=== PATIENT | male | born 1960 | race Caucasian/White ===

== ENCOUNTER → 2017-05-16 | Outpatient (CLI) | payer OTHER ==
--- NOTE | 2017-05-17 05:53 | PAP/PSG TECHNICIAN REPORT ---
[facility] [employer] Worker Polysomnogram Report Study name: None Report date: 05/17/2017 Study date: 05/16/2017 Referring Physician: DOT MIRANDA Name: EVELYN AKERS Interpreting Physician: Tyron Nicole D.O. 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 Sex: Male Age: 57 StudyType: PSG Weight: 295 lbs Height: 57 years, Height 5' 9" BMI: 43.56 Medications: ATORVASTATIN CALCIUM 40 MG, FUROSEMIDE 40 MG, HYDRALAZINE HCL 50 MG, ISOSORBIDE MONO TITRATE 60 MG, LISINOPRIL 10 MG, POTASSIUM CL 20 MEQ, SPIRONOLACTONE 25 MG, TAMSULOSIN HCL 0.4 MG Patient History PATIENT HAS HISTORY OF HYPERTENSION, LOUD SNORING, FATIGUE AND DAYTIME SLEEPINESS. HE IS HERE TODAY FOR AN EVALUATION FOR ANT. 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 ESS = 5 RM 5 Parameters Monitored NPSG: E1-M2, E2-M1, Fp1-M2, Fp2-M1, F3-M2, F4-M2, F4-M1, C3-M2, C4-M2, C4-M1, O1-M2, O2-M2, O2-M1, T3-M2, T4-M1, P3-M2, P4-M1, CHIN1, CHIN2, HR, EKG, Legs, PFLOW, SNOR, FLOW, CFLOW, Tidal Volume, THOR, ABDO, SpO2, PLTH, CPRESS, ETCO2 Wave, ETCO2, pH Sleep Architecture Sleep Stages Time at Lights Off 10:43:20 PM STAGES Time (min.) TST (%) Time at Lights On 5:26:20 AM Wake 221.0 -- Total Recording Time (TRT) 403.50 min. N1 27.5 15 Total Sleep Period (TSP) 383.0 min. N2 144.5 79 Total Sleep Time (TST) 182.0min. N3 7.0 4 Awake Time 221.0 min. REM 3.0 2 Wake after Sleep Onset 201.0 min. Sleep Efficiency (SE) 45 % Sleep Onset Latency (NIKOLE) 20.0 min. Number of Stage 1 Shifts None Awakenings 19 Stage Changes 81 Number of REM periods 3 REM 3.0 2 REM Latency 258.0 min. NREM 179.0 98 Body Position Analysis Supine Right Left Side Prone Vertical Total Sleep Time (min.) 90.3 134.3 41.0 175.31 47.5 0.0 Total Sleep Time (%) 0% 74% 23% 96 4% N/A% Total Sleep Time REM (min.) 0.0 3.0 0.0 None 0.0 0.0 Total Sleep Time NREM (min.) 0.0 131.3 41.0 None 6.7 0.0 Intermittent Wake (min.) 90.3 59.9 29.9 None 40.8 0.0 Total Sleep Period (%) 23% None None None None None Arousals Myoclonus (PLM) * Events Count Index Events Count Index Spontaneous 20 7 Events Awake (PLMW) 265 71.9 Respiratory 63 21.4 Events Asleep w/ Arousal (PLMA) 5 1.6 PLM 5 2 Events Asleep w/o Arousal (PLMS) 68 22.4 Snoring 21 7 Total Asleep 73 24.1 Total 109 36 Total 338 50 Respiratory Analysis * CA OA MA CH H RERA Total Count 0 28 0 0 213 0 241 Index 0.0 9.2 0.0 0 70.2 0 79.5 Mean Duration 0.0 20.9 0.0 0.00 18.1 0.0 18.5 Longest Duration 0.0 34.7 0.0 0.00 0.0 0.0 40.9 Respiratory Event Summary Total Supine ~Supine Right Left Prone REM NREM Apneas Count 28 N/A 28 13 10 5 2 26 Index 9.2 N/A 9 5.8 14.6 45 40 9 Hypopneas (4% Desat) Count 213 N/A 213 169 43 1 1 212 Index 70.2 N/A 70 75.5 62.9 9.0 20.0 71.1 Apneas & All Hypopneas Count 241 N/A 241 182 53 6 3 238 Index 79.5 N/A 79 81 78 54 60.0 79.8 Respiratory Events ([place] Sander+All Hyp+RERA) Count 241 N/A 241 182 53 6 3 238 Index 79.5 N/A 79 81.3 77.6 53.8 60.0 79.8 Respiratory Related Arousal Count 63 N/A 65 40 21 4 2 63 Index 21.4 N/A 21 18 31 36 40 21 Snoring Analysis Supine Right Left Prone REM NREM Total Snore duration 10.4 min Snores count N/A 378 118 21 0 517 517 Snore mean duration 1.2 Sec Snores index N/A 169 173 188 0.0 173.3 170.4 TST with snoring (%) 5.7% Desaturation Event Summary: Minimum %SpO2 Event Count Mean/Min/Max Duration(sec.) Desaturation Index % Time In Bed > 90 191 23.0 / 7.5 / 59.8 166.3 17.9 86 - 90 241 21.7 / 6.9 / 59.8 61.2 61.4 81 - 85 22 13.7 / 8.0 / 24.8 17.2 19.9 76 - 80 0 N/A 0.0 0.7 71 - 75 0 N/A 0.0 0.0 66 - 70 0 N/A 0.0 0.0 61 - 65 0 N/A 0.0 0.0 56 - 60 0 N/A 0.0 0.0 51 - 55 0 N/A 0.0 0.0 < 50 0 N/A 0.0 0.0 Total REM NREM Awake <50% 0.0 min. 0.0 min. 0.0 min. 0.0 min. 51 - 60% 0.0 min. 0.0 min. 0.0 min. 0.0 min. 61 - 70% 0.0 min. 0.0 min. 0.0 min. 0.0 min. 71 - 80% 2.7 min. 0.7 min. 1.9 min. 0.0 min. 81 - 90% 312.7 min. 1.9 min. 147.2 min. 163.6 min. 91 - 100% 68.9 min. 0.4 min. 29.8 min. 38.7 min. Average 88 84 88 88 Minimum SpO2 74 78 74 80 Desaturation Event Index 51.1 100.0 83.1 25.2 # Desat. 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 kAers slept in the right, left and supine positions. PVC's noted. Leg movements noted. No bruxism noted. Snoring was noted and scored as a 3 on a scale of 1 through 5. (0=no snoring, 5=snoring loud enough to be heard through a closed door or down the [address]) Mr. Akers awoke to use the restroom 2 times during the night. Mr. Akers stated I did not sleep as well as I do when I am in my own bed. Mr. Akers sat at the edge of the bed several times coughing throughout the night. He complained that air was dry and was the reason he was coughing so much. The final report will be interpreted and signed by a sleep physician. The completed physician report will then be placed in the patient medical record. Therapy (cm H2O) 0 TIB (min.) 403.0 TST (min.) 182.0 Sleep Onset (min.) 20.0 REM Onset From Sleep (min.) 258.0 Sleep Efficiency % 45 Wakefulness (%) 55 Wakefulness (min.) 221.0 NREM 1 (%) 15 NREM 1 (min.) 27.5 NREM 2 (%) 79 NREM 2 (min.) 144.5 NREM 3 (%) 4 NREM 3 (min.) 7.0 REM (%) 2 REM (min.) 3.0 # Arousals 109 Arousal Index 36 # Snore 517 Snore Index 170.4 AHI 79.5 AHI Supine N/A AHI Non-Supine 79 NREM AHI 79.8 REM AHI 60.0 RDI 79.5 # Obstructive Apnea 28 # Central Apnea 0 # Mixed Apnea 0 # Hypopneas 213 RERAs 0 Total Respiratory Events 243 Time Below SpO2 89% (min.) 116.6 Mean NREM SpO2 (%) 88 Mean REM SpO2 (%) 84 Mean Sleep SpO2 (%) 88 Min NREM SpO2 (%) 74 Min REM SpO2 (%) 78 Position Supine (min.) 90.3 Position Non-supine (min.) 182.0 LM Index Sleep 24.1 LM Index NREM 23.5 LM Index REM 60.0 Mean Heart Rate (bpm) 68 Min Heart Rate (bpm) 54
--- NOTE | 2017-05-22 07:40 | Sleep Study ---
Sleep Study Report Date of Service: 05/16/2017 Sleep Study Report Clinical data: The patient is a 57-year-old male referred by DOT Malave. He has a history of snoring, fatigue, and excessive daytime somnolence. He has a history of hypertension. His [place] Sleepiness Scale score is 5 out of a possible 24. This was a diagnostic in-lab sleep study. Sleep architecture: The total sleep period was 383.0 minutes. The total sleep time was 182.0 minutes. The sleep efficiency was severely reduced to 45%. The sleep latency was 20 minutes. Wake after sleep onset was significantly elevated at 201.0 minutes. The REM latency was severely prolonged to 258 minutes. Sleep consisted of stage N1 15%, stage N2 79%, stage N3 4%, and stage REM 2%. Arousal data: The patient had a total of 109 arousals including 20 spontaneous arousals, 63 respiratory arousals, 5 PLM arousals, and 21 snoring arousals. The arousal index was significantly elevated at 36. PLM data: Patient had a total of 73 periodic limb movements of sleep for a PLM index of 24.1. There were 5 arousals associated with limb movements for a PLM arousal index of 1.6. EKG: The cardiac rates ranged from 54 to 83 beats per minute. The average heart rate was 68 beats per minute. The rhythm was normal sinus. There were occasional PVCs. Respiratory data: Patient had a total of 241 respiratory events including 28 obstructive apneas and 213 hypopneas. The longest apnea was 34.7 seconds. The mean duration of the apneas was 20.9 seconds. The mean duration of the hypopneas was 18.1 seconds. The apnea-hypopnea index was elevated at 79.5 events per hour. This represents severe sleep apnea. Oximetry data: The average saturation for the night was 88%. The minimum saturation was 74%. There was a total of 224.7 minutes with saturations less than 89%. Change Management Consultant comments: Patient slept on the right, left, and supine positions. PVCs were noted. Leg movements noted. No bruxism noted. Snoring was noted and scored as a 3 on a scale of 1 through 5. The patient awaken to use the restroom 2 times during the night. He sat on the edge of the bed several times coughing throughout the night. He complained that air was dry and was the reason he was coughing so much. Impressions: 1. Obstructive sleep apnea-severe Comments: Patient had a severe decrease in sleep efficiency. He had relatively little sleep in the first half of the night. This is why a split study could not be done. His sleep efficiency was poor. His sleep architecture showed most of the night was just in stage N1 and stage N2 with very little stage N3 or REM sleep. His sleep was very poorly consolidated. There were a modest number of limb movements but with relatively few arousals. He had significant hypoxia throughout most of the night. Recommendations: 1. It is advised that the patient be given a trial of nasal CPAP. This could be accomplished by referring the patient back for a CPAP titration study. Alternatively he could be set up with an auto CPAP device. 2. The patient has a severe elevation of body mass index. A weight reduction program is advised. 3. If possible the patient should avoid sleeping in the supine position. Typically there is more respiratory events supine than other positions. 4. The patient should be advised of the appropriate principles of sleep hygiene including having a regular sleep-wake schedule and allowing approximately 7.5 hours of sleep per night. Copies To 1: Tyron Nicole DO; Fatou Donovan C.R.N.P.
== END | disposition home or self-care (01) ==
LOC: C.NEUR 21:00
PROVIDERS: ATTEND Nurse Practitioner Adult Health
DX: G47.33 Obstructive sleep apnea (adult) (pediatric) (principal)

== ENCOUNTER 2017-06-24 08:53 | Emergency (ER) | payer OTHER ==
[~2017-06-24] VITALS: Ht 175.3 cm; Wt 146.6 kg
[2017-06-24 09:07] VITALS: TEMP 38; Ht 175.3 cm; Wt 146.6 kg
[2017-06-24] MEDS ORDERED: ACETAMINOPHEN 500 MG TAB PO STA (10:03)
--- NOTE | 2017-06-24 10:04 | DIAGNOSTIC IMAGING REPORT ---
CHEST ONE VIEW PORTABLE CLINICAL HISTORY: cough, fever COMPARISON STUDY: 02/03/2010 FINDINGS: The heart is enlarged. There is no failure. There is no focal pulmonary consolidation. There are no pleural effusions. There is a suspected lung cyst/bulla at the right lung base.[ IMPRESSION: No active disease in the chest. Electronically signed by: Heath Parra M.D. 06/24/2017 10:03 AM Dictated Date/Time: 06/24/2017 10:02 AM
[2017-06-24 10:41] LABS: BUN/CREATININE RATIO 14.1 (10-20); CALCIUM 9.1 mg/dl (8.5-10.1); CREATININE 1.21 mg/dl (0.60-1.40); POTASSIUM 4.5 mmol/L (3.5-5.1)
[2017-06-24 10:43] LABS: ALB/GLOB RATIO 0.7 (0.9-2)
[2017-06-24 10:54] LABS: BASO % 0.7 %; BASO ABS # 0.05 K/uL (0-0.2); COMPLETE YES; EOS % 1.2 %; HEMATOCRIT 35.5 % (42-52); IG% 0.5 %; LYMPH % 12.9 %; LYMPH ABS # 0.99 K/uL (1.2-3.4); MEAN CELL VOLUME 95.9 fL (80-100); MEAN CORPUSCULAR HEMOGLOBIN 33.2 pg (25-34); MEAN CORPUSCULAR HGB CONC 34.6 g/dl (32-36); MEAN PLATELET VOLUME 10.8 fL (7.4-10.4); NEUT % 57.7 %; PLATELET COUNT 252 K/uL (130-400); WHITE BLOOD COUNT 7.66 K/uL (4.8-10.8)
[2017-06-24] MEDS ORDERED: AMOX875T PO (12:09)
[2017-06-24] MEDS ORDERED: AMOXICILLIN/CLAVULANATE TAB 875 MG TAB PO ONE (12:15)
[2017-06-24] MEDS ORDERED: TRIMETHOPRIM/POLYMYXIN B OP ONE (12:15)
[2017-06-24] MEDS ORDERED: SPIRONOLACTONE (12:32)
[2017-06-24] MEDS ORDERED: HYDRALAZINE HCL (12:32)
[2017-06-24] MEDS ORDERED: TAMSULOSIN HCL (12:32)
[2017-06-24] MEDS ORDERED: ISOS10TA5 (12:32)
[2017-06-24] MEDS ORDERED: POTASSIUM CHLORIDE (12:32)
[2017-06-24] MEDS ORDERED: LISIPOW (12:32)
[2017-06-24] MEDS ORDERED: ATORVASTATIN (12:32)
[2017-06-24] MEDS ORDERED: FUROSEMIDE (12:32)
[2017-06-24] MEDS ORDERED: LABETALOL (12:32)
[2017-06-24 12:42] VITALS: BP 125/80; PULSE 68; O2SAT 93
--- NOTE | 2017-06-24 12:49 | EMERGENCY ROOM VISIT NOTE ---
History Report prepared by Lisandra: Todd Morales Under the Supervision of: Dr. Carson Canada M.D. First contact with patient: 09:37 Chief Complaint: RESPIRATORY PROBLEMS Stated Complaint: CLOGGED EAR,SINUS,POSSIBLY UPPER RESP. INFECTION Nursing Triage Summary: Patient states his right ear is clogged and cough for approx one week that is productive of thick green sputum. History of Present Illness The patient is a 57 year old male who presents to the Emergency Room with complaints of a persistent illness that started around 4 nights ago. He says that he has taken only [id number] medications so far, including Karuna- [place], Cold-Eeze, and Guaifenesin. The patient notes that his ears are clogged , and he has a cough. He says that he feels feverish, and is a bit short of breath. He says that his eyes started draining 2 days ago. He states that he took Tylenol last night, but none today. The patient adds that he is a smoker. He has a noted history of cardiomyopathy from not taking blood pressure medications previously, as well as controlled hypertension. Pt denies LOC, headache, diaphoresis, visual changes, neck pain, chest pain, nausea, vomiting, abdominal pain, back pain, melena, hematochezia, urinary symptoms, numbness, weakness, lymphadenopathy, rash, or other complaints. Source of History: patient Onset: 4 nights ago Position: other (global - illness) Timing: other (persistent) Associated Symptoms: + fevers, + cough, + SOB Note: Associated symptoms: Eye drainage. Ears are clogged. Review of Systems See HPI for pertinent positives and negatives. A total of ten systems were reviewed and were otherwise negative. Past Medical & Surgical Medical Problems: (1) Cardiomyopathy (2) HTN (hypertension) Family History Gallbladder disease Heart disease Hypertension Social History Smoking Status: Current Every Day Smoker Marital Status: Occupation Status: employed Current/Historical Medications Scheduled Amoxicillin & Pot Clavulanate (Augmentin 875-125 mg), 875 MG PO BID Miscellaneous Medications Isosorbide Mononitrate (Isosorbide Mononitrate) [Atorvastatin], Unknown Dose [Furosemide] [Hydralazine Hcl] [Labetalol] [Lisinopril], Unknown Dose [Potassium Chloride], Unknown Dose [Spironolactone], Unknown Dose [Tamsulosin Hcl], Unknown Dose Allergies Coded Allergies: No Known Allergies (Unverified , OTHER, 06/24/17) Physical Exam Vital Signs Date Time Temp Pulse Resp B/P (MAP) Pulse Ox O2 Delivery O2 Flow Rate FiO2 06/24/17 12:42 68 16 125/80 93 06/24/17 10:59 78 18 97/54 93 Room Air 06/24/17 09:07 38.0 86 20 122/71 93 Room Air Physical Exam GENERAL: Awake, alert, well-appearing, in no distress HENT: Normocephalic, atraumatic. Tympanostomy tubes in left ear. Right ear is erythematous and bulging. EYES: Mild greenish drainage bilaterally and conjunctival erythema. Sclera non- icteric. NECK: Supple. No nuchal rigidity. FROM. No JVD. RESPIRATORY: Clear to auscultation. CARDIAC: Regular rate, normal rhythm. Extremities warm and well perfused. Pulses equal. ABDOMEN: Soft, non-distended. No tenderness to palpation. No rebound or guarding. No masses. RECTAL: Deferred. MUSCULOSKELETAL: Chest examination reveals no tenderness. The back is symmetrical on inspection without obvious abnormality. There is no CVA tenderness to palpation. No joint edema. LOWER EXTREMITIES: Calves are equal size bilaterally and non-tender. No edema. No discoloration. NEURO: Normal sensorium. No sensory or motor deficits noted. SKIN: No rash or jaundice noted. Medical Decision & Procedures ER Provider Diagnostic Interpretation: X-ray: Per my interpretation, radiologist review. CHEST ONE VIEW PORTABLE CLINICAL HISTORY: cough, fever COMPARISON STUDY: 02/03/2010 FINDINGS: The heart is enlarged. There is no failure. There is no focal pulmonary consolidation. There are no pleural effusions. There is a suspected lung cyst/bulla at the right lung base.[ IMPRESSION: No active disease in the chest. Electronically signed by: Heath aPrra M.D. 06/24/2017 10:03 AM Dictated Date/Time: 06/24/2017 10:02 AM Laboratory Results 06/24/17 09:40 Red Blood Count 3.70, Mean Corpuscular Volume 95.9, Mean Corpuscular Hemoglobin 33.2, Mean Corpuscular Hemoglobin Concent 34.6, Mean Platelet Volume 10.8, Neutrophils (%) (Auto) 57.7, Lymphocytes (%) (Auto) 12.9, Monocytes (%) (Auto) 27.0, Eosinophils (%) (Auto) 1.2, Basophils (%) (Auto) 0.7, Neutrophils # (Auto ) 4.42, Lymphocytes # (Auto) 0.99, Monocytes # (Auto) 2.07, Eosinophils # (Auto ) 0.09, Basophils # (Auto) 0.05 06/24/17 09:40 Test 06/24/17 09:40 06/24/17 10:00 White Blood Count 7.66 K/uL (4.8-10.8) Red Blood Count 3.70 M/uL (4.7-6.1) Hemoglobin 12.3 g/dL (14.0-18.0) Hematocrit 35.5 % (42-52) Mean Corpuscular Volume 95.9 fL (80-100) Mean Corpuscular Hemoglobin 33.2 pg (25-34) Mean Corpuscular Hemoglobin Concent 34.6 g/dl (32-36) Platelet Count 252 K/uL (130-400) Mean Platelet Volume 10.8 fL (7.4-10.4) Neutrophils (%) (Auto) 57.7 % Lymphocytes (%) (Auto) 12.9 % Monocytes (%) (Auto) 27.0 % Eosinophils (%) (Auto) 1.2 % Basophils (%) (Auto) 0.7 % Neutrophils # (Auto) 4.42 K/uL (1.4-6.5) Lymphocytes # (Auto) 0.99 K/uL (1.2-3.4) Monocytes # (Auto) 2.07 K/uL (0.11-0.59) Eosinophils # (Auto) 0.09 K/uL (0-0.5) Basophils # (Auto) 0.05 K/uL (0-0.2) RDW Standard Deviation 43.1 fL (36.4-46.3) RDW Coefficient of Variation 12.4 % (11.5-14.5) Immature Granulocyte % (Auto) 0.5 % Immature Granulocyte # (Auto) 0.04 K/uL (0.00-0.02) Anion Gap 9.0 mmol/L (3-11) Est Creatinine Clear Calc Drug Dose 94.0 ml/min Estimated GFR () 75.5 Estimated GFR (Non- 65.1 BUN/Creatinine Ratio 14.1 (10-20) Calcium Level 9.1 mg/dl (8.5-10.1) Total Bilirubin 0.5 mg/dl (0.2-1) Aspartate Amino Transf (AST/SGOT) 19 U/L (15-37) Alanine Aminotransferase (ALT/SGPT) 23 U/L (12-78) Alkaline Phosphatase 61 U/L (45-117) Total Protein 7.3 gm/dl (6.4-8.2) Albumin 3.1 gm/dl (3.4-5.0) Globulin 4.2 gm/dl (2.5-4.0) Albumin/Globulin Ratio 0.7 (0.9-2) Influenza Type A Antigen Neg for Influ A (NEG) Influenza Type B Antigen Neg for Influ B (NEG) Laboratory results reviewed by me Medications Administered Medications (Trade) Dose Ordered Sig/Rudolph Route Start Time Stop Time Status Last Admin Dose Admin Acetaminophen (Tylenol Tab) 1,000 mg NOW STAT PO 06/24/17 10:03 06/24/17 10:04 DC 06/24/17 10:09 1,000 MG Polymyxin/ Trimethoprim Sulfate (Polytrim Oph Soln) 1 drops NOW ONCE OP 06/24/17 12:15 06/24/17 12:16 DC 06/24/17 12:42 1 DROPS Amoxicillin/ Clavulanate Potassium (Augmentin Tab) 875 mg NOW ONCE PO 06/24/17 12:15 06/24/17 12:16 DC 06/24/17 12:41 875 MG ECG Indication: SOB/dyspnea Rate (beats per minute): 85 Rhythm: sinus rhythm Findings: 1st degree AV block, LAFB, no acute ischemic change, no ectopy, other (poor R-wave progression) ED Course 1000: The patient was evaluated in room A4B. A complete history and physical exam was performed. 1003: Ordered Tylenol Tab 1000 mg PO. 1210: I reevaluated the patient and he is feeling better. Discussed results and discharge instructions: he verbalized understanding and agreement. The patient is ready for discharge. 1215: Ordered Augmentin Tab 875 mg PO, Polytrim Oph Soln 1 drops OP. Medical Decision Triage Nursing notes reviewed. The patient's presentation and history were concerning for flu like symptoms. Etiologies such as viral syndrome, otitis, pharyngitis, pneumonia, urinary tract infection, sepsis, bacteremia, meningitis, as well as others were entertained. The patient was evaluated. He had conjunctivitis and otitis media on examination. He had a mild cough present. Chest x-ray and blood work were performed. The patient was not expressing any chest pain. He was not short of breath or hypoxic. The patient had no evidence of pneumonia on chest x-ray. His seizing chemistry panel were unremarkable. Flu testing came back negative. He was treated with Tylenol. He was feeling better with this. He was also given Polytrim for his eyes and Augmentin for the ear. The patient will be prescribed Augmentin. He will need close follow-up with the primary clinic. The patient had one mildly low blood pressure however this was when he was resting. He was asymptomatic. Recheck was normal. If the patient worsens in any way he will be back. I gave my usual and customary discussion regarding this issue. By the evaluation outlined above other emergent etiologies such as those listed in the differential, as well as others, were deemed relatively unlikely. The patient was educated about the findings as listed above. All questions were answered and the patient was pleased with the treatment. Return instructions were outlined and the patient was discharged in stable condition. [facility] for a recheck of the current condition. Medication Reconcilliation Current Medication List: was personally reviewed by me Blood Pressure Screening Patient's blood pressure: Normal blood pressure Impression Primary Impression: Otitis media Additional Impressions: Conjunctivitis URI (upper respiratory infection) Fever Scribe Attestation The scribe's documentation has been prepared under my direction and personally reviewed by me in its entirety. I confirm that the note above accurately reflects all work, treatment, procedures, and medical decision making performed by me. Departure Information Dispostion Home / Self-Care Prescriptions Amoxicillin & Pot Clavulanate (Augmentin 875-125 mg) 1 Tab Tab 875 MG PO BID, #19 TAB Prov: Carson Canada MD 06/24/17 Referrals No Doctor, Assigned (PCP) Patient Instructions My [facility] Additional Instructions Amoxicillin Clavulanate (Augmentin) 875mg: Take one pill twice daily for 10 days for your infection. All antibiotics can cause diarrhea. If this occurs and you feel worse or it does not resolve in 1-2 days follow up with your doctor or return to the Emergency Department as this could be signs of serious underlying problems. Any medication can cause an allergic reaction, stop the pills immediately and return to the ER for rash, hives, breathing difficulties, or swelling. Polytrim Eyedrops: One drop to affected eye(s) every 3-4 hours while awake for 3 -5 days. If you are still having symptoms even may need to extend usage. Stop using if you develop severe pain or swelling. Return to the ER for evaluation. Acetaminophen(Tylenol) may be used for fever or pain. Use 1000mg every six hours as needed. Avoid using more than 4000mg in a 24 hour period. (AND/OR) Ibuprofen(Motrin, Advil) may be used for fever or pain. Use 600mg every six hours as needed. Take with food. Avoid using more than 2400mg in a 24 hour period. Do not use 2400mg per day for more than three consecutive days without physician direction. Prolonged inappropriate use can lead to stomach upset or ulcers. Rest and drink plenty of fluids. Controlling your fever with Tylenol and Ibuprofen as above will make you feel better. Wash your hands after nose blowing, sneezing, or coughing. Most germs are spread through contact, therefore improper hygiene may result in your close contacts and loved ones becoming ill just like you. Return to the ER for severe headache, neck stiffness, chest pain, difficulty breathing, fevers, vomiting, worsening of your condition, or as needed. Follow up with your primary physician this week for a recheck of your current condition. Problem Qualifiers
== END 2017-06-24 12:43 | disposition home or self-care (01) ==
LOC: C.EDB 08:55 → C.EDA 12:43
DX: H66.91 Otitis media, unspecified, right ear (principal); J06.9 Acute upper respiratory infection, unspecified; H10.9 Unspecified conjunctivitis; F17.210 Nicotine dependence, cigarettes, uncomplicated; I42.9 Cardiomyopathy, unspecified; I10 Essential (primary) hypertension; Z82.49 Family history of ischemic heart disease and other diseases of the circulatory system

== ENCOUNTER 2022-11-13 22:23 | Inpatient (IN) ==
[2022-11-13] MEDS ORDERED: RAPID SEQUENCE INDUCTION BAG ONE (22:25)
[2022-11-13] MEDS ORDERED: HEPARIN (PORCINE) 1000 UNIT/ML 10 ML (CATH LAB USE ONLY) ONE (22:37)
[2022-11-13] MEDS ORDERED: MIDAZOLAM HCL 1 MG/ML 2ML VIAL ONE (22:37)
[2022-11-13] MEDS ORDERED: fentaNYL citrate PF 100 MCG/2 ML VIAL ONE (22:38)
[2022-11-13] MEDS ORDERED: CALCIUM GLUCONATE 1000 MG/60 ML NSS IV ONE (22:38)
[2022-11-13] MEDS ORDERED: niCARdipine HCL INJ 2.5 MG/ML 10 ML AMP ONE (22:38)
[2022-11-13] MEDS ORDERED: NITROGLYCERIN/D5W 100MCG/ML 20ML SYR ONE (22:38)
[2022-11-13 22:50] LABS: Basophils # (auto) 0.07 K/uL (0-0.2); Basophils % (auto) 0.5 %; Eosinophils # (auto) 0.05 K/uL (0-0.50); Eosinophils % (auto) 0.4 %; Hematocrit (blood only) 45.3 % (42.0-52.0); Hemoglobin 16.1 g/dl (14.0-18.0); Immature Granulocytes # (auto) 0.04 K/uL (0.01-0.20); Immature Granulocytes % (auto) 0.3 %; Lymphocytes # (auto) 1.24 K/uL (1.2-3.4); Lymphocytes % (auto) 8.9 %; Mean Corpuscular Hgb Conc 35.5 g/dL (32.0-36.0); Mean Corpuscular Volume 92.8 fL (80.0-100.0); Mean Platelet Volume 12.1 fL (9.4-12.4); Monocytes # (auto) 1.65 K/uL (0.11-0.59); Monocytes % (auto) 11.8 %; Neutrophils # (auto) 10.96 K/uL (1.40-6.50); Neutrophils % (auto) 78.1 %; Platelet Count 199 K/uL (130-400); RDW Coefficient of Variation 12.9 % (11.5-14.5); Red Blood Count 4.88 M/uL (4.70-6.10); White Blood Count 14.01 K/ul (4.8-10.8)
[2022-11-13] MEDS ORDERED: FUROSEMIDE 40 MG/4 ML VIAL IV ONE ×2 (22:50→23:50)
[2022-11-13] MEDS ORDERED: PROPOFOL IV EMULSION 10 MG/ML 100 ML VIAL IV ONE (22:52)
[2022-11-13 23:08] LABS: Albumin Level 4.3 gm/dl (3.4-5.0); BUN Creatinine Ratio 17.4 (10-20); Bilirubin Direct 0.2 mg/dl (0-0.2); Creatinine Clr Calc Pharmacy 106.2 ml/min; Est GFR (African American) 82.7 ml/min; Est GFR (Non-African American) 71.4 ml/min; Magnesium 1.5 mg/dl (1.7-2.4); Potassium 4.1 mmol/L (3.5-5.1); Total Protein 7.5 gm/dl (6.0-8.3)
[2022-11-13 23:14] LABS: Troponin I High Sensitivity 47.7 pg/ml (0-20)
[2022-11-13] MEDS ORDERED: NITROGLYCERIN/D5W 100 MCG/ML BTL ONE (23:19)
[2022-11-13 23:21] LABS: Partial Thromboplastin Ratio 0.9; Partial Thromboplastin Time 24.8 Seconds (21.0-31.0); Prothrombin Time 10.9 Seconds (9.0-12.0)
--- NOTE | 2022-11-13 23:40 | XRay Report ---
XR chest 1V portable HISTORY: Atypical chest pain. Shortness of breath. COMPARISON: Chest 06/22/2017. FINDINGS: The endotracheal tube terminates approximately 4.3 cm from the marlene. No pneumothorax. No pleural effusions. The heart is mildly enlarged. There is interstitial/vascular thickening most prono unced on the right consistent with mild asymmetric pulmonary edema. No focal lung consolidations iden tified. IMPRESSION: 1. No pneumothorax. 2. The endotracheal tube terminates 4.3 cm from the marlene. 3. Cardiomegaly with mild asymmetric pulmonary edema. ACT 112: Negative or not required by law. Electronically signed by: Naeem Guthrie M.D. 11/13/2022 11:38 PM
[2022-11-14] MEDS ORDERED: fentaNYL citrate PF 100 MCG/2 ML VIAL ONE
[2022-11-14] MEDS ORDERED: STAT IV Infusion **Titration per Protocol STA ×4 (00:09→01:30)
[2022-11-14] MEDS: propofoL 1,000 MG/100 ML VIAL IV SCH ×3 (00:15→09:13)
[2022-11-14] MEDS ORDERED: NITROGLYCERIN/D5W 100MCG/ML 250 ML IV SCH (00:15)
[2022-11-14] MEDS ORDERED: MIDAZOLAM HCL 1 MG/ML 2ML VIAL ONE (00:16)
[2022-11-14] MEDS ORDERED: PROPOFOL IV EMULSION 10 MG/ML 100 ML VIAL IV ONE (00:17)
--- NOTE | 2022-11-14 00:27 | History & Physical Report ---
Date of Service November 14, 2022 Assessment & Plan (1) Complete heart block: Plan: 62 y/o male w/ PMHx of CAD (NSTEMI 2010 w/ acute CHF), nonischemic cardiomyopathy, diet-controlled DM2, BPH, HTN, HLD, current tobacco use, morbid obesity, ANT on cpap who presented via EMS for a heart alert. New LBBB on top of existing bifascicular block. Hypertensive->bradycardic->complete heart block. Cardiac cath w/ essentially clean coronary arteries. Per cardiology recs, check TTE in AM, thyroid labs, Lyme. Hold home beta josias. ASCVD risk factor modification. Will also check iron studies (2) Acute respiratory failure with hypoxia: Plan: 2/2 bilateral heart failure. Per cardiology, did not feel bradycardia was main trigger of the heart failure. Diurese, s/p 2 doses of Lasix 40mg IV. Monitor Is/Os. Nitro drip, w/ vasopresor support to maintain MAP >65. At ~1AM, vent settings: tidal vol 500. peep 20. rr 30. fio2 80. p plat 29.6. norepi 0.05mcg/kg/min. propofol 10 mcg/kg/min. fentanyl 100mcg/hr (3) HTN (hypertension): Plan: Hold home labetalol and lisinopril-hctz (4) Cardiomyopathy: Plan: Nonischemic; workup above (5) Hyperlipidemia: Plan: Continue home atorvastatin (6) Sleep apnea: Plan: Hold home qhs cpap while on mechanical vent Plan FEN/GI: NPO. ICU electrolyte repletion protocol. ppx: SCDs code: full dispo: ICU Admission and Anticipated Discharge Date Admission Date: November 14, 2022 History of Present Illness Chief Complaint: heart alert Primary Care Provider: Margaret Holcomb PA-C 62 y/o male w/ PMHx of CAD (NSTEMI 2010 w/ acute CHF), nonischemic cardiomyopathy, diet-controlled DM2, BPH, HTN, HLD, current tobacco use, morbid obesity, ANT on cpap who presented via EMS for a heart alert. Patient had called EMS for severe SOB that started the day prior. He was hypertensive to 210s systolic. He has existing bifasicular disease and developed new LBBB followed by bradycardia and complete heart block. He was paced externally. He received 3 nitro in the field. He was noted to be in hypoxic resp failure and upon arrival to the ED, was intubated and brought to the laboratory director. The coronaries were essentially clean. A transvenous pacer was placed. Patient received total of 2 doses of IV Lasix 40mg, w/ pulmonary edema on cxr. Nitro drip was started and vasopressor support provided. Per chart review. 2017 cardiac cath w/ luminal disease in several vessels. Hx limited to chart review as patient on mechanical vent and back from laboratory director at time of my exam. Allergies Allergy/AdvReac Type Severity Reaction Status Date / Time No Known Allergies Allergy OTHER Verified 11/13/22 22:29 Home Medications Medication Instructions Recorded Confirmed Type atorvastatin 40 mg tablet 40 mg PO QPM 09/18/19 11/13/22 History isosorbide mononitrate 60 mg 60 mg PO BID 09/18/19 11/13/22 History tablet,extended release 24 hr labetalol 200 mg tablet 200 mg PO TID 09/18/19 11/13/22 History tamsulosin 0.4 mg capsule 0.4 mg PO QPM 09/18/19 11/13/22 History aspirin 81 mg tablet,delayed 81 mg PO BID 03/02/22 11/13/22 History release (Ecotrin Low Strength) lisinopril 20 1 tab PO BID 03/02/22 11/13/22 History mg-hydrochlorothiazide 12.5 mg tablet calcium carbonate 750 1 tab PO DIRECTED PRN 11/13/22 11/13/22 History mg-simethicone 80 mg chewable HEARTBURN/GAS tablet ([facility] Heartburn-Gas) Past Med/Surg History Medical History (Updated 11/14/22 @ 13:16 by Liam Curtis MD) Bifascicular block RBBB/LAFB -> pt unaware. follows with [facility] Dropper (CRYSTAL Duarte) BPH (benign prostatic hyperplasia) CAD (coronary artery disease) NSTEMI 2009 with acute CHF. --- pt denies any history of heart attack. Recent myocardial perfusion scan + for ischemia. No cath. Pt is medically managed. Cardiomyopathy 2009 echo with acute CHF showed EF 20-25% Most recent stress test showed EF WNL. Hyperlipidemia Hypertension Morbid obesity Nonischemic cardiomyopathy Sleep apnea cpap, "70% compliant" Surgical History H/O colonoscopy H/O tooth extraction History of cardiac cath "for cardiac clearance" negative, no stents. 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 On vent. HEENT: Atraumatic, normocephalic. Pulm: CTAB anteriorly. -wheezes, -rales, -rhonchi. Cardiac: RRR, -mrg. 2+ bilat lower extremity edema. Abdominal: Nontender, nondistended, soft. : + walters Integ: Warm, dry, intact. No erythema of peripheral IVs or R neck site. Results & Data Results & Data ([facility]) Vital Signs (Past 12 Hours) Vital Signs Temp Pulse Resp BP Pulse Ox O2 Del Method 11/13/22 22:35 43 L 11/13/22 22:21 36.4 C L 39 L 28 H 214/89 H 88 L Non-rebreather Laboratory Results Cardiac Enzymes 11/13/22 11/13/22 Range/Units 22:31 22:31 AST 31 (13-39) U/L Troponin I High Sens 47.7 H (0-20) pg/ml B-Natriuretic Peptide 558 H (0-100) pg/ml Coagulation 11/13/22 11/13/22 Range/Units 22:31 22:31 PT 10.9 (9.0-12.0) Seconds APTT 24.8 (21.0-31.0) Seconds B-Natriuretic Peptide 558 H (0-100) pg/ml CBC 11/13/22 Range/Units 22:31 WBC 14.01 H (4.8-10.8) K/ul RBC 4.88 (4.70-6.10) M/uL Hgb 16.1 (14.0-18.0) g/dl Hct 45.3 (42.0-52.0) % Plt Count 199 (130-400) K/uL Neut # (Auto) 10.96 H (1.40-6.50) K/uL Lymph # (Auto) 1.24 (1.2-3.4) K/uL [place] # (Auto) 1.65 H (0.11-0.59) K/uL Eos # (Auto) 0.05 (0-0.50) K/uL Baso # (Auto) 0.07 (0-0.2) K/uL Comprehensive Metabolic Panel 11/13/22 Range/Units 22:31 Sodium 139 (136-145) mmol/L Potassium 4.1 (3.5-5.1) mmol/L Chloride 102 (98-107) mmol/L Carbon Dioxide 28 (21-32) mmol/L BUN 19 (6-23) mg/dl Creatinine 1.09 (0.6-1.4) mg/dl Glucose 160 H (70-99(Fasting)) mg/dl Calcium 10.0 (8.5-10.1) mg/dl Direct Bilirubin 0.2 (0-0.2) mg/dl AST 31 (13-39) U/L ALT 28 (7-52) U/L Alkaline Phosphatase 57 (34-104) U/L Total Protein 7.5 (6.0-8.3) gm/dl Albumin 4.3 (3.4-5.0) gm/dl Intake and Output 11/13/22 11/13/22 11/14/22 14:59 22:59 06:59 Other: Weight 157.8 kg Weight Measurement Method Built in [facility] Patient Weight 11/14/22 06:59 Weight 157.8 kg Diagnostic Findings Chest X-Ray 11/13/22 22:26 XR chest 1V portable HISTORY: Atypical chest pain. Shortness of breath. COMPARISON: Chest 06/22/2017. FINDINGS: The endotracheal tube terminates approximately 4.3 cm from the marlene. No pneumothorax. No pleural effusions. The heart is mildly enlarged. There is interstitial/vascular thickening most pronounced on the right consistent with mild asymmetric pulmonary edema. No focal lung consolidations identified. IMPRESSION: 1. No pneumothorax. 2. The endotracheal tube terminates 4.3 cm from the marlene. 3. Cardiomegaly with mild asymmetric pulmonary edema. ACT 112: Negative or not required by law. Electronically signed by: aNeem Guthrie M.D. 11/13/2022 11:38 PM Code Status & VTE Plan Code Status full VTE Prophylaxis Plan VTE Prophylaxis will be ordered: Yes Critical Care Time 40 minutes Supervising Physician Co-Signing Physician Notes Attending addendum: I have physically seen this patient, have supervised the medical residents activities, and agree with the H&P unless as otherwise noted. Assessment and Plan: Complete heart block/new left bundle branch block/heart alert/hypertension/nonischemic cardiomyopathy- Patient to be admitted to the ICU following emergent cardiac catheterization by Dr. Horacio Rodriguez NPO Intubated on ventilator in the ED Levophed infusion for hypotension and bradycardia, propofol propofol infusion for sedation and fentanyl in the ED In the outpatient setting on labetalol and lisinopril/HCTZ, which will be held Hyperlipidemia- Atorvastatin on hold Sleep apnea- Uses CPAP at home Prophylaxis: Famotidine IV SCDs Chemical prophylaxis for DVT pending cardiac catheterization results Consults to nuclear spectroscopist team, and interventional cardiology Dr. Rodriguez Resident Activity Tracking Resident Involvement: Resident Care Provided Care Provided: Adult Hospital Medicine
--- NOTE | 2022-11-14 00:28 | Cardiology Consultation ---
Date of Consultation November 13, 2022 Assessment & Plan (1) Complete heart block: 2. Acute hypoxic respiratory failure 3. Acute heart failure 4. Hypertension 5. Left bundle branch block Patient here due to acute respiratory failure and acute heart failure. He may also have underlying pneumonia. Noted initially to be bradycardic with complete heart block. With bradycardia patient is hemodynamically stable to hypertensive and do not feel bradycardia is the primary precipitant of his heart failure. Etiology of complete heart block unclear. Could represent progression of prior conduction disease with previous EKG showing trifascicular block. With new left bundle branch block also reasonable to rule out ischemia. With patient's complete heart block and wide-complex escape rhythm we will proceed with transvenous temporary pacemaker placement. Repeat coronary angiography at that time. Discussed patient's care, procedure with patient's ex-, son. Further recommendations pending findings of coronary angiography. History of Present Illness Attending Physician: Horacio Rodriguez MD History of Present Illness Mr. Akers is a 62-year-old man seen emergently in the ED after heart alert activated due to complete heart block and acute respiratory failure. Recorded past medical history notable for nonischemic cardiomyopathy. Per report previously had an Acute HF/NSTEMI back in 2009. Last cardiac catheterization in 2017 at [facility] showed only luminal irregularities. 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 Also has a history of morbid obesity with ANT, type 2 diabetes, hypertension, BPH. Prior history of trifascicular block with RBBB, LAFB. History obtained from chart and from ER staff, family. Patient reportedly had been feeling unwell, "congested" for last several days. This evening became increasingly short of breath and contacted EMS. On EMS arrival was reportedly in respiratory distress, hypertensive with systolic pressures greater than 200s and bradycardic to the 30s to 40s and complete heart block. Given atropine, nitroglycerin in the field. On arrival to ED was intubated for increasing respiratory distress. Remained complete heart block with ventricular rate in the 40s with new LBBB. Initial electrolytes unremarkable. Chest x-ray showed cardiomegaly with right greater than left pulmonary edema. After initial intubation O2 sats remained in the mid 80s. Given 40 IV Lasix x1. Allergies Allergy/AdvReac Type Severity Reaction Status Date / Time No Known Allergies Allergy OTHER Verified 11/13/22 22:29 Home Medications Medication Instructions Recorded Confirmed Type atorvastatin 40 mg tablet 40 mg PO QPM 09/18/19 11/13/22 History isosorbide mononitrate 60 mg 60 mg PO BID 09/18/19 11/13/22 History tablet,extended release 24 hr labetalol 200 mg tablet 200 mg PO TID 09/18/19 11/13/22 History tamsulosin 0.4 mg capsule 0.4 mg PO QPM 09/18/19 11/13/22 History aspirin 81 mg tablet,delayed 81 mg PO BID 03/02/22 11/13/22 History release (Ecotrin Low Strength) lisinopril 20 1 tab PO BID 03/02/22 11/13/22 History mg-hydrochlorothiazide 12.5 mg tablet calcium carbonate 750 1 tab PO DIRECTED PRN 11/13/22 11/13/22 History mg-simethicone 80 mg chewable HEARTBURN/GAS tablet ([facility] Heartburn-Gas) Patient History Medical History Bifascicular block RBBB/LAFB -> pt unaware. follows with [facility] [employer] Installer (CRYSTAL Duarte) BPH (benign prostatic hyperplasia) CAD (coronary artery disease) NSTEMI 2009 with acute CHF. --- pt denies any history of heart attack. Recent myocardial perfusion scan + for ischemia. No cath. Pt is medically managed. Cardiomyopathy 2009 echo with acute CHF showed EF 20-25% Most recent stress test showed EF WNL. Hyperlipidemia Hypertension Morbid obesity Sleep apnea cpap, "70% compliant" Surgical History H/O colonoscopy H/O tooth extraction History of cardiac cath "for cardiac clearance" negative, no stents. 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 Feels Safe at Home: Yes Assistive Devices: CPAP, Glasses and Hearing Aid - Bilateral Review of Systems Review of Systems: Unobtainable due to endotracheal tube Physical Exam Physical Exam: General: Intubated, sedated HEENT: Sclerae anicteric Lungs: Distant breath sounds anterior Cardiac: Distant heart sounds, bradycardic, regular, no murmurs Vascular: 2+ radial bilaterally Abdomen: Soft, nontender Extremities: Well perfused, trace edema, mild chronic venous stasis changes Results & Data ([facility]) Vital Signs (Past 12 Hours) Vital Signs Temp Pulse Resp BP Pulse Ox O2 Del Method 11/13/22 22:35 43 L 11/13/22 22:21 97.5 F L 39 L 28 H 214/89 H 88 L Non-rebreather PG Care Time/CCT Total # of Minutes Spent Total Time Spent with Patient: Total time spent is greater than 50% in coordination of care (as documented) at patient's floor/unit and/or counseling patient: Coding Level of Care Code 73010 IN/OBS CONSULT LVL 5,80M Diagnoses Complete heart block I44.2
--- NOTE | 2022-11-14 00:29 | Critical Care Consultation ---
Date of Consultation November 14, 2022 Assessment & Plan (1) Complete heart block: Reason Critically Ill: 62-year-old male presents to the ICU with hypoxic respiratory failure in the setting of complete heart block and hypertension with heart failure with reduced EF from previous nonischemic cardiomyopathy Neuro - Sedation: Propofol, fentanyl Cardiac - Complete heart blockunsure of etiology at this time, status post transvenous pacing wires -Lyme disease pending -Troponin mildly elevated. Coronary arteries without significant stenosis on catheterization -Cardiology consulted, will follow up recs -Currently paced at 60 with temporary pacer -Hold beta-josias for now -Continuous monitoring on telemetry Heart failure with reduced EFpatient with reported EF approximately 18%. No echo on file. We will follow-up TTE -Following heart block and significant hypertension, patient now with CHF exacerbation -Received 40 mg IV Lasix in the ED, with additional 40 IV in the [facility] Management Officer. Goal of -1 to 2 L per 24 hours -Holding antihypertensives for now as patient is currently hypotensive following sedation -Continue ASA HLDcontinue statin Respiratory - Acute hypoxic respiratory failurelikely secondary to CHF exacerbation following heart block and hypertension and patient with reduced EF -Emergently intubated in the emergency department due to severe hypoxia and respiratory distress -Current vent settings 28/500/20/80 percent -Chest x-ray with cardiomegaly with mild asymmetric pulmonary edema -Continue with diuresis -ID work-up pending to rule out pneumonia -Continuous pulse ox monitoring, wean vent as tolerated GI - N.p.o. RENAL/LYTES - Creatinine within normal limits, monitor routine BMPs and replete electrolytes as indicated Hold on IV fluid resuscitation as patient is currently in CHF exacerbation/hypoxic respiratory failure - Foleystrict I's and O's ENDO - No history of diabetes or thyroid disease, ICU hyperglycemic protocol HEME - H&H stable, monitor routine CBC ID - COVID-19 PCR pending Pro-Tristan pending No indication for antibiotics at this time, trend fever curve and follow-up lab work LINES/IV ACCESS - Peripheral IVs DVT PROPHYLAXIS - SCDs, subcu heparin I have personally spent 65 minutes of critical care time in the direct management of this patient. This is a life/limb threatening event. This includes time spent evaluating patient, direct bedside care, chart review, placing orders, interpretation of diagnostic studies, discussion with consultants, patient, and family members, as well as other required patient management activities. This time is exclusive of all separately billable procedures, and teaching time and separate from and in addition to any other critical care service time. Thank you for allowing us to participate in the care of this patient. Please refer to my attending physician's documentation for any further recommendations. (2) Acute respiratory failure with hypoxia: (3) HTN (hypertension): (4) Cardiomyopathy: (5) Sleep apnea: Supervising Physician Co-Signing Physician Notes Patient seen and examined. Please refer to my supplemental note for additional details. Agree with assessment plan as noted by AMY History of Present Illness Attending Physician: Angelo Ny MD History of Present Illness Patient is a 62-year-old male with past medical history of HTN, HLD, BPH, NSTEMI (2009), cardiomyopathy, bifascicular block, sleep apnea (CPAP at bedtime), morbid obesity, and HF R EF with estimated ejection fraction 18%. Presented to the emergency department via EMS in complete heart block and acute hypoxic respiratory failure. Patient's son stated that he was very short of breath y . Patient was intubated emergently in the ER and taken to the [facility] Management [facility] as a heart alert. Patient received transvenous pacemaker placement. He was noted to be hypertensive and chest x-ray revealed pulmonary edema. Patient was given 40 IV Lasix in the emergency department and additional 40 mg in the [facility] Management Officer. He was started on a nitro drip. He is sedated with propofol and fentanyl. He underwent cardiac catheterization, without indication for intervention. Patient now transferred to the ICU for further management at this time. Allergies Allergy/AdvReac Type Severity Reaction Status Date / Time No Known Allergies Allergy OTHER Verified 11/13/22 22:29 Home Medications Medication Instructions Recorded Confirmed Type atorvastatin 40 mg tablet 40 mg PO QPM 09/18/19 11/13/22 History isosorbide mononitrate 60 mg 60 mg PO BID 09/18/19 11/13/22 History tablet,extended release 24 hr labetalol 200 mg tablet 200 mg PO TID 09/18/19 11/13/22 History tamsulosin 0.4 mg capsule 0.4 mg PO QPM 09/18/19 11/13/22 History aspirin 81 mg tablet,delayed 81 mg PO BID 03/02/22 11/13/22 History release (Ecotrin Low Strength) lisinopril 20 1 tab PO BID 03/02/22 11/13/22 History mg-hydrochlorothiazide 12.5 mg tablet calcium carbonate 750 1 tab PO DIRECTED PRN 11/13/22 11/13/22 History mg-simethicone 80 mg chewable HEARTBURN/GAS tablet ([facility] Heartburn-Gas) Patient History Medical History Bifascicular block RBBB/LAFB -> pt unaware. follows with [facility] Engagement Director (CRYSTAL Duarte) BPH (benign prostatic hyperplasia) CAD (coronary artery disease) NSTEMI 2009 with acute CHF. --- pt denies any history of heart attack. Recent myocardial perfusion scan + for ischemia. No cath. Pt is medically managed. Cardiomyopathy 2009 echo with acute CHF showed EF 20-25% Most recent stress test showed EF WNL. Hyperlipidemia Hypertension Morbid obesity Sleep apnea cpap, "70% compliant" Surgical History H/O colonoscopy H/O tooth extraction History of cardiac cath "for cardiac clearance" negative, no stents. 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 Feels Safe at Home: Yes Assistive Devices: CPAP, Glasses and Hearing Aid - Bilateral Review of Systems Review of Systems: All systems reviewed & are unremarkable except as noted in HPI & below Physical Exam Constitutional: + morbidly obese and + mechanically ventilated Eyes: PERRL, conjunctivae normal, anicteric sclerae ENMT: external ear and nose normal, oropharynx normal Neck: trachea midline, no thyromegaly Respiratory: Coarse crackles auscultated bilaterally with diminished bases, symmetrical chest wall movement, mechanically ventilated Cardiovascular: Paced rhythm on monitor, no murmur, +1 edema bilateral lower extremities, unable to assess for JVD due to body habitus Gastrointestinal (Abdomen): Abdomen obese, soft, bowel sounds auscultated all 4 quadrants Musculoskeletal: Moves all extremities, exam limited due to sedation Skin: No rashes noted, warm and dry Neurologic: PERRLA, cough gag corneal intact. Patient does follow commands on ventilator. Exam limited due to sedation Psychiatric: Unable to assess Genitourinary: Indwelling Nuñez catheter present. Urine yellow and concentrated, no sediment observed Results & Data Results & Data ([facility]) Vital Signs (Past 12 Hours) Vital Signs Temp Pulse Resp BP Pulse Ox O2 Del Method FiO2 11/13/22 22:30 18 100 11/13/22 22:35 43 L 11/13/22 22:21 36.4 C L 39 L 28 H 214/89 H 88 L Non-rebreather Coding Level of Care Code 85039 CRITICAL CARE 1ST 30-74M Diagnoses Complete heart block I44.2 Acute respiratory failure with hypoxia J96.01 HTN (hypertension) I10 Cardiomyopathy I42.9 Sleep apnea G47.30
[2022-11-14] MEDS ORDERED: MIDAZOLAM HCL 1 MG/ML 2ML VIAL IV STA (00:39)
[2022-11-14] MEDS ORDERED: fentaNYL citrate 2,500 MCG/250 ML BAG IV ONE (00:39)
[2022-11-14] MEDS ORDERED: fentaNYL citrate 2,500 MCG/250 ML BAG IV SCH (00:45)
[2022-11-14] MEDS: PROPOFOL BOLUS FROM BAG IV PRN ×3 (00:45→04:22)
[2022-11-14] MEDS: fentaNYL BOLUS from BAG IV PRN ×4 (00:54→04:00)
--- NOTE | 2022-11-14 01:06 | Cardiac Catheterization ---
[facility] Data: Tool Analyst Cardiac Status Clinical evaluation leading to the procedure CAD Presenation: Non STEMI Diagnostic Physicians Name: Horacio Rodriguez MD Closure Device Recommendations: Medical Therapy and/or Counseling Cardiac Cath Procedure Full Procedure Date November 14, 2022 Pre-Procedure Diagnosis Pre-Procedure Diagnosis: Non STEMI and Cardiothoracic Symptom (Complete heart block) AUC Score AUC Score: 7 Post-Procedure Diagnosis Post-Procedure Diagnosis: Mild CAD and Elevated Intracardiac Pressures Procedure(s) Performed Procedure(s) Performed: Coronary Angiography, Left Heart Cath, Temporary Pacemaker and Ultrasound Guided Vascular Access Distribution Operations Supervisor Horacio Rodriguez MD Sanitarian Inspector(s) Showers Estimated Blood Loss Estimated Blood Loss: 10 Medication(s) Medication(s): Fentanyl, Heparin, Lidocaine 1%, Nicardipine and Nitroglycerin Medication(s): propofol Summary of Findings Indication: Acute heart failure, complete heart block Access: 6 Fr right radial artery under ultrasound guidance, 7 Fr right jugular vein under ultrasound guidance Catheters: [place] Findings: LM -normal caliber, no significant disease LAD -large caliber vessel that wraps around apex. Proximal/mid segment luminal irregularities. Gives off 3 medium diagonals without significant disease. Circumflex -medium caliber vessel, luminal irregularities RCA -dominant, large caliber, no significant disease LVEDP -25 CVP20 Temporary transvenous pacer placement Right jugular vein accessed under ultrasound guidance with micropuncture needle 7 Fr sheath placed Transvenous temporary pacing wire navigated into RV under fluoroscopic guidance Appropriate pacing confirmed to outputs of <0.5 mA Sheath sutured in place Final pacemaker settings: VVI at 60 bpm, output 5 mA Arterial Closure: TR band Summary: 1. Essentially normal coronary arteries angiographically 2. Left and right-sided heart failure 3. Successful transvenous temporary pacemaker placement Recommendations: Additional 40 of IV Lasix given in Tool Analyst Started on nitroglycerin infusion for hypertension Repeat echo in a.m. Check thyroid, Lyme serologies Hold home beta-joisas Continue ASCVD risk factor modification Further EP evaluation for possible permanent device during hospitalization Hemodynamics Rest Ao:: 230/89/132 Final Ao: 26/80/120 LV: 191/26 Recommendations Recommendations: Medical Therapy and/or Counseling Specimens Specimens: None Radiation Exposure (mGy) 1327 Contrast (mls) 35 Anesthesia Propofol Procedural Complication(s) None Disposition ICU I attest to the content of the Intraoperative Record and any orders documented therein. Any exceptions are noted below. [facility] Card Cath Procedure Codes Cardiac Catheterization Procedure 1: Cardiovascular Cath Procedures: 47456 Coronaries & LHC (+/-LV) & RHC Therapeutic Services & Ancillary Procedure 1: Cardiovascular Tx and Anc Procedures: 23872 Ultrasonic Guidance Vascular Access Procedure 2: Cardiovascular Tx and Anc Procedures: 77714 Ultrasonic Guidance Vascular Access Procedure 3: Cardiovascular Tx and Anc Procedures: 92676 Temp Pacer Insert PG Care Time/CCT Total # of Minutes Spent Total Time Spent with Patient: Total time spent is greater than 50% in coordination of care (as documented) at patient's floor/unit and/or counseling patient:
[2022-11-14] MEDS ORDERED: NOREPINEPHRINE/D5W 4 MG/250 ML IV ONE (01:14)
[2022-11-14] MEDS: MAGNESIUM SULFATE / D5W 1 GM/100 ML BAG IV SCH ×3 (01:15→05:15)
[2022-11-14] MEDS: NOREPINEPHRINE/D5W 4 MG/250 ML PLCT IV SCH ×3 (01:44→13:20)
[2022-11-14] MEDS ORDERED: Nursing to Pharmacy Communication SCH (02:00)
--- NOTE | 2022-11-14 02:20 | Emergency Department Note ---
History of Present Illness General Chief complaint: Heart Alert Time Seen by Provider: 11/13/22 22:26 Source: EMS History of Present Illness Provider complaint: Shortness of breath 62-year-old male presents emergency department via EMS. Per EMS a call was made to EMS for shortness of breath. When EMS arrived they stated that the patient was tripoding in severe respiratory distress. They attempted the patient patient on CPAP but he would not tolerate it. They placed patient on supplemental oxygen which helped him mildly. They stated that the patient was f ound to be in a complete heart block and they started externally pacing him. Patient reported that after he was being externally paced he started feeling better. Patient reporting no chest pain at this time. Home Medications Medication Instructions Recorded Confirmed Type atorvastatin 40 mg tablet 40 mg PO QPM 09/18/19 11/13/22 History isosorbide mononitrate 60 mg 60 mg PO BID 09/18/19 11/13/22 History tablet,extended release 24 hr labetalol 200 mg tablet 200 mg PO TID 09/18/19 11/13/22 History tamsulosin 0.4 mg capsule 0.4 mg PO QPM 09/18/19 11/13/22 History aspirin 81 mg tablet,delayed 81 mg PO BID 03/02/22 11/13/22 History release (Ecotrin Low Strength) lisinopril 20 1 tab PO BID 03/02/22 11/13/22 History mg-hydrochlorothiazide 12.5 mg tablet calcium carbonate 750 1 tab PO DIRECTED PRN 11/13/22 11/13/22 History mg-simethicone 80 mg chewable HEARTBURN/GAS tablet ([place] Heartburn-Gas) Allergies Allergy/AdvReac Type Severity Reaction Status Date / Time No Known Allergies Allergy OTHER Verified 11/13/22 22:29 Past Med/Surg History Medical History Bifascicular block RBBB/LAFB -> pt unaware. follows with [facility] (CRYSTAL Duarte) BPH (benign prostatic hyperplasia) CAD (coronary artery disease) NSTEMI 2009 with acute CHF. --- pt denies any history of heart attack. Recent myocardial perfusion scan + for ischemia. No cath. Pt is medically managed. Cardiomyopathy 2009 echo with acute CHF showed EF 20-25% Most recent stress test showed EF WNL. Hyperlipidemia Hypertension Morbid obesity Sleep apnea cpap, "70% compliant" Surgical History H/O colonoscopy H/O tooth extraction History of cardiac cath "for cardiac clearance" negative, no stents. 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 Feels Safe at Home: Yes Assistive Devices: CPAP, Glasses and Hearing Aid - Bilateral Physical Exam Vital Signs Vital Signs - 24 hr 11/13/22 22:21 11/13/22 22:35 11/13/22 22:35 Temperature 36.4 C L Temperature Source Temporal Artery Scan Pulse Rate 39 L 43 L Respiratory Rate 28 H Respiratory Effort / Characteristics SOB on Exertion Labored Respiratory Depth Shallow Blood Pressure 214/89 H Blood Pressure Mean 130 Pulse Oximetry 88 L Oxygen Delivery Method Non-rebreather Fraction of Inspired Oxygen Sepsis Recent Fever Within 48 Hours No Sepsis New/Unexplained Change in Mental Status No Sepsis Action Taken by Nursing No Action Required 11/13/22 22:30 Temperature Temperature Source Pulse Rate Respiratory Rate 18 Respiratory Effort / Characteristics Respiratory Depth Blood Pressure Blood Pressure Mean Pulse Oximetry Oxygen Delivery Method Fraction of Inspired Oxygen 100 Sepsis Recent Fever Within 48 Hours Sepsis New/Unexplained Change in Mental Status Sepsis Action Taken by Nursing Physical Exam GENERAL: Extreme distress. HENT: Exam performed. - Head: Normocephalic and atraumatic. NECK: No JVD CV: Bradycardic rate, irregular rhythm, normal heart sounds and intact distal pulses. Palpable radial pulses bue. PULM/CHEST: Tachypneic. In respiratory distress. Rhonchi bilaterally. ABD: The abdomen is soft and obese. SKIN: Diaphoretic. Procedures Intubation sedative: Etomidate Mg Given: 20 paralytic: Rocuronium Mg Given: 150 Laryngoscope: other (glidescope) ET Tube Size: 7.5 ET Tube Uncuffed: Yes Tube Secured Depth (cm): 25 Tube Secured Location: teeth Tube Placement Confirmation: visualized tube passing through cords, equal breath sounds bilaterally, no breath sounds over epigastrium and confirmation by capnometry Patient Tolerated Procedure: well Intubation Complications: none Course Course 222: The patient was evaluated in room B1. A complete history and physical exam was performed Cardiac monitoring: An order was placed for continuous cardiac monitoring. The monitor shows a rate of 40 with complete heart block rhythm interpreted by me On arrival the patient is diaphoretic and in severe respiratory distress. Decis ion was made to intubate the patient. See procedure note. Heart alert was called prior to patient's arrival. After the patient was intubated the patient was placed on transcutaneous pacing again for his complete heart block. Atropine 0.5 mg IV push was given to the patient. Patient was hypertensive on arrival. Chest x-ray reviewed by me showed an ETT approximately 3 cm above the marlene no pneumothorax cardiomegaly was noted. Dr. Rodriguez interventional cardiology presented to bedside. [id number]-[id number] ultrasound performed by me showed no pericardial effusion Dr. Rodriguez also viewed the ultrasound images live and stated there appears to be no large pericardial effusion the head good cardiac squeeze on the patient. Dr. Rodriguez stated that since the patient's blood pressure is not low we can stop the transcutaneous pacing, transcutaneous pacing was stopped. Calcium gluconate was ordered in the case of any potential hyperkalemia. I-STAT showed a normal potassium. Dr. Rodriguez recommends Lasix 40 mg IV push and states he will take the patient to the Patient Support Tech for coronary catheterization and possible transvenous pacemaker placement. Administered Medications Fentanyl Citrate (Fentanyl Bolus From Bag) 50 mcg IV Q60M PRN PRN Reason: Pain or Agitation Stop: 11/28/22 00:37 Last Admin: 11/14/22 01:55 Dose: 50 mcg Documented By: LUIS ALFREDO Co-signed By: OMAYRA Admin: 11/14/22 00:54 Dose: 50 mcg Documented By: LUIS ALFREDO Co-signed By: RAKESH Magnesium Sulfate/Dextrose (Magnesium Sulfate / D5w) 1 gm in 100 mls @ 50 mls/hr IV Q2H [facility] Stop: 11/14/22 05:29 Last Admin: 11/14/22 01:15 Dose: 50 mls/hr Documented By: LUIS ALFREDO Nitroglycerin/Dextrose (Nitroglycerin/D5w 100 Mcg/Ml) 250 mls @ 0 mls/hr IV .Q 0M CARMEL; Protocol Stop: 12/14/22 00:14 Last Titration: 11/14/22 00:40 Dose: 0 mcg/min, 0 mls/hr Documented By: Titration: 11/14/22 00:20 Dose: 20 mcg/min, 12 mls/hr Documented By: Admin: 11/14/22 00:15 Dose: 30 mcg/min, 18 mls/hr Documented By: LUIS ALFREDO Fentanyl Citrate (Fentanyl Citrate) 2,500 mcg in 250 mls @ 10 mls/hr IV .Q25H CARMEL; Protocol Stop: 11/28/22 00:44 Last Titration: 11/14/22 01:15 Dose: 100 mcg/hr, 10 mls/hr Documented By: LUIS ALFREDO Co-signed By: OMAYRA Admin: 11/14/22 00:45 Dose: 25 mcg/hr, 2.5 mls/hr Documented By: DARINELP Co-signed By: RAKESH Propofol (Diprivan) 1,000 mg in 100 mls @ 9.468 mls/hr IV .[id number] CARMEL; Protocol Stop: 11/17/22 00:44 Last Titration: 11/14/22 00:45 Dose: 10 mcg/kg/min, 9.5 mls/hr Documented By: Titration: 11/14/22 00:30 Dose: 0 mcg/kg/min, 0 mls/hr Documented By: Admin: 11/14/22 00:15 Dose: 50 mcg/kg/min, 47.3 mls/hr Documented By: DARINELP Co-signed By: RAKESH Norepinephrine Bitartrate (Levophed/D5w) 4 mg in 250 mls @ 29.775 mls/hr IV .Q8H24M CARMEL; Protocol Stop: 12/14/22 01:29 Last Admin: 11/14/22 01:44 Dose: 0.05 mcg/kg/min, 29.8 mls/hr Documented By: LUIS ALFREDO Co-signed By: OMAYRA Propofol (Propofol Bolus From Bag) 20 mg IV Q5M PRN PRN Reason: Sedation Stop: 11/17/22 00:39 Last Admin: 11/14/22 00:45 Dose: 20 mg Documented By: LUIS ALFREDO Co-signed By: RAKESH Discontinued Medications Calcium Gluconate (Calcium Gluconate 1000 Mg/60 Ml Nss) Confirm Administered Dose 1,000 mg IV .STK-MED ONE Stop: 11/13/22 22:39 Last Admin: 11/14/22 01:05 Dose: Not Given Documented By: LUIS ALFREDO Fentanyl Citrate (Fentanyl Citrate 100 Mcg/2 Ml Vial) Confirm Administered Dose 100 mcg .ROUTE .STK-MED ONE Stop: 11/13/22 22:39 Last Admin: 11/13/22 23:40 Dose: 100 mcg Documented By: KAYLIE Fentanyl Citrate (Fentanyl Citrate 100 Mcg/2 Ml Vial) Confirm Administered Dose 100 mcg .ROUTE .STK-MED ONE Stop: 11/14/22 00:01 Last Admin: 11/14/22 00:07 Dose: 100 mcg Documented By: REINA Fentanyl Citrate (Fentanyl Citrate 2,500 Mcg/250 Ml Bag) Confirm Administered Dose 2,500 mcg IV .STK-MED ONE Stop: 11/14/22 00:40 Last Admin: 11/14/22 01:09 Dose: Not Given Documented By: LUIS ALFREDO Furosemide (Furosemide 40 Mg/4 Ml Vial) Confirm Administered Dose 40 mg IV .STK- MED ONE Stop: 11/13/22 22:51 Last Admin: 11/14/22 00:06 Dose: 40 mg Documented By: REINA Furosemide (Furosemide 40 Mg/4 Ml Vial) Confirm Administered Dose 40 mg IV .STK- MED ONE Stop: 11/13/22 23:51 Last Admin: 11/14/22 01:05 Dose: Not Given Documented By: LUIS ALFREDO Heparin Sodium (Porcine) (Heparin (Porcine) 1000 Unit/Ml 10 Ml (Patient Support Tech Use O nly)) Confirm Administered Dose 10,000 units .ROUTE .STK-MED ONE Stop: 11/13/22 22:38 Last Admin: 11/13/22 23:36 Dose: 5,000 units Documented By: KAYLIE Heparin Sodium/Sodium Chloride (Heparin In Nss Infusion 1000 Unit/500 Ml (2 U/Ml) Bag) Confirm Administered Dose 3,000 units IV .STK-MED ONE Stop: 11/13/22 22:39 Last Admin: 11/14/22 01:05 Dose: Not Given Documented By: LUIS ALFREDO Midazolam HCl (Midazolam Hcl 1 Mg/Ml 2ml Vial) Confirm Administered Dose 2 mg .ROUTE .STK-MED ONE Stop: 11/13/22 22:38 Last Admin: 11/14/22 01:04 Dose: Not Given Documented By: LUIS ALFREDO Midazolam HCl (Midazolam Hcl 1 Mg/Ml 2ml Vial) Confirm Administered Dose 4 mg .ROUTE .STK-MED ONE Stop: 11/14/22 00:17 Last Admin: 11/14/22 01:09 Dose: Not Given Documented By: LUIS ALFREDO Midazolam HCl (Midazolam Hcl 1 Mg/Ml 2ml Vial) 4 mg IV NOW STA Stop: 11/14/22 00:40 Last Admin: 11/14/22 00:53 Dose: 4 mg Documented By: LUIS ALFREDO Miscellaneous (Rapid Sequence Induction Bag) Confirm Administered Dose 1 each .ROUTE .STK-MED ONE Stop: 11/13/22 22:26 Last Admin: 11/13/22 22:58 Dose: 1 each Documented By: YINKA Nicardipine HCl (Nicardipine Hcl Inj 2.5 Mg/Ml 10 Ml Amp) Confirm Administered Dose 25 mg .ROUTE .STK-MED ONE Stop: 11/13/22 22:39 Last Admin: 11/13/22 23:37 Dose: 25 mg Documented By: COLLEEN Nitroglycerin/Dextrose (Nitroglycerin/D5w 100mcg/Ml 20ml Syr) Confirm Administered Dose 2,000 mcg .ROUTE .STK-MED ONE Stop: 11/13/22 22:39 Last Admin: 11/13/22 23:37 Dose: 2,000 mcg Documented By: COLLEEN Nitroglycerin/Dextrose (Nitroglycerin/D5w 100 Mcg/Ml Btl) Confirm Administered Dose 25 mg .ROUTE .STK-MED ONE Stop: 11/13/22 23:20 Last Admin: 11/13/22 23:38 Dose: 30 mcg Documented By: KAYLIE Co-signed By: GLENN Norepinephrine Bitartrate (Norepinephrine/D5w 4 Mg/250 Ml) Confirm Administered Dose 4 mg IV .STK-MED ONE Stop: 11/14/22 01:15 Last Admin: 11/14/22 01:45 Dose: Not Given Documented By: LUIS ALFREDO Propofol (Propofol Iv Emulsion 10 Mg/Ml 100 Ml Vial) Confirm Administered Dose 1,000 mg IV .STK-MED ONE Stop: 11/13/22 22:53 Last Admin: 11/13/22 23:37 Dose: 1,000 mg Documented By: COLLEEN Co-signed By: GLENN Propofol (Propofol Iv Emulsion 10 Mg/Ml 100 Ml Vial) Confirm Administered Dose 1,000 mg IV .STK-MED ONE Stop: 11/14/22 00:18 Last Admin: 11/14/22 01:09 Dose: Not Given Documented By: LUIS ALFREDO Critical Care Time Critical Care Time: Yes Total Critical Care Time: 38 I have personally spent greater than 38 minutes of critical care time in the direct management of this patient. This includes bedside care, interpretation of diagnostic studies, and testing, discussion with consultants, patient, and family members, and other required patient management activities. This 38 minutes is in excess of all separately billable procedures. Medical Decision Making Laboratory Data Attestation: I reviewed the patient's lab results. 11/13/22 22:31 11/13/22 22:31 Lab Results 11/13/22 11/13/22 11/13/22 Range/Units 22:31 22:31 22:31 WBC 14.01 H (4.8-10.8) K/ul RBC 4.88 (4.70-6.10) M/uL Hgb 16.1 (14.0-18.0) g/dl Hct 45.3 (42.0-52.0) % MCV 92.8 (80.0-100.0) fL MCH 33.0 (25.0-34.0) pg MCHC 35.5 (32.0-36.0) g/dL RDW Std Deviation 44.0 (36.4-46.3) fL RDW Coeff of Supa 12.9 (11.5-14.5) % Plt Count 199 (130-400) K/uL MPV 12.1 (9.4-12.4) fL Immature Gran % (Auto) 0.3 % Neut % (Auto) 78.1 % Lymph % (Auto) 8.9 % Mclennan % (Auto) 11.8 % Eos % (Auto) 0.4 % Baso % (Auto) 0.5 % Neut # (Auto) 10.96 H (1.40-6.50) K/uL Lymph # (Auto) 1.24 (1.2-3.4) K/uL Mclennan # (Auto) 1.65 H (0.11-0.59) K/uL Eos # (Auto) 0.05 (0-0.50) K/uL Baso # (Auto) 0.07 (0-0.2) K/uL Immature Gran # (Auto) 0.04 (0.01-0.20) K/uL PT (9.0-12.0) Seconds INR (0.9-1.1) APTT (21.0-31.0) Seconds PTT Ratio Sodium 139 (136-145) mmol/L Potassium 4.1 (3.5-5.1) mmol/L Chloride 102 (98-107) mmol/L Carbon Dioxide 28 (21-32) mmol/L Anion Gap 9 (3-11) BUN 19 (6-23) mg/dl Creatinine 1.09 (0.6-1.4) mg/dl Est Cr Clr Drug Dosing 106.2 ml/min Est GFR ( Amer) 82.7 ml/min Est GFR (Non-Af Amer) 71.4 ml/min BUN/Creatinine Ratio 17.4 (10-20) Glucose 160 H (70-99(Fasting)) mg/dl Calcium 10.0 (8.5-10.1) mg/dl Magnesium 1.5 L (1.7-2.4) mg/dl Total Bilirubin 1.0 (0.2-1.0) mg/dl Direct Bilirubin 0.2 (0-0.2) mg/dl AST 31 (13-39) U/L ALT 28 (7-52) U/L Alkaline Phosphatase 57 (34-104) U/L Troponin I High Sens 47.7 H (0-20) pg/ml B-Natriuretic Peptide 558 H (0-100) pg/ml Total Protein 7.5 (6.0-8.3) gm/dl Albumin 4.3 (3.4-5.0) gm/dl Lipase 40 (11-82) U/L 11/13/22 Range/Units 22:31 WBC (4.8-10.8) K/ul RBC (4.70-6.10) M/uL Hgb (14.0-18.0) g/dl Hct (42.0-52.0) % MCV (80.0-100.0) fL MCH (25.0-34.0) pg MCHC (32.0-36.0) g/dL RDW Std Deviation (36.4-46.3) fL RDW Coeff of Supa (11.5-14.5) % Plt Count (130-400) K/uL MPV (9.4-12.4) fL Immature Gran % (Auto) % Neut % (Auto) % Lymph % (Auto) % Mclennan % (Auto) % Eos % (Auto) % Baso % (Auto) % Neut # (Auto) (1.40-6.50) K/uL Lymph # (Auto) (1.2-3.4) K/uL Mclennan # (Auto) (0.11-0.59) K/uL Eos # (Auto) (0-0.50) K/uL Baso # (Auto) (0-0.2) K/uL Immature Gran # (Auto) (0.01-0.20) K/uL PT 10.9 (9.0-12.0) Seconds INR 1.0 (0.9-1.1) APTT 24.8 (21.0-31.0) Seconds PTT Ratio 0.9 Sodium (136-145) mmol/L Potassium (3.5-5.1) mmol/L Chloride (98-107) mmol/L Carbon Dioxide (21-32) mmol/L Anion Gap (3-11) BUN (6-23) mg/dl Creatinine (0.6-1.4) mg/dl Est Cr Clr Drug Dosing ml/min Est GFR ( Amer) ml/min Est GFR (Non-Af Amer) ml/min BUN/Creatinine Ratio (10-20) Glucose (70-99(Fasting)) mg/dl Calcium (8.5-10.1) mg/dl Magnesium (1.7-2.4) mg/dl Total Bilirubin (0.2-1.0) mg/dl Direct Bilirubin (0-0.2) mg/dl AST (13-39) U/L ALT (7-52) U/L Alkaline Phosphatase (34-104) U/L Troponin I High Sens (0-20) pg/ml B-Natriuretic Peptide (0-100) pg/ml Total Protein (6.0-8.3) gm/dl Albumin (3.4-5.0) gm/dl Lipase (11-82) U/L Imaging Data Attestation: I personally reviewed and interpreted this imaging study as follows: My Impression: Chest x-ray reviewed by me showed an ETT approximately 3 cm above the marlene no pneumothorax cardiomegaly was noted. Radiologist's Impression: Chest X-Ray 11/13/22 22:26 XR chest 1V portable HISTORY: Atypical chest pain. Shortness of breath. COMPARISON: Chest 06/22/2017. FINDINGS: The endotracheal tube terminates approximately 4.3 cm from the marlene. No pneumothorax. No pleural effusions. The heart is mildly enlarged. There is interstitial/vascular thickening most pronounced on the right consistent with mild asymmetric pulmonary edema. No focal lung consolidations identified. IMPRESSION: 1. No pneumothorax. 2. The endotracheal tube terminates 4.3 cm from the marlene. 3. Cardiomegaly with mild asymmetric pulmonary edema. ACT 112: Negative or not required by law. Electronically signed by: Naeem Guthrie M.D. 11/13/2022 11:38 PM MDM Narrative The patient was evaluated in room B1. A complete history and physical exam was performed Cardiac monitoring: An order was placed for continuous cardiac monitoring. The monitor shows a rate of 40 with complete heart block rhythm interpreted by me On arrival the patient is diaphoretic and in severe respiratory distress. Decision was made to intubate the patient. See procedure note. Heart alert was called prior to patient's arrival. After the patient was intubated the patient was placed on transcutaneous pacing again for his complete heart block. Atropine 0.5 mg IV push was given to the patient. Patient was hypertensive on arrival. Chest x-ray reviewed by me showed an ETT approximately 3 cm above the marlene no pneumothorax cardiomegaly was noted. Dr. Rodriguez interventional cardiology presented to bedside. Umgzu-nl-laco ultrasound performed by showed no pericardial effusion Dr. Rodriguez also viewed the ultrasound images live and stated there appears to be no large pericardial effusion the head good c ardiac squeeze on the patient. Dr. Rodriguez stated that since the patient's blood pressure is not low we can stop the transcutaneous pacing, transcutaneous pacing was stopped. Calcium gluconate was ordered in the case of any potential hyperkalemia. I-STAT showed a normal potassium. Dr. Rodriguez recommends Lasix 40 mg IV push and states he will take the patient to the Patient Support Tech for coronary catheterization and possible transvenous pacemaker placement. Impression & Plan Complete heart block Discharge Plan Visit Data Chief Complaint: Heart Alert ED Provider: Luiz Hernandez Discharge Problem: Complete heart block Patient Disposition: Admitted As Inpatient Discharge Instructions Interventions: ED Discharge Assessment Last Done: 11/13/22 22:59
[2022-11-14 02:45] LABS: iSTAT Allen Test Pass; iSTAT Arterial Blood Gas HCO3 29 meg/L (19-24); iSTAT Arterial Blood Gas pCO2 51 mmHg (35-46); iSTAT Arterial Blood Gas pH 7.36 (7.35-7.45); iSTAT Arterial Blood Gas pO2 94 mmHg (80-95); iSTAT Carbon Dioxide 30 mmol/L (24-31); iSTAT FiO2 80 %; iSTAT Site L Radial
[2022-11-14 03:05] LABS: Procalcitonin < 0.05 ng/ml (0-0.5)
[2022-11-14 03:13] LABS: Lyme Ab IgG w/WB Rflx Negative (Negative); Lyme Ab IgM w/WB Rflx Negative (Negative)
[2022-11-14] MEDS: ALBUT/IPRATROP 3MG/0.5MG NEB 3 ML VIAL NEB SCH ×4 (04:26→19:31)
[2022-11-14 04:52] LABS: iSTAT Allen Test Pass; iSTAT Arterial Blood Gas HCO3 28 meg/L (19-24); iSTAT Arterial Blood Gas pCO2 52 mmHg (35-46); iSTAT Arterial Blood Gas pH 7.34 (7.35-7.45); iSTAT Arterial Blood Gas pO2 75 mmHg (80-95); iSTAT Carbon Dioxide 30 mmol/L (24-31); iSTAT FiO2 60 %; iSTAT Site L Radial
[2022-11-14] MEDS: ICU Protocol for HYPERglycemia SCH ×4 (05:20→21:25)
[2022-11-14 06:07] LABS: Albumin Level 3.9 gm/dl (3.4-5.0); BUN Creatinine Ratio 16.1 (10-20); Bilirubin Direct 0.3 mg/dl (0-0.2); Bilirubin,Total 1.1 mg/dl (0.2-1.0); Calcium 9.5 mg/dl (8.5-10.1); Creatinine Clr Calc Pharmacy 84.8 ml/min; Est GFR (African American) 62.7 ml/min; Est GFR (Non-African American) 54.1 ml/min; Magnesium 2.2 mg/dl (1.7-2.4); Phosphorus 4.2 mg/dl (2.5-4.9); Potassium 3.9 mmol/L (3.5-5.1); Total Protein 6.8 gm/dl (6.0-8.3)
[2022-11-14 06:27] LABS: Ferritin 152.9 ng/ml (8-388)
[2022-11-14] MEDS ORDERED: POTASSIUM CHLORIDE / WTR 10 MEQ/100 ML PLCT IV ONE (06:28)
[2022-11-14 06:30] LABS: Basophils # (auto) 0.06 K/uL (0-0.2); Basophils % (auto) 0.4 %; Eosinophils # (auto) 0.02 K/uL (0-0.50); Eosinophils % (auto) 0.1 %; Hematocrit (blood only) 44.3 % (42.0-52.0); Hemoglobin 15.1 g/dl (14.0-18.0); Immature Granulocytes # (auto) 0.05 K/uL (0.01-0.20); Immature Granulocytes % (auto) 0.3 %; Lymphocytes # (auto) 1.14 K/uL (1.2-3.4); Lymphocytes % (auto) 7.4 %; Mean Corpuscular Hemoglobin 32.4 pg (25.0-34.0); Mean Corpuscular Hgb Conc 34.1 g/dL (32.0-36.0); Mean Corpuscular Volume 95.1 fL (80.0-100.0); Mean Platelet Volume 11.7 fL (9.4-12.4); Monocytes # (auto) 1.88 K/uL (0.11-0.59); Monocytes % (auto) 12.1 %; Neutrophils # (auto) 12.35 K/uL (1.40-6.50); Neutrophils % (auto) 79.7 %; Platelet Count 202 K/uL (130-400); RDW Coefficient of Variation 13.2 % (11.5-14.5); RDW Standard Deviation 45.9 fL (36.4-46.3); Red Blood Count 4.66 M/uL (4.70-6.10)
[2022-11-14] MEDS: ATORVASTATIN 40 MG TAB PO SCH (07:27)
[2022-11-14] MEDS: ASPIRIN 81 MG CHEW PO SCH (07:27)
[2022-11-14] MEDS: TAMSULOSIN HCL 0.4 MG CAP PO SCH (07:27)
--- NOTE | 2022-11-14 08:09 | XRay Report ---
XR chest 1V portable HISTORY: Respiratory failure. COMPARISON: Chest 11/13/2022. FINDINGS: Endotracheal tube terminates 5.4 cm from the marlene. No pneumothorax. The cardiac silhouett e remains mildly enlarged. Mild asymmetric pulmonary edema has improved. No new focal lung consolidat ions to suggest a pneumonia. IMPRESSION: 1. Endotracheal tube terminates 5.4 cm from the marlene. 2. Interval improvement in the mild asymmetric pulmonary edema. ACT 112: Negative or not required by law. Electronically signed by: Naeem Guthrie M.D. 11/14/2022 8:08 AM
[2022-11-14] MEDS ORDERED: FUROSEMIDE 40 MG/4 ML VIAL IV STA (08:12)
[2022-11-14] MEDS ORDERED: HEPARIN SOD 5,000 UNIT/0.5 ML VIAL SQ SCH (09:00)
[2022-11-14] MEDS ORDERED: ENOXAPARIN INJ 40 MG/0.4 ML SYR SQ SCH (09:00)
[2022-11-14] MEDS ORDERED: FAMOTIDINE 20 MG in SYRINGE 3 ML IV SCH (09:00)
--- NOTE | 2022-11-14 09:50 | Communication Note ---
Date of Service: November 14, 2022 Patient seen and examined. Discussed on multidisciplinary rounds and with critical care AMY as well as cardiology at bedside. The patient is currently undergoing SBT. His oxygenation is significantly improved with diuresis and positive airway pressure. He remains paced. He will likely require evaluation by EP for consideration of permanent pacemaker versus AICD versus biventricular pacer. We will continue attempts at diuresis. He will be extubated to BiPAP. We will try and obtain his home settings. If unsuccessful, empiric bilevel will be required. Optimization of the patient's underlying heart failure per cardiology. If hemodynamics allow, reinstitution of CALIXTO inhibitor and/or beta-josias may be appropriate especially once he is conduction issues are addressed. An additional 35 minutes of critical care time was spent in evaluation management stabilization this patient including coordinating with respiratory therapy, bedside critical care nurse, on multidisciplinary rounds and with ruby on rails software developer. The patient is critically ill with significant possibility of clinical deterioration and or . Coding Level of Care Code 78002 CRITICAL CARE EA ADD 30M
[2022-11-14 09:53] LABS: Estimated Average Glucose 128 mg/dl; Hemoglobin A1C 6.1 % (4.5-5.6)
[2022-11-14] MEDS ORDERED: ROCURONIUM BROMIDE 10 MG/ML 5 ML VIAL IV ONE ×2 (11:15)
[2022-11-14] MEDS ORDERED: ETOMIDATE 2 MG/ML 20 ML VIAL IV ONE (11:15)
--- NOTE | 2022-11-14 12:59 | Hospitalist Progress Note ---
Date of Service November 14, 2022 Assessment & Plan (1) Acute respiratory failure with hypoxia: Plan: Likely secondary to acute on chronic systolic CHF Currently intubated, managed by critical care. Anticipate extubation soon Please see below for management of CHF (2) Acute on chronic systolic congestive heart failure: Plan: Reported EF approximately 18% in the past. No echocardiogram report on file. TTE done today, awaiting official report. Spoke to technician inventory specialist who stated that the echocardiogram showed an ejection fraction of 35% (official report pending) Most likely triggered by bradycardia and complete heart block. Please see management for complete heart block below Was diuresed with 40 mg of IV Lasix, with good clinical and diuretic response Lasix discontinued. Will be dosed on a daily basis. Renal function tolerating Underwent cardiac catheterization 11/14 that showed clean coronaries Present on Admission?: Yes (3) Complete heart block: Plan: Currently temporarily paced Will most likely need permanent pacemaker/AICD prior to discharge EP cardiology will be consulted by technician inventory specialist No beta-josias for now Continue monitoring on telemetry Lyme's disease negative. TSH normal Present on Admission?: Yes (4) Nonischemic cardiomyopathy: Plan: Patient had a cardiac catheterization earlier this morning that showed normal coronaries Echocardiogram completed, official report pending Diuresis as needed Will need guideline directed medical therapy once more stable Present on Admission?: Yes (5) HTN (hypertension): Plan: Hold all antihypertensive agents as blood pressure is still soft Now off of pressors We will diurese as needed Present on Admission?: Yes (6) Hyperlipidemia: Plan: Continue statin Present on Admission?: Yes (7) Sleep apnea: Plan: Currently intubated Present on Admission?: Yes Admission and Anticipated Discharge Date Admission Date: November 14, 2022 Subjective Saw the patient earlier this morning. He was still intubated. He was accompanied by the nurse, respiratory therapist, the technician inventory specialist, critical care resident. There were working on extubating him. The patient was able to nod and shake his head in response to simple questions. Review of Systems Review of Systems: Unobtainable due to endotracheal tube Physical Exam Physical Exam: General: Intubated Heart: S1, S2/regular rate and rhythm, no murmur rubs or gallops. External pacer wires in place. Lungs: Bibasilar crackles. Normal effort Abdomen: Soft/nontender/nondistended. No hepatosplenomegaly Extremities: No clubbing/cyanosis. No edema Behavior: Unable to assess as intubated Results & Data Results & Data ([facility]) Vital Signs (Past 12 Hours) Vital Signs Temp Pulse Pulse Resp BP Pulse Ox O2 Del Method 11/14/22 12:00 60 37 H 144/59 H 92 Oxymask 11/14/22 12:00 37.6 C H 11/14/22 11:16 82 17 91 11/14/22 11:16 114/56 L 11/14/22 11:00 60 32 H 115/49 L 92 Oxymask 11/14/22 10:17 105/63 11/14/22 10:17 60 35 H 91 11/14/22 10:10 134/54 L 11/14/22 10:10 63 25 H 97 11/14/22 10:01 60 31 H 88 L 11/14/22 10:01 177/60 H 11/14/22 10:00 60 34 H 88 L 11/14/22 09:51 37.9 C H 62 33 H 11/14/22 09:51 161/80 H 11/14/22 09:46 37.9 C H 61 26 H 85 L 11/14/22 09:46 138/48 L 11/14/22 09:15 137/88 11/14/22 09:15 37.6 C H 60 30 H 94 11/14/22 09:00 37.6 C H 40 L 30 H 92 11/14/22 08:59 37.6 C H 60 30 H 92 11/14/22 08:59 138/78 11/14/22 08:57 156/60 H 11/14/22 08:57 37.6 C H 43 L 30 H 92 11/14/22 08:45 37.5 C 60 30 H 92 11/14/22 08:45 134/83 11/14/22 08:45 134/83 11/14/22 08:31 137/58 L 11/14/22 08:31 37.4 C 59 L 30 H 93 11/14/22 09:57 60 29 H 94 11/14/22 08:05 60 30 H 96 11/14/22 08:15 37.3 C 60 26 H 148/77 H 95 Mechanical Vent 11/14/22 08:00 37.3 C 60 26 H 158/69 H 96 Mechanical Vent 11/14/22 08:00 11/14/22 07:45 37.2 C 60 26 H 122/70 96 Mechanical Vent 11/14/22 07:42 Mechanical Vent 11/14/22 07:38 37.2 C 59 L 30 H 87/40 L 95 11/14/22 07:34 37.2 C 60 30 H 69/52 L 96 11/14/22 07:30 37.1 C 60 26 H 70/44 L 94 11/14/22 07:15 37.1 C 60 30 H 91/54 L 93 Mechanical Vent 11/14/22 07:00 37.0 C 60 30 H 98/45 L 96 Mechanical Vent 11/14/22 06:45 36.9 C 60 30 H 113/67 98 Mechanical Vent 11/14/22 06:20 36.9 C 60 30 H 97 11/14/22 06:16 36.9 C 61 30 H 97 11/14/22 06:16 107/62 11/14/22 06:10 36.9 C 59 L 30 H 97 11/14/22 06:01 36.8 C 60 30 H 97 11/14/22 06:01 149/70 H 11/14/22 06:00 36.8 C 65 30 H 97 11/14/22 05:50 36.8 C 60 30 H 97 11/14/22 05:46 36.8 C 65 30 H 97 11/14/22 05:46 138/82 11/14/22 05:40 36.8 C 65 30 H 97 11/14/22 05:31 154/69 H 11/14/22 05:31 36.8 C 60 30 H 96 11/14/22 05:30 36.8 C 59 L 30 H 96 11/14/22 05:20 36.9 C 73 30 H 95 11/14/22 05:16 136/71 11/14/22 05:16 36.9 C 61 30 H 95 11/14/22 05:10 36.9 C 67 30 H 95 11/14/22 05:00 36.9 C 65 30 H 96 11/14/22 05:00 106/68 11/14/22 04:50 36.9 C 60 30 H 96 11/14/22 04:45 117/59 L 11/14/22 04:45 36.9 C 65 30 H 96 11/14/22 04:45 117/59 L 11/14/22 04:50 30 H 11/14/22 04:40 36.9 C 60 30 H 96 Mechanical Vent 11/14/22 04:31 36.9 C 72 30 H 95 11/14/22 04:31 112/58 L 11/14/22 04:30 36.9 C 60 30 H 95 11/14/22 04:20 36.8 C 58 L 30 H 95 11/14/22 04:16 36.7 C 60 30 H 95 11/14/22 04:16 138/76 11/14/22 04:10 36.7 C 60 30 H 97 11/14/22 04:00 36.8 C 60 26 H 98 11/14/22 04:00 134/82 11/14/22 04:00 134/82 11/14/22 03:50 36.9 C 60 30 H 97 11/14/22 03:45 36.8 C 60 26 H 97 11/14/22 03:45 122/76 11/14/22 03:45 122/76 11/14/22 03:40 36.8 C 60 30 H 97 11/14/22 03:30 36.8 C 60 24 97 11/14/22 03:30 134/80 11/14/22 03:20 36.8 C 60 30 H 96 11/14/22 03:20 127/81 11/14/22 03:12 36.8 C 60 30 H 96 11/14/22 03:12 149/81 H 11/14/22 03:10 36.8 C 60 30 H 97 11/14/22 04:00 11/14/22 04:26 66 30 H 93 Mechanical Vent 11/14/22 02:40 30 L 30 H 95 11/14/22 03:00 36.8 C 60 30 H 96 11/14/22 03:00 121/77 11/14/22 02:50 36.8 C 60 30 H 95 11/14/22 02:50 119/74 11/14/22 02:40 36.8 C 60 30 H 95 Mechanical Vent 11/14/22 02:40 126/72 11/14/22 02:40 126/72 11/14/22 02:31 36.7 C 60 30 H 97 11/14/22 02:31 133/78 11/14/22 02:30 36.7 C 60 30 H 97 11/14/22 02:20 36.7 C 60 30 H 97 11/14/22 02:20 131/75 11/14/22 02:10 36.7 C 60 30 H 97 11/14/22 02:10 131/69 11/14/22 02:00 36.7 C 62 30 H 96 11/14/22 02:00 113/67 11/14/22 01:50 36.7 C 61 30 H 95 11/14/22 01:50 110/65 11/14/22 01:45 115/65 11/14/22 01:45 36.7 C 60 30 H 95 11/14/22 01:40 103/61 11/14/22 01:40 36.7 C 59 L 30 H 95 11/14/22 01:36 36.7 C 60 30 H 95 Mechanical Vent 11/14/22 01:36 100/62 11/14/22 01:31 36.7 C 60 30 H 95 11/14/22 01:31 111/56 L 11/14/22 01:30 36.7 C 60 30 H 96 11/14/22 01:26 36.7 C 60 30 H 96 11/14/22 01:26 124/55 L 11/14/22 01:21 36.7 C 60 33 H 92 11/14/22 01:21 122/63 11/14/22 01:20 36.7 C 60 23 93 11/14/22 01:16 36.7 C 64 24 93 11/14/22 01:16 74/19 L 11/14/22 01:13 60/16 L 11/14/22 01:13 36.7 C 60 30 H 91 11/14/22 01:10 36.7 C 60 30 H 91 11/14/22 01:10 68/36 L 11/14/22 01:06 36.7 C 60 30 H 91 11/14/22 01:06 72/39 L 11/14/22 01:05 36.7 C 60 26 H 92 11/14/22 01:05 65/42 L 11/14/22 01:00 36.8 C 60 30 H 92 11/14/22 01:00 89/55 L 11/14/22 01:38 30 H 11/14/22 01:10 60 22 92 O2 Flow Rate FiO2 11/14/22 12:00 10 11/14/22 12:00 11/14/22 11:16 11/14/22 11:16 11/14/22 11:00 10 11/14/22 10:17 11/14/22 10:17 11/14/22 10:10 11/14/22 10:10 11/14/22 10:01 11/14/22 10:01 11/14/22 10:00 11/14/22 09:51 11/14/22 09:51 11/14/22 09:46 11/14/22 09:46 11/14/22 09:15 11/14/22 09:15 11/14/22 09:00 11/14/22 08:59 11/14/22 08:59 11/14/22 08:57 11/14/22 08:57 11/14/22 08:45 11/14/22 08:45 11/14/22 08:45 11/14/22 08:31 11/14/22 08:31 11/14/22 09:57 40 11/14/22 08:05 50 11/14/22 08:15 50 11/14/22 08:00 50 11/14/22 08:00 50 11/14/22 07:45 50 11/14/22 07:42 50 11/14/22 07:38 11/14/22 07:34 11/14/22 07:30 11/14/22 07:15 50 11/14/22 07:00 50 11/14/22 06:45 50 11/14/22 06:20 11/14/22 06:16 11/14/22 06:16 11/14/22 06:10 11/14/22 06:01 11/14/22 06:01 11/14/22 06:00 11/14/22 05:50 11/14/22 05:46 11/14/22 05:46 11/14/22 05:40 11/14/22 05:31 11/14/22 05:31 11/14/22 05:30 11/14/22 05:20 11/14/22 05:16 11/14/22 05:16 11/14/22 05:10 11/14/22 05:00 11/14/22 05:00 11/14/22 04:50 11/14/22 04:45 11/14/22 04:45 11/14/22 04:45 11/14/22 04:50 60 11/14/22 04:40 60 11/14/22 04:31 11/14/22 04:31 11/14/22 04:30 11/14/22 04:20 11/14/22 04:16 11/14/22 04:16 11/14/22 04:10 11/14/22 04:00 11/14/22 04:00 11/14/22 04:00 11/14/22 03:50 11/14/22 03:45 11/14/22 03:45 11/14/22 03:45 11/14/22 03:40 11/14/22 03:30 11/14/22 03:30 11/14/22 03:20 11/14/22 03:20 11/14/22 03:12 11/14/22 03:12 11/14/22 03:10 11/14/22 04:00 60 11/14/22 04:26 60 11/14/22 02:40 60 11/14/22 03:00 11/14/22 03:00 11/14/22 02:50 11/14/22 02:50 11/14/22 02:40 60 11/14/22 02:40 11/14/22 02:40 11/14/22 02:31 11/14/22 02:31 11/14/22 02:30 11/14/22 02:20 11/14/22 02:20 11/14/22 02:10 11/14/22 02:10 11/14/22 02:00 11/14/22 02:00 11/14/22 01:50 11/14/22 01:50 11/14/22 01:45 11/14/22 01:45 11/14/22 01:40 11/14/22 01:40 11/14/22 01:36 80 11/14/22 01:36 11/14/22 01:31 11/14/22 01:31 11/14/22 01:30 11/14/22 01:26 11/14/22 01:26 11/14/22 01:21 11/14/22 01:21 11/14/22 01:20 11/14/22 01:16 11/14/22 01:16 11/14/22 01:13 11/14/22 01:13 11/14/22 01:10 11/14/22 01:10 11/14/22 01:06 11/14/22 01:06 11/14/22 01:05 11/14/22 01:05 11/14/22 01:00 11/14/22 01:00 11/14/22 01:38 80 11/14/22 01:10 100 Laboratory Results Abnormal lab results 11/13/22 11/13/22 11/13/22 Range/Units 22:31 22:31 22:31 WBC 14.01 H (4.8-10.8) K/ul RBC (4.70-6.10) M/uL Neut # (Auto) 10.96 H (1.40-6.50) K/uL Lymph # (Auto) (1.2-3.4) K/uL [place] # (Auto) 1.65 H (0.11-0.59) K/uL POC pH (7.35-7.45) POC pCO2 (35-46) mmHg POC pO2 (80-95) mmHg POC HCO3 (19-24) arnulfo/L POC Base Excess (-9-1.8) arnulfo/L POC ABG O2 Sat (90-95) % Glucose 160 H (70-99(Fasting)) mg/dl POC Glucose (70-99) mg/dl Hemoglobin A1c (4.5-5.6) % Magnesium 1.5 L (1.7-2.4) mg/dl Total Bilirubin (0.2-1.0) mg/dl Direct Bilirubin (0-0.2) mg/dl Troponin I High Sens 47.7 H (0-20) pg/ml B-Natriuretic Peptide 558 H (0-100) pg/ml 11/14/22 11/14/22 11/14/22 Range/Units 01:26 02:30 03:11 WBC (4.8-10.8) K/ul RBC (4.70-6.10) M/uL Neut # (Auto) (1.40-6.50) K/uL Lymph # (Auto) (1.2-3.4) K/uL [place] # (Auto) (0.11-0.59) K/uL POC pH (7.35-7.45) POC pCO2 51 H (35-46) mmHg POC pO2 (80-95) mmHg POC HCO3 29 H (19-24) arnulfo/L POC Base Excess 3.0 H (-9-1.8) arnulfo/L POC ABG O2 Sat 97.0 H (90-95) % Glucose (70-99(Fasting)) mg/dl POC Glucose 154 H (70-99) mg/dl Hemoglobin A1c (4.5-5.6) % Magnesium (1.7-2.4) mg/dl Total Bilirubin (0.2-1.0) mg/dl Direct Bilirubin (0-0.2) mg/dl Troponin I High Sens 87.2 H* D (0-20) pg/ml B-Natriuretic Peptide (0-100) pg/ml 11/14/22 11/14/22 11/14/22 Range/Units 04:38 05:11 05:23 WBC 15.50 H (4.8-10.8) K/ul RBC 4.66 L (4.70-6.10) M/uL Neut # (Auto) 12.35 H (1.40-6.50) K/uL Lymph # (Auto) 1.14 L (1.2-3.4) K/uL [place] # (Auto) 1.88 H (0.11-0.59) K/uL POC pH 7.34 L (7.35-7.45) POC pCO2 52 H (35-46) mmHg POC pO2 75 L (80-95) mmHg POC HCO3 28 H (19-24) arnulfo/L POC Base Excess 2.0 H (-9-1.8) arnulfo/L POC ABG O2 Sat (90-95) % Glucose (70-99(Fasting)) mg/dl POC Glucose 164 H (70-99) mg/dl Hemoglobin A1c (4.5-5.6) % Magnesium (1.7-2.4) mg/dl Total Bilirubin (0.2-1.0) mg/dl Direct Bilirubin (0-0.2) mg/dl Troponin I High Sens (0-20) pg/ml B-Natriuretic Peptide (0-100) pg/ml 11/14/22 11/14/22 11/14/22 Range/Units 05:23 05:23 09:51 WBC (4.8-10.8) K/ul RBC (4.70-6.10) M/uL Neut # (Auto) (1.40-6.50) K/uL Lymph # (Auto) (1.2-3.4) K/uL [place] # (Auto) (0.11-0.59) K/uL POC pH (7.35-7.45) POC pCO2 (35-46) mmHg POC pO2 (80-95) mmHg POC HCO3 (19-24) arnulfo/L POC Base Excess (-9-1.8) arnulfo/L POC ABG O2 Sat (90-95) % Glucose 150 H (70-99(Fasting)) mg/dl POC Glucose (70-99) mg/dl Hemoglobin A1c 6.1 H (4.5-5.6) % Magnesium (1.7-2.4) mg/dl Total Bilirubin 1.1 H (0.2-1.0) mg/dl Direct Bilirubin 0.3 H (0-0.2) mg/dl Troponin I High Sens 135.5 H* D (0-20) pg/ml B-Natriuretic Peptide (0-100) pg/ml 11/14/22 Range/Units 11:08 WBC (4.8-10.8) K/ul RBC (4.70-6.10) M/uL Neut # (Auto) (1.40-6.50) K/uL Lymph # (Auto) (1.2-3.4) K/uL [place] # (Auto) (0.11-0.59) K/uL POC pH (7.35-7.45) POC pCO2 (35-46) mmHg POC pO2 (80-95) mmHg POC HCO3 (19-24) arnulfo/L POC Base Excess (-9-1.8) arnulfo/L POC ABG O2 Sat (90-95) % Glucose (70-99(Fasting)) mg/dl POC Glucose 132 H (70-99) mg/dl Hemoglobin A1c (4.5-5.6) % Magnesium (1.7-2.4) mg/dl Total Bilirubin (0.2-1.0) mg/dl Direct Bilirubin (0-0.2) mg/dl Troponin I High Sens (0-20) pg/ml B-Natriuretic Peptide (0-100) pg/ml Diagnostic Findings Chest X-Ray 11/13/22 22:26 XR chest 1V portable HISTORY: Atypical chest pain. Shortness of breath. COMPARISON: Chest 06/22/2017. FINDINGS: The endotracheal tube terminates approximately 4.3 cm from the marlene. No pneumothorax. No pleural effusions. The heart is mildly enlarged. There is interstitial/vascular thickening most pronounced on the right consistent with mild asymmetric pulmonary edema. No focal lung consolidations identified. IMPRESSION: 1. No pneumothorax. 2. The endotracheal tube terminates 4.3 cm from the marlene. 3. Cardiomegaly with mild asymmetric pulmonary edema. ACT 112: Negative or not required by law. Electronically signed by: Naeem Guthrie M.D. 11/13/2022 11:38 PM Chest X-Ray 11/14/22 07:00 XR chest 1V portable HISTORY: Respiratory failure. COMPARISON: Chest 11/13/2022. FINDINGS: Endotracheal tube terminates 5.4 cm from the marlene. No pneumothorax. The cardiac silhouette remains mildly enlarged. Mild asymmetric pulmonary edema has improved. No new focal lung consolidations to suggest a pneumonia. IMPRESSION: 1. Endotracheal tube terminates 5.4 cm from the marlene. 2. Interval improvement in the mild asymmetric pulmonary edema. ACT 112: Negative or not required by law. Electronically signed by: Naeem Guthrie M.D. 11/14/2022 8:08 AM PG Care Time/CCT Total # of Minutes Spent Total Time Spent with Patient: I spent 55 minutes in the care of this patient. The time was spent in talking to the patient, nurse, care management team, consultants: Can Technician and document image technician, reviewing the chart, formulating plan and placing the orders accordingly. Coding Level of Care Code 40713 SUB INP/OBS CARE 3/50MIN Diagnoses Acute respiratory failure with hypoxia J96.01 Acute on chronic systolic congestive heart failure I50.23 Complete heart block I44.2 Nonischemic cardiomyopathy I42.8 HTN (hypertension) I10 Hyperlipidemia E78.5 Sleep apnea G47.30 Time Spent (min) 55 Comment Time was spent in talking to the patient, nurse, technician inventory specialist, document image technician
[2022-11-14] MEDS ORDERED: COUGH DROP (SUGAR FREE) LOZ 24 LOZ/1 BOX BUCCAL ONE (13:17)
[2022-11-14] MEDS ORDERED: guaiFENesin 600 MG TABCR PO STA (16:15)
--- NOTE | 2022-11-14 16:53 | XCELERA ---
[id number]
[2022-11-14] MEDS: ICU ELECTROLYTE REPLACEMENT PROTOCOL SCH (17:01)
--- NOTE | 2022-11-14 17:02 | Cardiology Progress Note ---
Date of Service November 14, 2022 Assessment & Plan (1) Nonischemic cardiomyopathy: (2) Acute on chronic systolic congestive heart failure: (3) Complete heart block: Plan 1. Nonischemic cardiomyopathy: He has a long history of cardiomyopathy, currently his ejection fraction by echocardiography is felt to be about 35%. He does not seem to be on appropriate medications for his cardiomyopathy. A right ventricular apex pacemaker would likely cause significant dyssynchrony and agg ravate his left ventricular dysfunction. A His bundle pacemaker would likely recreate his bifascicular block pattern which was seen on prior electrocardiograms and may also be detrimental since he had a very wide complex. I believe a biventricular pacemaker is the best option. 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 I have recommended pacemaker implantation followed by medication adjustment. 2. Congestive heart failure: It is likely his congestive heart failure was exacerbated by developing complete heart block, that may have been present for some time although it is not clear. Hopefully with biventricular pacing his heart failure will be better controlled. 3. Complete heart block: This appears to be recent in onset but the duration is not entirely clear. Today he is in 2-1 AV block, perhaps the beta-josias had something to do with it. I will recheck his rhythm in the morning but I suspect he should have a pacemaker. I am tentatively planning on biventricular pacemaker implantation tomorrow, depending on his clinical status and his rhythm. He is agreeable to this approach. Admission and Anticipated Discharge Date Admission Date: November 14, 2022 Subjective Patient examined and chart reviewed. Events of the past 24 hours reviewed. In brief, he has a long history of what appears to be nonischemic cardiomyopathy although he carries a history of a myocardial infarction, but he does not have coronary artery disease. His left ventricular ejection fraction is significantly reduced now, part of that may be the dyssynchrony of his current pacing but based on some of his records he has had significant left ventricular dysfunction in the past. He does not seem to be on the appropriate medications for cardiomyopathy. He did not recognize carvedilol, Coreg or Entresto. He does not seem to see a rv detailer on a regular basis. He currently is sitting up in bed, he is coughing and appears somewhat short of breath but he is awake and alert and conversational. He denies chest discomfort and still is not feeling his usual self but certainly feels better than on presentation. He is still pacing with his temporary pacemaker. Physical Exam Physical Exam: Constitutional: Alert, cooperative and in moderate distress. He is obese. HEENT: Unremarkable Neck: No jugular venous distention, carotid pulses are normal and equal bilaterally without bruits. Pulmonary: Diffuse crackles on auscultation bilaterally. Cardiac: Regular rhythm with no murmur, gallop or rub. Abdomen: Soft, nontender with normal bowel sounds. Extremities: +1 edema. Distal pulses intact. Neurologic: No focal findings. Skin: No rash, ecchymoses or petechiae. Results & Data ([facility]) Vital Signs (Past 12 Hours) Vital Signs Temp Pulse Resp BP Pulse Ox O2 Del Method O2 Flow Rate 11/14/22 15:06 60 22 132/66 96 Oxymask 10 11/14/22 14:00 60 19 137/55 L 93 Oxymask 10 11/14/22 12:00 60 37 H 144/59 H 92 Oxymask 10 11/14/22 12:00 37.6 C H 11/14/22 11:16 82 17 91 11/14/22 11:16 114/56 L 11/14/22 11:00 60 32 H 115/49 L 92 Oxymask 10 11/14/22 10:17 105/63 11/14/22 10:17 60 35 H 91 11/14/22 10:10 134/54 L 11/14/22 10:10 63 25 H 97 11/14/22 10:01 60 31 H 88 L 11/14/22 10:01 177/60 H 11/14/22 10:00 60 34 H 88 L 11/14/22 09:51 37.9 C H 62 33 H 11/14/22 09:51 161/80 H 11/14/22 09:46 37.9 C H 61 26 H 85 L 11/14/22 09:46 138/48 L 11/14/22 09:15 137/88 11/14/22 09:15 37.6 C H 60 30 H 94 11/14/22 09:00 37.6 C H 40 L 30 H 92 11/14/22 08:59 37.6 C H 60 30 H 92 11/14/22 08:59 138/78 11/14/22 08:57 156/60 H 11/14/22 08:57 37.6 C H 43 L 30 H 92 11/14/22 08:45 37.5 C 60 30 H 92 11/14/22 08:45 134/83 11/14/22 08:45 134/83 11/14/22 08:31 137/58 L 11/14/22 08:31 37.4 C 59 L 30 H 93 11/14/22 09:57 60 29 H 94 11/14/22 08:05 60 30 H 96 11/14/22 08:15 37.3 C 60 26 H 148/77 H 95 Mechanical Vent 11/14/22 08:00 37.3 C 60 26 H 158/69 H 96 Mechanical Vent 11/14/22 08:00 11/14/22 07:45 37.2 C 60 26 H 122/70 96 Mechanical Vent 11/14/22 07:42 Mechanical Vent 11/14/22 07:38 37.2 C 59 L 30 H 87/40 L 95 11/14/22 07:34 37.2 C 60 30 H 69/52 L 96 11/14/22 07:30 37.1 C 60 26 H 70/44 L 94 11/14/22 07:15 37.1 C 60 30 H 91/54 L 93 Mechanical Vent 11/14/22 07:00 37.0 C 60 30 H 98/45 L 96 Mechanical Vent 11/14/22 06:45 36.9 C 60 30 H 113/67 98 Mechanical Vent 11/14/22 06:20 36.9 C 60 30 H 97 11/14/22 06:16 36.9 C 61 30 H 97 11/14/22 06:16 107/62 11/14/22 06:10 36.9 C 59 L 30 H 97 11/14/22 06:01 36.8 C 60 30 H 97 11/14/22 06:01 149/70 H 11/14/22 06:00 36.8 C 65 30 H 97 11/14/22 05:50 36.8 C 60 30 H 97 11/14/22 05:46 36.8 C 65 30 H 97 11/14/22 05:46 138/82 11/14/22 05:40 36.8 C 65 30 H 97 11/14/22 05:31 154/69 H 11/14/22 05:31 36.8 C 60 30 H 96 11/14/22 05:30 36.8 C 59 L 30 H 96 11/14/22 05:20 36.9 C 73 30 H 95 11/14/22 05:16 136/71 11/14/22 05:16 36.9 C 61 30 H 95 11/14/22 05:10 36.9 C 67 30 H 95 11/14/22 05:00 36.9 C 65 30 H 96 11/14/22 05:00 106/68 FiO2 11/14/22 15:06 11/14/22 14:00 11/14/22 12:00 11/14/22 12:00 11/14/22 11:16 11/14/22 11:16 11/14/22 11:00 11/14/22 10:17 11/14/22 10:17 11/14/22 10:10 11/14/22 10:10 11/14/22 10:01 11/14/22 10:01 11/14/22 10:00 11/14/22 09:51 11/14/22 09:51 11/14/22 09:46 11/14/22 09:46 11/14/22 09:15 11/14/22 09:15 11/14/22 09:00 11/14/22 08:59 11/14/22 08:59 11/14/22 08:57 11/14/22 08:57 11/14/22 08:45 11/14/22 08:45 11/14/22 08:45 11/14/22 08:31 11/14/22 08:31 11/14/22 09:57 40 11/14/22 08:05 50 11/14/22 08:15 50 11/14/22 08:00 50 11/14/22 08:00 50 11/14/22 07:45 50 11/14/22 07:42 50 11/14/22 07:38 11/14/22 07:34 11/14/22 07:30 11/14/22 07:15 50 11/14/22 07:00 50 11/14/22 06:45 50 11/14/22 06:20 11/14/22 06:16 11/14/22 06:16 11/14/22 06:10 11/14/22 06:01 11/14/22 06:01 11/14/22 06:00 11/14/22 05:50 11/14/22 05:46 11/14/22 05:46 11/14/22 05:40 11/14/22 05:31 11/14/22 05:31 11/14/22 05:30 11/14/22 05:20 11/14/22 05:16 11/14/22 05:16 11/14/22 05:10 11/14/22 05:00 11/14/22 05:00 Laboratory Results Cardiac Enzymes 11/13/22 11/13/22 11/14/22 Range/Units 22:31 22:31 03:11 AST 31 (13-39) U/L Troponin I High Sens 47.7 H 87.2 H* D (0-20) pg/ml B-Natriuretic Peptide 558 H (0-100) pg/ml 11/14/22 11/14/22 Range/Units 05:23 09:51 AST 26 (13-39) U/L Troponin I High Sens 135.5 H* D (0-20) pg/ml B-Natriuretic Peptide (0-100) pg/ml Coagulation 11/13/22 11/13/22 Range/Units 22:31 22:31 PT 10.9 (9.0-12.0) Seconds APTT 24.8 (21.0-31.0) Seconds B-Natriuretic Peptide 558 H (0-100) pg/ml CBC 11/13/22 11/14/22 Range/Units 22:31 05:23 WBC 14.01 H 15.50 H (4.8-10.8) K/ul RBC 4.88 4.66 L (4.70-6.10) M/uL Hgb 16.1 15.1 (14.0-18.0) g/dl Hct 45.3 44.3 (42.0-52.0) % Plt Count 199 202 (130-400) K/uL Neut # (Auto) 10.96 H 12.35 H (1.40-6.50) K/uL Lymph # (Auto) 1.24 1.14 L (1.2-3.4) K/uL [place] # (Auto) 1.65 H 1.88 H (0.11-0.59) K/uL Eos # (Auto) 0.05 0.02 (0-0.50) K/uL Baso # (Auto) 0.07 0.06 (0-0.2) K/uL Comprehensive Metabolic Panel 11/13/22 11/14/22 Range/Units 22:31 05:23 Sodium 139 137 (136-145) mmol/L Potassium 4.1 3.9 (3.5-5.1) mmol/L Chloride 102 101 (98-107) mmol/L Carbon Dioxide 28 29 (21-32) mmol/L BUN 19 22 (6-23) mg/dl Creatinine 1.09 1.37 (0.6-1.4) mg/dl Glucose 160 H 150 H (70-99(Fasting)) mg/dl Calcium 10.0 9.5 (8.5-10.1) mg/dl Direct Bilirubin 0.2 0.3 H (0-0.2) mg/dl AST 31 26 (13-39) U/L ALT 28 25 (7-52) U/L Alkaline Phosphatase 57 51 (34-104) U/L Total Protein 7.5 6.8 (6.0-8.3) gm/dl Albumin 4.3 3.9 (3.4-5.0) gm/dl Intake and Output 11/14/22 11/14/22 11/14/22 06:59 14:59 22:59 Intake Total 440.295 / 440.295 985.245 / 985.245 Output Total 900 / 900 1335 / 1560 225 / 1560 Balance -459.705 / -459.705 -349.755 / -574.755 -225 / -574.755 Intake: IV 440.295 / 440.295 985.245 / 985.245 Magnesium Sulfate / D5w 1 gm In 187.5 / 187.5 100 / 100 100 ml @ 50 mls/hr IV Q2H [facility] Rx#:[id number] Nitroglycerin/D5w 100Mcg/ml 250 5.5 / 5.5 244.5 / 244.5 ml @ 0 MCG/MIN IV .Q0M [facility] Rx# :[id number] Norepinephrine/D5w 4 mg In 250 128.545 / 128.545 121.455 / 121.455 ml @ 0.05 MCG/KG/MIN 29.775 mls /hr IV .Q8H24M [facility] Rx#:[id number] Potassium Chloride / Wtr 10 meq 100 / 100 In 100 ml @ 100 mls/hr IV ONE ONE Rx#:[id number] fentaNYL citrate 2,500 mcg In 18.75 / 18.75 231.250 / 231.250 250 ml @ 75 MCG/HR 7.5 mls/hr IV .[id number] [facility] Rx#:[id number] propofoL 1,000 mg In 100 ml @ 100.000 / 100.000 188.040 / 188.040 30 MCG/KG/MIN 28.404 mls/hr IV .Q3H32M [facility] Rx#:[id number] Oral 0 / 0 Output: Urine Amount (Catheter) 900 / 900 1335 / 1560 225 / 1560 Temp Sensing Nuñez 900 / 900 1335 / 1560 225 / 1560 Other: Other Intake Source sips Weight 158.8 kg 158.8 kg Weight Measurement Method Built in [facility] Patient Weight 11/15/22 06:59 Weight 158.8 kg Diagnostic Findings Telemetry: Pacing throughout. Pacemaker: I turned down his pacing rate and he is an 2-1 AV conduction with a ventricular rate of 35 bpm. Return to ventricular pacing. PG Care Time/CCT Total # of Minutes Spent Total Time Spent with Patient: Total time spent is greater than 50% in coordination of care (as documented) at patient's floor/unit and/or counseling patient: Coding Level of Care Code 81108 SUB INP/OBS CARE 3/50MIN Diagnoses Nonischemic cardiomyopathy I42.8 Acute on chronic systolic congestive heart failure I50.23 Complete heart block I44.2
[2022-11-14] MEDS: ENOXAPARIN INJ 30 MG/0.3 ML SYR SQ SCH (20:28)
[2022-11-14] MEDS: guaiFENesin 600 MG TABCR PO SCH (20:28)
[2022-11-14] MEDS ORDERED: guaiFENesin 600 MG TABCR PO SCH (21:00)
--- NOTE | 2022-11-14 22:41 | Billing Data ---
Date of Service November 14, 2022 Coding Level of Care Code 20757 CRITICAL CARE
[2022-11-15] MEDS: ALBUT/IPRATROP 3MG/0.5MG NEB 3 ML VIAL NEB SCH ×4 (00:14→20:01)
[2022-11-15] MEDS: NOREPINEPHRINE/D5W 4 MG/250 ML PLCT IV SCH (03:15)
[2022-11-15 05:19] LABS: BUN Creatinine Ratio 16.8 (10-20); Calcium 9.4 mg/dl (8.5-10.1); Creatinine Clr Calc Pharmacy 95.6 ml/min; Est GFR (African American) 74.4 ml/min; Est GFR (Non-African American) 64.2 ml/min; Phosphorus 3.5 mg/dl (2.5-4.9); Potassium 3.9 mmol/L (3.5-5.1)
[2022-11-15] MEDS: ICU ELECTROLYTE REPLACEMENT PROTOCOL SCH ×2 (05:34→18:26)
[2022-11-15] MEDS: ICU Protocol for HYPERglycemia SCH ×3 (05:35→18:26)
[2022-11-15 05:41] LABS: Basophils # (auto) 0.09 K/uL (0-0.2); Basophils % (auto) 0.7 %; Eosinophils # (auto) 0.09 K/uL (0-0.50); Eosinophils % (auto) 0.7 %; Hematocrit (blood only) 42.8 % (42.0-52.0); Hemoglobin 14.7 g/dl (14.0-18.0); Immature Granulocytes # (auto) 0.05 K/uL (0.01-0.20); Immature Granulocytes % (auto) 0.4 %; Lymphocytes # (auto) 1.12 K/uL (1.2-3.4); Lymphocytes % (auto) 9.2 %; Mean Corpuscular Hgb Conc 34.3 g/dL (32.0-36.0); Mean Platelet Volume 10.5 fL (9.4-12.4); Monocytes # (auto) 1.83 K/uL (0.11-0.59); Neutrophils # (auto) 9.02 K/uL (1.40-6.50); Platelet Count 158 K/uL (130-400); RDW Coefficient of Variation 13.2 % (11.5-14.5); RDW Standard Deviation 46.8 fL (36.4-46.3); Red Blood Count 4.46 M/uL (4.70-6.10)
[2022-11-15] MEDS: POTASSIUM CHLORIDE / WTR 20 MEQ/100 ML PLCT IV SCH ×2 (05:58→08:13)
[2022-11-15] MEDS: MAGNESIUM SULFATE / D5W 1 GM/100 ML BAG IV SCH ×2 (05:58→08:13)
--- NOTE | 2022-11-15 07:17 | Critical Care Progress Note ---
Date of Service November 15, 2022 Assessment & Plan (1) Complete heart block: (2) Acute respiratory failure with hypoxia: (3) HTN (hypertension): (4) Cardiomyopathy: (5) Hyperlipidemia: (6) Sleep apnea: Plan Reason Critically Ill: 62-year-old male presents to the ICU with hypoxic respiratory failure in the setting of complete heart block and hypertension with heart failure with reduced EF from previous nonischemic cardiomyopathy. Neuro CAM ICU: Negative Sedation: None Analgesia: Tylenol 1000 mg PO Q8H (back pain) Cardiac * Complete Heart Block: unclear etiology, s/p transvenous pacer, planned permanent biventricular pacer today, currently paced at 60 bpm * Coronaries w/o significant disease noted during cath * Echocardiogram 11/14 indicating EF of 35-40% (improved from 2010 Echo), global hypokinesis, and severe LVH * Cardiology following * Hypertension: Beta josias held, Lisinopril 5 mg PO QAM started today * Ongoing continuous monitoring * Hyperlipidemia: continue statin Respiratory * Acute Hypoxic Respiratory Failure: likely 2/2 CHF exacerbation a/w complete heart block and pre-existing HFrEF * Patient was emergently intubated on arrival, was extubated 11/14, currently at 96% on oxymask w/ BiPAP overnight * Encouraged patient to have family bring home CPAP * Admission CXR indicating cardiomegaly w/ mild (asymmetric) pulmonary edema, improvement on 11/14 repeat imaging * Continue diuresis, dose of Lasix 40 mg IV 11/15 GI * NPO for pacemaker placement 11/15 * GI PPx discontinued d/t discontinuation of pressors and mechanical ventilation RENAL/LYTES * No significant electrolyte derangements * Cr 1.19 (from 1.37), BUN 20, GFR 64.2, can continu diuresis * Mg 2.0 (supplementation ordered), Phos 3.5, K 3.9 (supplemenation ordered) * Continue Nuñez, strict I&Os * Currently negative ~ 1200 mL, goal to diurese 1-2 L per 24h ENDO * No Hx of DM or thyroid disease * Follow ICU hyperglycemic protocols HEME * Stable H&H (14.7/42.8) ID * No concerns for active infection at this point, abx not indicated * COVID/Flu negative * Procalcitonin negative * Leukocytosis downtrending (12.2 H from 15.5H) * Lung exam improving * Follow temperature curve * Continue supportive care with Mucinex and cough drops INTEGUMENTARY * Surgical site clean/dry w/o erythema or purulence LINES/IV ACCESS * PIVs intact. DVT PROPHYLAXIS * SCD * Lovenox 30 mg Q12h Thank you for allowing us to be part of this patient's care. Please refer to []'s documentation for any further recommendations Admission and Anticipated Discharge Date Admission Date: November 14, 2022 Supervising Physician Co-Signing Physician Notes Impression: Patient seen and examined. EMR reviewed. Discussed with family practice resident on multidisciplinary rounds. Agree with assessment plan as noted. Patient is pending permanent pacemaker placement today. Once that is in place, he can increase his activity level to out of bed as tolerated. Would then consider the addition of beta-blockers as well given his nonischemic cardiomyopathy. We will uptitrate his CALIXTO inhibitor. Continue empiric BiPAP at night. The patient's family is bringing in his CPAP machine from home for use nightly. Continue attempts at diuresis targeting -1 to 2 L per 24 hours. Weight loss is recommended given patient's morbid obesity. No indication for antibiotics currently. He does likely have a component of obstructive lung disease/chronic bronchitis. Smoking cessation was recommended. We will place him on a trial of an oral. No indication for steroids or antibiotics currently. Aggressive pulmonary toilet using incentive spirometry and flutter valve while in bed is recommended and discussed with respiratory therapy. Once the patient has his pacemaker placed, he can likely transfer to telemetry. Critical care will sign off at that point time. Feel free to contact us with questions or concerns Roel Portillo is a 62M with history of HTN, HLD, BPH, NSTEMI (2010), cardiomyopathy, bifascicular block, ANT (on CPAP), obesity, and HFrEF who presented in complete heart block and us currently s/p temporary transvenous pacer with planned placement of permanent pacemaker. Patient notes that he is feeling much improved today, he notes a cough that is ongoing, but that Mucinex has improved his symptoms. He endorses bilateral sinus pressure, but denies any headaches, vision changes, sore throat, or ear pain. Patient denies any chest pain, dyspnea, abdominal pain, or urinary discomfort. He notes that he is anticipating getting out of bed. Patient does not that he has recently struggled with mental health and was scheduled to be evaluated by psychiatry yesterday, but missed his appointment. He endorses thoughts of self harm, but denies attempts or plan and states that 'he would never actually do anything'. After discussion with patient it was noted that that he has a 40+ year history of smoking 1PPD, he states that he had quit for a while but has been recently smoking. He believes that he has received PFTs before but is uncertain. Review of Systems Review of Systems: As per HPI Physical Exam Physical Exam: Gen: NAD, alert, interactive, non-toxic HEENT: Supple, no LAD, no thyromegaly, no JVD Resp:Non-labored, no wheezing, faint crackles in bilateral lower lobes, otherwise CTAB CV: paced,RRR, normal S1/S2, no M/R/G, surgical site from temporary pacer clean/dry Abd: Soft, non-distended, no TTP, normoactive bowels, no masses, Nuñez intact Extr: 2+ dp bilaterally, trace LE edema, SCDs intact Skin: No rashes lesions or erythema Results & Data Results & Data ([facility]) Vital Signs (Past 12 Hours) Vital Signs Temp Pulse Pulse Resp BP Pulse Ox O2 Del Method 11/15/22 06:30 37.7 C H 65 30 H 95 11/15/22 06:01 37.6 C H 60 25 H 96 11/15/22 06:01 151/70 H 11/15/22 06:00 37.6 C H 60 23 96 11/15/22 05:30 37.6 C H 60 23 95 11/15/22 05:01 144/71 H 11/15/22 05:01 37.7 C H 60 22 95 11/15/22 05:00 37.7 C H 60 21 96 11/15/22 04:30 37.5 C 60 27 H 97 11/15/22 04:00 37.3 C 60 20 97 11/15/22 04:00 124/72 11/15/22 03:30 37.3 C 60 21 96 11/15/22 03:01 37.3 C 60 20 95 11/15/22 03:01 122/68 11/15/22 03:00 37.3 C 60 22 94 11/15/22 02:30 37.3 C 60 22 96 11/15/22 03:41 60 24 96 11/15/22 02:00 37.3 C 60 22 94 11/15/22 02:00 126/65 11/15/22 01:01 37.4 C 60 23 93 11/15/22 01:01 116/67 BiPAP 11/15/22 01:00 37.4 C 60 21 95 11/15/22 00:14 70 28 H 96 BiPAP 11/15/22 00:14 70 28 H 96 11/15/22 00:01 120/74 11/15/22 00:01 37.4 C 60 26 H 93 11/15/22 00:00 37.4 C 60 26 H 91 11/14/22 23:30 37.5 C 60 25 H 92 11/14/22 23:00 37.5 C 60 28 H 96 11/14/22 23:00 124/71 11/14/22 22:00 37.8 C H 60 32 H 94 11/14/22 22:00 116/66 11/14/22 23:42 60 11/14/22 21:01 109/63 11/14/22 21:01 38.0 C H 60 30 H 11/14/22 21:00 38.0 C H 60 22 95 11/14/22 20:30 38.0 C H 60 25 H 94 Oxymask 11/14/22 20:01 134/98 11/14/22 20:01 60 26 H 90 11/14/22 20:00 60 21 95 11/14/22 21:10 Oxymask 11/14/22 19:30 60 22 94 Oxymask 11/14/22 19:31 60 20 96 Oxymask O2 Flow Rate FiO2 11/15/22 06:30 11/15/22 06:01 11/15/22 06:01 11/15/22 06:00 11/15/22 05:30 11/15/22 05:01 11/15/22 05:01 11/15/22 05:00 11/15/22 04:30 11/15/22 04:00 11/15/22 04:00 11/15/22 03:30 11/15/22 03:01 11/15/22 03:01 11/15/22 03:00 11/15/22 02:30 11/15/22 03:41 40 11/15/22 02:00 11/15/22 02:00 11/15/22 01:01 11/15/22 01:01 40 11/15/22 01:00 11/15/22 00:14 40 11/15/22 00:14 40 11/15/22 00:01 11/15/22 00:01 11/15/22 00:00 11/14/22 23:30 11/14/22 23:00 11/14/22 23:00 11/14/22 22:00 11/14/22 22:00 11/14/22 23:42 11/14/22 21:01 11/14/22 21:01 11/14/22 21:00 11/14/22 20:30 4 11/14/22 20:01 11/14/22 20:01 11/14/22 20:00 11/14/22 21:10 4 11/14/22 19:30 4 11/14/22 19:31 4 Critical Care Results & Data Vital Signs (Past 12 Hours) Vital Signs Temp Pulse Pulse Resp BP Pulse Ox O2 Del Method 11/15/22 09:31 Oxymask 11/15/22 07:21 60 18 96 Oxymask 11/15/22 06:30 37.7 C H 65 30 H 95 11/15/22 06:01 37.6 C H 60 25 H 96 11/15/22 06:01 151/70 H 11/15/22 06:00 37.6 C H 60 23 96 11/15/22 05:30 37.6 C H 60 23 95 11/15/22 05:01 144/71 H 11/15/22 05:01 37.7 C H 60 22 95 11/15/22 05:00 37.7 C H 60 21 96 11/15/22 04:30 37.5 C 60 27 H 97 11/15/22 04:00 37.3 C 60 20 97 11/15/22 04:00 124/72 11/15/22 03:30 37.3 C 60 21 96 11/15/22 03:01 37.3 C 60 20 95 11/15/22 03:01 122/68 11/15/22 03:00 37.3 C 60 22 94 11/15/22 02:30 37.3 C 60 22 96 11/15/22 03:41 60 24 96 11/15/22 02:00 37.3 C 60 22 94 11/15/22 02:00 126/65 11/15/22 01:01 37.4 C 60 23 93 11/15/22 01:01 116/67 BiPAP 11/15/22 01:00 37.4 C 60 21 95 11/15/22 00:14 70 28 H 96 BiPAP 11/15/22 00:14 70 28 H 96 11/15/22 00:01 120/74 11/15/22 00:01 37.4 C 60 26 H 93 11/15/22 00:00 37.4 C 60 26 H 91 11/14/22 23:30 37.5 C 60 25 H 92 11/14/22 23:00 37.5 C 60 28 H 96 11/14/22 23:00 124/71 11/14/22 23:42 60 O2 Flow Rate FiO2 11/15/22 09:31 4 11/15/22 07:21 11/15/22 06:30 11/15/22 06:01 11/15/22 06:01 11/15/22 06:00 11/15/22 05:30 11/15/22 05:01 11/15/22 05:01 11/15/22 05:00 11/15/22 04:30 11/15/22 04:00 11/15/22 04:00 11/15/22 03:30 11/15/22 03:01 11/15/22 03:01 11/15/22 03:00 11/15/22 02:30 11/15/22 03:41 40 11/15/22 02:00 11/15/22 02:00 11/15/22 01:01 11/15/22 01:01 40 11/15/22 01:00 11/15/22 00:14 40 11/15/22 00:14 40 11/15/22 00:01 11/15/22 00:01 11/15/22 00:00 11/14/22 23:30 11/14/22 23:00 11/14/22 23:00 11/14/22 23:42 Lab & Micro Results (Past 24 Hours) RBC 4.46 M/uL (4.70-6.10) L 11/15/22 WBC 12.20 K/ul (4.8-10.8) H 11/15/22 Hgb 14.7 g/dl (14.0-18.0) 11/15/22 Hct 42.8 % (42.0-52.0) 11/15/22 MCV 96.0 fL (80.0-100.0) 11/15/22 MCH 33.0 pg (25.0-34.0) 11/15/22 MCHC 34.3 g/dL (32.0-36.0) 11/15/22 RDW Standard Deviation 46.8 fL (36.4-46.3) H 11/15/22 RDW Coefficient of Variation 13.2 % (11.5-14.5) 11/15/22 Plt Count 158 K/uL (130-400) 11/15/22 MPV 10.5 fL (9.4-12.4) 11/15/22 Neutrophils (%) (Auto) 74.0 % 11/15/22 Lymphocytes (%) (Auto) 9.2 % 11/15/22 Monocytes # (Auto) 1.83 K/uL (0.11-0.59) H 11/15/22 Eosinophils # (Auto) 0.09 K/uL (0-0.50) 11/15/22 Immature Granulocyte % (Auto) 0.4 % 11/15/22 Neutrophils # (Auto) 9.02 K/uL (1.40-6.50) H 11/15/22 Lymphocytes # (Auto) 1.12 K/uL (1.2-3.4) L 11/15/22 Monocytes # (Auto) 1.83 K/uL (0.11-0.59) H 11/15/22 Eosinophils # (Auto) 0.09 K/uL (0-0.50) 11/15/22 Basophils # (Auto) 0.09 K/uL (0-0.2) 11/15/22 Immature Granulocyte # (Auto) 0.05 K/uL (0.01-0.20) 3 Na 137 mmol/L (136-145) 11/15/22 K 3.9 mmol/L (3.5-5.1) 11/15/22 Cl 99 mmol/L (98-107) 11/15/22 CO2 33 mmol/L (21-32) H 11/15/22 Anion Gap 5 (3-11) 11/15/22 BUN 20 mg/dl (6-23) 11/15/22 Creatinine 1.19 mg/dl (0.6-1.4) 11/15/22 Estimated GFR ( Amer) 74.4 ml/min 11/15/22 Estimated GFR (Non-Af Amer) 64.2 ml/min 11/15/22 BUN/Creatinine Ratio 16.8 (10-20) 11/15/22 Glu 106 mg/dl (70-99(Fasting)) H 11/15/22 Ca 9.4 mg/dl (8.5-10.1) 11/15/22 Phosphorus Level 3.5 mg/dl (2.5-4.9) 11/15/22 2 Mg 2.0 mg/dl (1.7-2.4) 11/15/22 04:45 Calcium Level 9.4 mg/dl (8.5-10.1) 11/15/22 04:45 Microbiology 11/14/22 09:39 Gram Stain - Final Sputum,Vent Suction I & O Totals 24 Hours 11/14/22 11/15/22 11/16/22 06:59 06:59 06:59 Intake Total 440.295 / 589.134 3111.245 / 2335.245 200 / 200 Output Total 900 / 900 3760 / 3760 1000 / 1000 Balance -459.705 / -459.705 -1424.755 / -1424.755 -800 / -800 Cumulative 11/13/22 22:14 thru 11/15/22 10:00 Intake Total 2975.540 Output Total 5660 Balance -2684.460 RT Ventilator Mngmt (Last Documented) Ventilator Ordered Settings Ventilator Support Mode Assist Control 11/14/22 08:05 Respiratory Rate 18 11/15/22 07:21 Ventilator Tidal Volume 500 11/14/22 08:05 Setting Minute Ventilation 15.0 11/14/22 08:05 Ventilator Positive Pressure 10 11/14/22 08:00 Support Setting Positive End Expiratory 10 11/14/22 08:05 Pressure Fraction of Inspired Oxygen 40 11/15/22 03:41 Peak Inspiratory Flow 44 11/14/22 08:05 Machine Comment found peep on 10 11/14/22 08:05 Ventilator - PT Measurements Respiratory Rate 18 Exhaled Tidal Volume 500 Minute Ventilation 15.0 Peak Inspiratory Airway 40 Pressure Plateau Pressure 30.1 Respiratory Cycle Inspiratory: 1:1.2 Expiratory Ratio Inspiratory Phase Time 0.90 End-Tidal CO2 33 Static Lung Compliance 24.88 Dynamic Lung Compliance 16.67 Normal Static Lung Compliance 45.00 Patient Measurements Comment extubated to bipap per dr. kim Resident Activity Tracking Resident Involvement: Resident Care Provided Care Provided: Adult Hospital Medicine
[2022-11-15] MEDS: ENOXAPARIN INJ 30 MG/0.3 ML SYR SQ SCH ×2 (08:15→21:19)
[2022-11-15] MEDS ORDERED: FUROSEMIDE 40 MG/4 ML VIAL IV ONE (08:26)
[2022-11-15] MEDS: UMECLIDINIUM/VILANTEROL 62.5/25MCG 7 PUFFS/INHALER INH SCH (08:31)
[2022-11-15] MEDS ORDERED: ACETAMINOPHEN 500 MG TAB PO PRN (08:32)
[2022-11-15] MEDS: ATORVASTATIN 40 MG TAB PO SCH (09:01)
[2022-11-15] MEDS: ASPIRIN 81 MG CHEW PO SCH (09:01)
[2022-11-15] MEDS: TAMSULOSIN HCL 0.4 MG CAP PO SCH (09:02)
[2022-11-15] MEDS: lisinopril 5 MG TAB PO SCH (09:02)
[2022-11-15] MEDS: guaiFENesin 600 MG TABCR PO SCH ×2 (09:02→21:19)
--- NOTE | 2022-11-15 10:27 | Billing Data ---
Date of Service November 15, 2022 Coding Level of Care Code 15058 SUB INP/OBS CARE 3MIN
--- NOTE | 2022-11-15 10:29 | Hospitalist Progress Note ---
Date of Service November 15, 2022 Assessment & Plan (1) Acute respiratory failure with hypoxia: Plan: Likely secondary to acute on chronic systolic CHF Extubated on 11/14 Please see below for management of CHF (2) Acute on chronic systolic congestive heart failure: Plan: Reported EF approximately 18% in the past. No echocardiogram report on file. TTE 11/14 showed EF of 35%, global hypokinesis and severe concentric LVH Most likely triggered by bradycardia and complete heart block. Please see management for complete heart block below Was diuresed IV Lasix, with good clinical and diuretic response Received 40 mg of IV Lasix today Renal function tolerating with stable creatinine Underwent cardiac catheterization 11/14 that showed clean coronaries (3) Complete heart block: Plan: Currently temporarily paced Plan for permanent biventricular pacemaker today EP cardiology on board No beta-josias for now until pacemaker Continue monitoring on telemetry Lyme's disease negative. TSH normal (4) Nonischemic cardiomyopathy: Plan: Patient had a cardiac catheterization earlier this morning that showed normal coronaries Echocardiogram completed, official report pending Diuresis as needed Will need guideline directed medical therapy once more stable Patient was started on lisinopril oral 5 mg p.o. every morning today (5) HTN (hypertension): Plan: Patient was started on lisinopril 5 mg p.o. daily today Now off of pressors Received a dose of Lasix 40 mg IV today (6) Hyperlipidemia: Plan: Continue statin (7) Sleep apnea: Plan: Patient can bring his own CPAP to be used at night Admission and Anticipated Discharge Date Admission Date: November 14, 2022 Subjective Patient got extubated yesterday! He is now on 5 L of oxygen. He says that his breathing is much better than when he first came to the hospital. He will have a pacemaker placed today. Review of Systems Review of Systems: All systems reviewed & are unremarkable except as noted in Subjective Physical Exam Physical Exam: General: Awake, conversant Heart: S1, S2/regular rate and rhythm, no murmur rubs or gallops Lungs: Clear to auscultation bilaterally. Normal effort Abdomen: Soft/nontender/nondistended. No hepatosplenomegaly Extremities: No clubbing/cyanosis. No edema Behavior: Appropriate, cooperative Results & Data Results & Data Vital Signs (Past 12 Hours) Vital Signs Temp Pulse Pulse Resp BP Pulse Ox O2 Del Method 11/15/22 09:31 Oxymask 03/15/23 07:21 60 18 96 Oxymask 11/15/22 06:30 37.7 C H 65 30 H 95 11/15/22 06:01 37.6 C H 60 25 H 96 11/15/22 06:01 151/70 H 11/15/22 06:00 37.6 C H 60 23 96 11/15/22 05:30 37.6 C H 60 23 95 11/15/22 05:01 144/71 H 11/15/22 05:01 37.7 C H 60 22 95 11/15/22 05:00 37.7 C H 60 21 96 11/15/22 04:30 37.5 C 60 27 H 97 11/15/22 04:00 37.3 C 60 20 97 11/15/22 04:00 124/72 11/15/22 03:30 37.3 C 60 21 96 11/15/22 03:01 37.3 C 60 20 95 11/15/22 03:01 122/68 11/15/22 03:00 37.3 C 60 22 94 11/15/22 02:30 37.3 C 60 22 96 11/15/22 03:41 60 24 96 11/15/22 02:00 37.3 C 60 22 94 11/15/22 02:00 126/65 11/15/22 01:01 37.4 C 60 23 93 11/15/22 01:01 116/67 BiPAP 11/15/22 01:00 37.4 C 60 21 95 11/15/22 00:14 70 28 H 96 BiPAP 11/15/22 00:14 70 28 H 96 11/15/22 00:01 120/74 11/15/22 00:01 37.4 C 60 26 H 93 11/15/22 00:00 37.4 C 60 26 H 91 11/14/22 23:30 37.5 C 60 25 H 92 11/14/22 23:00 37.5 C 60 28 H 96 11/14/22 23:00 124/71 11/14/22 23:42 60 O2 Flow Rate FiO2 11/15/22 09:31 4 11/15/22 07:21 11/15/22 06:30 11/15/22 06:01 11/15/22 06:01 11/15/22 06:00 11/15/22 05:30 11/15/22 05:01 11/15/22 05:01 11/15/22 05:00 11/15/22 04:30 11/15/22 04:00 11/15/22 04:00 11/15/22 03:30 11/15/22 03:01 11/15/22 03:01 11/15/22 03:00 11/15/22 02:30 11/15/22 03:41 40 11/15/22 02:00 11/15/22 02:00 11/15/22 01:01 11/15/22 01:01 40 11/15/22 01:00 11/15/22 00:14 40 11/15/22 00:14 40 11/15/22 00:01 11/15/22 00:01 11/15/22 00:00 11/14/22 23:30 11/14/22 23:00 11/14/22 23:00 11/14/22 23:42 Laboratory Results Abnormal lab results 11/14/22 11/14/22 11/15/22 Range/Units 17:15 20:45 04:45 WBC 12.20 H (4.8-10.8) K/ul RBC 4.46 L (4.70-6.10) M/uL RDW Std Deviation 46.8 H (36.4-46.3) fL Neut # (Auto) 9.02 H (1.40-6.50) K/uL Lymph # (Auto) 1.12 L (1.2-3.4) K/uL [place] # (Auto) 1.83 H (0.11-0.59) K/uL Carbon Dioxide (21-32) mmol/L Glucose (70-99(Fasting)) mg/dl POC Glucose 142 H 126 H (70-99) mg/dl 11/15/22 11/15/22 Range/Units 04:45 11:56 WBC (4.8-10.8) K/ul RBC (4.70-6.10) M/uL RDW Std Deviation (36.4-46.3) fL Neut # (Auto) (1.40-6.50) K/uL Lymph # (Auto) (1.2-3.4) K/uL [place] # (Auto) (0.11-0.59) K/uL Carbon Dioxide 33 H (21-32) mmol/L Glucose 106 H (70-99(Fasting)) mg/dl POC Glucose 109 H (70-99) mg/dl PG Care Time/CCT Total # of Minutes Spent Total Time Spent: 35 Total Time Spent with Patient: I spent 35 minutes in the care of this patient. The time was spent in talking to the patient, nurse, care management team, reviewing the chart, formulating plan and placing the orders accordingly. Coding Level of Care Code 14480 SUB INP/OBS CARE 2/35MIN Diagnoses Acute respiratory failure with hypoxia J96.01 Acute on chronic systolic congestive heart failure I50.23 Complete heart block I44.2 Nonischemic cardiomyopathy I42.8 HTN (hypertension) I10 Hyperlipidemia E78.5 Sleep apnea G47.30
[2022-11-15] MEDS ORDERED: VANCOMYCIN HCL 1000MG/20ML VIAL ONE (11:59)
[2022-11-15] MEDS ORDERED: LIDOCAINE 1% LOCAL 20 ML VIAL ONE (11:59)
[2022-11-15] MEDS ORDERED: WATER, STERILE FOR INJ 10 ML VIAL ONE (11:59)
[2022-11-15] MEDS ORDERED: BUPIVACAINE 0.25% PF 30 ML VIAL ONE (11:59)
--- NOTE | 2022-11-15 13:52 | Cardiology Progress Note ---
Date of Service November 15, 2022 Assessment & Plan (1) Nonischemic cardiomyopathy: (2) Acute on chronic systolic congestive heart failure: (3) Complete heart block: Plan 1. Nonischemic cardiomyopathy: He has a long history of cardiomyopathy, currently his ejection fraction by echocardiography is felt to be about 35%. He does not seem to be on appropriate medications for his cardiomyopathy. A right ventricular apex pacemaker would likely cause significant dyssynchrony and agg ravate his left ventricular dysfunction. A His bundle pacemaker would likely recreate his bifascicular block pattern which was seen on prior electrocardiograms and may also be detrimental since he had a very wide complex. I believe a biventricular pacemaker is the best option. 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 I have recommended biventricular pacemaker implantation followed by medication adjustment. 2. Congestive heart failure: It is likely his congestive heart failure was exacerbated by developing complete heart block, that may have been present for some time although it is not clear. His symptoms were quite sudden. Hopefully with biventricular pacing his heart failure will be better controlled. 3. Complete heart block: This appears to be recent in onset but the duration is not entirely clear. He had underlying severe conduction system disease so it is not surprising. Today he remains in complete heart block, at this point the beta-blockade is very unlikely to be a contributor since he has not been receiving it since before admission. He will need a pacemaker. I have discussed the indications, procedure, risks and alternatives of pacemaker implantation with him, including the biventricular approach, and he understands and agrees to proceed. We will plan on that this afternoon. Admission and Anticipated Discharge Date Admission Date: November 14, 2022 Subjective He is feeling somewhat better today, less short of breath. No chest discomfort. Physical Exam Physical Exam: Constitutional: Alert, cooperative and in moderate distress. He is obese. HEENT: Unremarkable Neck: No jugular venous distention, carotid pulses are normal and equal bilaterally without bruits. Pulmonary: Diffuse crackles on auscultation bilaterally. Cardiac: Regular rhythm with no murmur, gallop or rub. Abdomen: Soft, nontender with normal bowel sounds. Extremities: +1 edema. Distal pulses intact. Neurologic: No focal findings. Skin: No rash, ecchymoses or petechiae. Results & Data Vital Signs (Past 12 Hours) Vital Signs Temp Pulse Pulse Resp BP Pulse Ox O2 Del Method 11/15/22 08:00 60 11/15/22 12:04 37.4 C 60 16 95/64 L 93 Nasal Cannula 11/15/22 11:01 37.6 C H 60 20 130/68 92 11/15/22 10:01 37.9 C H 60 18 112/62 97 11/15/22 09:01 38.0 C H 60 24 127/63 89 L 11/15/22 08:01 37.9 C H 60 27 H 126/68 94 11/15/22 07:01 37.8 C H 60 24 153/72 H 92 Oxymask 11/15/22 12:16 60 18 94 Nasal Cannula 11/15/22 09:31 Oxymask 11/15/22 07:21 60 18 96 Oxymask 11/15/22 06:30 37.7 C H 65 30 H 95 11/15/22 06:01 37.6 C H 60 25 H 96 11/15/22 06:01 151/70 H 11/15/22 06:00 37.6 C H 60 23 96 11/15/22 05:30 37.6 C H 60 23 95 11/15/22 05:01 144/71 H 11/15/22 05:01 37.7 C H 60 22 95 11/15/22 05:00 37.7 C H 60 21 96 11/15/22 04:30 37.5 C 60 27 H 97 11/15/22 04:00 37.3 C 60 20 97 11/15/22 04:00 124/72 11/15/22 03:30 37.3 C 60 21 96 11/15/22 03:01 37.3 C 60 20 95 11/15/22 03:01 122/68 11/15/22 03:00 37.3 C 60 22 94 11/15/22 02:30 37.3 C 60 22 96 11/15/22 03:41 60 24 96 11/15/22 02:00 37.3 C 60 22 94 11/15/22 02:00 126/65 O2 Flow Rate FiO2 11/15/22 08:00 11/15/22 12:04 4 11/15/22 11:01 11/15/22 10:01 11/15/22 09:01 11/15/22 08:01 11/15/22 07:01 4 11/15/22 12:16 4 11/15/22 09:31 4 11/15/22 07:21 11/15/22 06:30 11/15/22 06:01 11/15/22 06:01 11/15/22 06:00 11/15/22 05:30 11/15/22 05:01 11/15/22 05:01 11/15/22 05:00 11/15/22 04:30 11/15/22 04:00 11/15/22 04:00 11/15/22 03:30 11/15/22 03:01 11/15/22 03:01 11/15/22 03:00 11/15/22 02:30 11/15/22 03:41 40 11/15/22 02:00 11/15/22 02:00 Laboratory Results CBC 11/15/22 Range/Units 04:45 WBC 12.20 H (4.8-10.8) K/ul RBC 4.46 L (4.70-6.10) M/uL Hgb 14.7 (14.0-18.0) g/dl Hct 42.8 (42.0-52.0) % Plt Count 158 (130-400) K/uL Neut # (Auto) 9.02 H (1.40-6.50) K/uL Lymph # (Auto) 1.12 L (1.2-3.4) K/uL [place] # (Auto) 1.83 H (0.11-0.59) K/uL Eos # (Auto) 0.09 (0-0.50) K/uL Baso # (Auto) 0.09 (0-0.2) K/uL Comprehensive Metabolic Panel 11/15/22 Range/Units 04:45 Sodium 137 (136-145) mmol/L Potassium 3.9 (3.5-5.1) mmol/L Chloride 99 (98-107) mmol/L Carbon Dioxide 33 H (21-32) mmol/L BUN 20 (6-23) mg/dl Creatinine 1.19 (0.6-1.4) mg/dl Glucose 106 H (70-99(Fasting)) mg/dl Calcium 9.4 (8.5-10.1) mg/dl Intake and Output 11/14/22 11/15/22 11/15/22 22:59 06:59 14:59 Intake Total 1250 / 2335.245 100 / 2335.245 400 / 400 Output Total / 3760 1999 / 3760 1600 / 1600 Balance 825 / -1424.755 -1900 / -1424.755 -1200 / -1200 Intake: IV 400 / 400 Magnesium Sulfate / D5w 1 gm In 200 / 200 100 ml @ 50 mls/hr IV Q2H [facility] Rx#:[id number] Potassium Chloride / Wtr 20 meq 200 / 200 In 100 ml @ 50 mls/hr IV Q2H [facility] Rx#:[id number] Oral 1250 / 1350 100 / 1350 Output: Urine 1400 / 1400 Urine Amount (Catheter) / 3760 1999 / 3760 200 / 200 Temp Sensing Nuñez 425 / 3760 1999 / 3760 200 / 200 Other: Weight 153 kg Weight Measurement Method Built in [facility] Diagnostic Findings Telemetry: Ventricular pacing with premature beats Temporary pacemaker: He remains temporarily paced, I turned the rate down to 30 bpm and he continued to pace and he is still pacemaker dependent. PG Care Time/CCT Total # of Minutes Spent Total Time Spent with Patient: Total time spent is greater than 50% in coordination of care (as documented) at patient's floor/unit and/or counseling patient: Coding Level of Care Code 94884 SUB INP/OBS CARE 3/50MIN Diagnoses Nonischemic cardiomyopathy I42.8 Acute on chronic systolic congestive heart failure I50.23 Complete heart block I44.2
[2022-11-15] MEDS ORDERED: ceFAZolin 330 MG/ML 1 GM VIAL ONE (14:30)
[2022-11-15] MEDS ORDERED: MIDAZOLAM HCL 5 MG/ML 1 ML VIAL ONE (14:30)
[2022-11-15] MEDS ORDERED: fentaNYL citrate PF 100 MCG/2 ML VIAL ONE ×2 (14:30→16:06)
--- NOTE | 2022-11-15 15:03 | Pre Anesthesia Assessment ---
Date of Service November 15, 2022 Pre Sedation Assessment Vital Signs Temp Pulse Pulse Resp BP BP Pulse Ox 11/15/22 14:05 60 16 114/68 11/15/22 14:13 60 18 114/72 11/15/22 08:00 60 11/15/22 12:04 37.4 C 60 16 95/64 L 93 11/15/22 11:01 37.6 C H 60 20 130/68 92 11/15/22 10:01 37.9 C H 60 18 112/62 97 11/15/22 09:01 38.0 C H 60 24 127/63 89 L 11/15/22 08:01 37.9 C H 60 27 H 126/68 94 11/15/22 07:01 37.8 C H 60 24 153/72 H 92 11/15/22 12:16 60 18 94 11/15/22 09:31 11/15/22 07:21 60 18 96 11/15/22 06:30 37.7 C H 65 30 H 95 11/15/22 06:01 37.6 C H 60 25 H 96 11/15/22 06:01 151/70 H 11/15/22 06:00 37.6 C H 60 23 96 11/15/22 05:30 37.6 C H 60 23 95 11/15/22 05:01 144/71 H 11/15/22 05:01 37.7 C H 60 22 95 11/15/22 05:00 37.7 C H 60 21 96 11/15/22 04:30 37.5 C 60 27 H 97 11/15/22 04:00 37.3 C 60 20 97 11/15/22 04:00 124/72 11/15/22 03:30 37.3 C 60 21 96 11/15/22 03:01 37.3 C 60 20 95 11/15/22 03:01 122/68 11/15/22 03:00 37.3 C 60 22 94 11/15/22 02:30 37.3 C 60 22 96 11/15/22 03:41 60 24 96 11/15/22 02:00 37.3 C 60 22 94 11/15/22 02:00 126/65 11/15/22 01:01 37.4 C 60 23 93 11/15/22 01:01 116/67 11/15/22 01:00 37.4 C 60 21 95 11/15/22 00:14 70 28 H 96 11/15/22 00:14 70 28 H 96 11/15/22 00:01 120/74 11/15/22 00:01 37.4 C 60 26 H 93 11/15/22 00:00 37.4 C 60 26 H 91 11/14/22 23:30 37.5 C 60 25 H 92 11/14/22 23:00 37.5 C 60 28 H 96 11/14/22 23:00 124/71 11/14/22 22:00 37.8 C H 60 32 H 94 11/14/22 22:00 116/66 11/14/22 23:42 60 11/14/22 21:01 109/63 11/14/22 21:01 38.0 C H 60 30 H 11/14/22 21:00 38.0 C H 60 22 95 11/14/22 20:30 38.0 C H 60 25 H 94 11/14/22 20:01 134/98 11/14/22 20:01 60 26 H 90 11/14/22 20:00 60 21 95 11/14/22 21:10 11/14/22 19:30 60 22 94 11/14/22 19:02 118/70 11/14/22 19:02 60 32 H 90 11/14/22 19:02 118/70 11/14/22 19:00 60 33 H 93 11/14/22 18:30 60 28 H 95 11/14/22 19:31 60 20 96 11/14/22 18:00 60 27 H 145/73 H 94 11/14/22 17:00 60 19 142/57 H 93 11/14/22 16:00 60 22 153/107 H 95 11/14/22 15:06 60 22 132/66 96 O2 Del Method O2 Flow Rate FiO2 11/15/22 14:05 Nasal Cannula 4 11/15/22 14:13 Nasal Cannula 4 11/15/22 08:00 11/15/22 12:04 Nasal Cannula 4 11/15/22 11:01 11/15/22 10:01 11/15/22 09:01 11/15/22 08:01 11/15/22 07:01 Oxymask 4 11/15/22 12:16 Nasal Cannula 4 11/15/22 09:31 Oxymask 4 11/15/22 07:21 Oxymask 11/15/22 06:30 11/15/22 06:01 11/15/22 06:01 11/15/22 06:00 11/15/22 05:30 11/15/22 05:01 11/15/22 05:01 11/15/22 05:00 11/15/22 04:30 11/15/22 04:00 11/15/22 04:00 11/15/22 03:30 11/15/22 03:01 11/15/22 03:01 11/15/22 03:00 11/15/22 02:30 11/15/22 03:41 40 11/15/22 02:00 11/15/22 02:00 11/15/22 01:01 11/15/22 01:01 BiPAP 40 11/15/22 01:00 11/15/22 00:14 BiPAP 40 11/15/22 00:14 40 11/15/22 00:01 11/15/22 00:01 11/15/22 00:00 11/14/22 23:30 11/14/22 23:00 11/14/22 23:00 11/14/22 22:00 11/14/22 22:00 11/14/22 23:42 11/14/22 21:01 11/14/22 21:01 11/14/22 21:00 11/14/22 20:30 Oxymask 4 11/14/22 20:01 11/14/22 20:01 11/14/22 20:00 11/14/22 21:10 Oxymask 4 11/14/22 19:30 Oxymask 4 11/14/22 19:02 11/14/22 19:02 11/14/22 19:02 11/14/22 19:00 11/14/22 18:30 11/14/22 19:31 Oxymask 4 11/14/22 18:00 Oxymask 6 11/14/22 17:00 Nasal Cannula 5 11/14/22 16:00 Nasal Cannula 5 11/14/22 15:06 Oxymask 10 Cardiovascular RRR, no murmur, no edema Respiratory normal respiratory effort, lungs clear to auscultation Pre-Sedation Airway Assessment Smoking Status: Never smoker Short, Thick Neck: Yes Thyromental Distance: < 3.5 Finger Breadths Oral Cavity: + Dentures Mallampati Class: II ASA: ASA3 NPO Status Date of Last Intake of Fluids: 11/15/22 Time of Last Intake of Fluids: 22:00 Date of Last Intake of Solid Food: 11/14/22 Time of Last Intake of Solid Foods: 18:00 Procedure Planning Contraindications for Sedation: none Current Medications Reviewed: Yes Notes The planned sedation has been discussed with the patient. Informed Consent was obtained. I have identified the patient, determined the appropriateness of sedation and have assessed the patient immediately prior to the procedure. All medicine(s) and interventions are by my order.
[2022-11-15] MEDS ORDERED: MIDAZOLAM HCL 1 MG/ML 2ML VIAL ONE (16:06)
[2022-11-15] MEDS ORDERED: BACITRACIN OINT 0.9 GM PKT ONE (16:19)
[2022-11-15] MEDS ORDERED: diphenhydrAMINE 50 MG/ML VIAL ONE (16:26)
--- NOTE | 2022-11-15 17:34 | Electrophysiology Report ---
Date of Service November 15, 2022 Electrophysiology Procedure Electrophysiology Procedure Report Preoperative diagnosis: Complete heart block, cardiomyopathy, congestive heart failure Temporary pacemaker in place Postoperative diagnosis: Same Procedure: Left subclavian venogram Atrial and ventricular pacemaker lead implantation Coronary sinus angiography Attempted left ventricular lead implantation Dual-chamber pacemaker implantation Surgeon: Peter Stewart MD Estimated blood loss: 50 cc Complications: None Disposition: Cardiology recovery Procedure details: After obtaining informed consent for the procedure, the patient was brought to the laboratory and prepped and draped in the standard sterile manner. Dye was injected the left arm IV site to opacify the left subclavian vein. The subclavian vein was identified and found to be free of obstruction. The left prepectoral region was anesthetized with 1% lidocaine local anesthetic and left axillary venipuncture was performed by percutaneous technique and a guidewire placed through the left subclavian vein into the superior vena cava. The area was further infiltrated with 1% lidocaine local anesthetic and a 5 cm incision was made parallel to the left clavicle and 2 cm below it and carried down to the anterior pectoralis fascia. A pacemaker pocket was formed by blunt dissection anterior to the pectoralis fascia and a vancomycin soaked sponge was placed in the pocket. An 8.5 [place] Medtronic lead introducer was placed over the guidewire into the left subclavian vein, the dilator and guidewire were removed and a bipolar active fixation steroid tipped ventricular pacemaker lead was advanced through the introducer into the superior vena cava. A guidewire was placed through the introducer and the introducer was stripped from the lead and guidewire. An 8.5 [place] Medtronic lead introducer was placed over the guidewire into the left subclavian vein, the dilator and guidewire were removed and a bipolar active fixation steroid tipped atrial lead was advanced through the introducer into the superior vena cava. A guidewire was placed back through the introducer and the introducer was stripped from the lead and guidewire. Using a curved stylette the ventricular lead was advanced through the right ventricular outflow tract into the pulmonary artery and then using a straight stylette was positioned in the right ventricular apex. The screw was extended fixing the lead in position. Pacing and sensing thresholds were evaluated in bipolar configuration and are recorded on the implant data sheet. Diaphragmatic pacing was evaluated at full bipolar output as indicated on the data sheet. Using a curved stylette the atrial lead was positioned in the region of the atrial appendage and the screw extended fixing the lead in position. Pacing and sensing thresholds were evaluated in bipolar configuration and are recorded on the implant data sheet. Diaphragmatic pacing was evaluated at full bipolar output as indicated on the data sheet. Once the leads were in position they were attached to the anterior pectoralis fascia using 1 suture of 2-0 silk around each lead collar. The short guidewire was exchanged for a long guidewire and a Dee coronary sinus sheath was advanced to position in the right atrium. The curved obturator was placed through the sheath and using x-ray dye the os of the coronary sinus was identified. A guidewire was placed through the introducer into the coronary sinus and the [place] sheath was advanced toward the coronary sinus, however due to the patient's size it could not be advanced into the coronary sinus. Dye was injected in the coronary sinus using dilating catheter through the Dee sheath, with identified and a 0.014 inch guidewire could not be advanced into this vessel however it was not stable and therefore we could not be advanced. There did not appear to be in any other good target vessels and therefore the introducer system was removed. An additional suture of 2-0 silk was placed annita und each of the atrial and ventricular lead collars. Temporary pacemaker which was placed in the right IJ vein was removed under fluoroscopic guidance. The vancomycin-soaked sponge was removed from the pocket, hemostasis was obtained, a dual-chamber pacemaker was attached to the leads and placed in the pocket with the leads coiled beneath it. The incision was closed with a running double subcutaneous closure of 3-0 Vicryl absorbable suture, followed by running subcuticular skin closure of 4-0 Vicryl absorbable suture. Bacitracin ointment was placed on the incision and a pressure dressing applied. MNP Electrophysiology codes Indication for Procedure (1) Nonischemic cardiomyopathy: (2) Complete heart block: Pacing Procedure 1: Pacin Insert/Replace Pacer A & V Miscellaneous Procedures Procedure 1: EP Miscellaneous: 97700 Contrast injection for venography Procedure 2: EP Miscellaneous: 12811-38 Vengraphy, extremity Procedure 3: EP Miscellaneous: 56293-48 Venography, CS supevsion/interp PG Moderate Sedation Codes Moderate Sedation Codes Procedure 1: Sedation/Anesthesia: 17972 Mod Sedation by the same physician;Init15 Min Child Age 5 & Up Procedure 2: Sedation/Anesthesia: 57455 Mod Sedation by the same physician; Ea [id number] Minutes
[2022-11-15] MEDS ORDERED: ACETAMINOPHEN 325 MG TAB PO PRN (17:35)
[2022-11-15] MEDS ORDERED: ACETAMINOPHEN W/CODEINE #3 1 TAB PO PRN (17:35)
[2022-11-16] MEDS: ALBUT/IPRATROP 3MG/0.5MG NEB 3 ML VIAL NEB SCH ×4 (00:14→20:07)
[2022-11-16 04:39] LABS: Basophils # (auto) 0.05 K/uL (0-0.2); Basophils % (auto) 0.5 %; Eosinophils # (auto) 0.12 K/uL (0-0.50); Eosinophils % (auto) 1.2 %; Hemoglobin 14.3 g/dl (14.0-18.0); Immature Granulocytes # (auto) 0.04 K/uL (0.01-0.20); Immature Granulocytes % (auto) 0.4 %; Lymphocytes # (auto) 0.82 K/uL (1.2-3.4); Lymphocytes % (auto) 8.2 %; Mean Corpuscular Hemoglobin 32.9 pg (25.0-34.0); Mean Corpuscular Hgb Conc 34.9 g/dL (32.0-36.0); Mean Corpuscular Volume 94.3 fL (80.0-100.0); Monocytes # (auto) 1.31 K/uL (0.11-0.59); Monocytes % (auto) 13.2 %; Neutrophils % (auto) 76.5 %; Platelet Count 151 K/uL (130-400); RDW Coefficient of Variation 12.8 % (11.5-14.5); RDW Standard Deviation 44.6 fL (36.4-46.3); Red Blood Count 4.35 M/uL (4.70-6.10); White Blood Count 9.94 K/ul (4.8-10.8)
[2022-11-16 04:55] LABS: BUN Creatinine Ratio 21.6 (10-20); Creatinine Clr Calc Pharmacy 111.5 ml/min; Est GFR (African American) 89.6 ml/min; Est GFR (Non-African American) 77.3 ml/min; Phosphorus 3.1 mg/dl (2.5-4.9); Potassium 3.8 mmol/L (3.5-5.1)
--- NOTE | 2022-11-16 05:52 | Electrocardiogram Report ---
Test Reason : Blood Pressure : / mmHG Vent. Rate : 044 BPM Atrial Rate : 045 BPM P-R Int : 000 ms QRS Dur : 192 ms QT Int : 580 ms P-R-T Axes : 064 -68 140 degrees QTc Int : 495 ms Poor data quality, interpretation may be adversely affected Sinus tachycardia with A-V dissociation and Ventricular escape rhythm Left axis deviation Left bundle branch block Abnormal ECG When compared with ECG of 08-OCT-2019 12:46, Sinus rhythm is now with complete heart block Ventricular escape rhythm is now present Left bundle branch block has replaced Right bundle branch block Vent. rate has decreased BY 29 BPM Confirmed by Oskar Patel ([id number]) on 11/16/2022 5:51:59 AM Referred By: REFERRED SELF Confirmed By:Oskar Patel
--- NOTE | 2022-11-16 05:52 | Electrocardiogram Report ---
Test Reason : Blood Pressure : / mmHG Vent. Rate : 062 BPM Atrial Rate : 045 BPM P-R Int : 000 ms QRS Dur : 184 ms QT Int : 598 ms P-R-T Axes : 000 -02 -79 degrees QTc Int : 606 ms Ventricular-paced rhythm Sinus rhythm with complete heart block Abnormal ECG When compared with ECG of 13-NOV-2022 22:29, Electronic ventricular pacemaker has replaced Wide QRS rhythm Confirmed by Oskar Patel ([id number]) on 11/16/2022 5:52:39 AM Referred By: REFERRED SELF Confirmed By:Oskar Patel
--- NOTE | 2022-11-16 05:55 | Electrocardiogram Report ---
Test Reason : Blood Pressure : / mmHG Vent. Rate : 060 BPM Atrial Rate : 070 BPM P-R Int : 000 ms QRS Dur : 244 ms QT Int : 616 ms P-R-T Axes : 000 -42 198 degrees QTc Int : 616 ms Sinus rhythm with complete heart block and Ventricular-paced rhythm Abnormal ECG When compared with ECG of 13-NOV-2022 23:29, No significant change Confirmed by Oskar Patel ([id number]) on 11/16/2022 5:55:24 AM Referred By: REFERRED SELF Confirmed By:Oskar Patel
--- NOTE | 2022-11-16 07:33 | XRay Report ---
XR chest 2V PA/lateral HISTORY: Status post pacemaker placement. EXACT TIME ORDERED Evaluate for pneumothorax and l COMPARISON: Chest 11/14/2022. FINDINGS: Interval placement left-sided dual-chamber pacemaker. The leads appear intact. No pneumotho rax. No pleural effusions. The heart remains enlarged. There is mild central pulmonary vascular conge stion without overt edema. IMPRESSION: 1. Left-sided pacemaker. No pneumothorax. 2. Cardiomegaly and mild congestive change persists. ACT 112: Negative or not required by law. Electronically signed by: Naeem Guthrie M.D. 11/16/2022 7:32 AM
[2022-11-16] MEDS: ENOXAPARIN INJ 30 MG/0.3 ML SYR SQ SCH ×2 (08:56→22:08)
[2022-11-16] MEDS: lisinopril 5 MG TAB PO SCH (08:56)
[2022-11-16] MEDS: UMECLIDINIUM/VILANTEROL 62.5/25MCG 7 PUFFS/INHALER INH SCH (08:56)
[2022-11-16] MEDS: ASPIRIN 81 MG CHEW PO SCH (08:56)
[2022-11-16] MEDS: ATORVASTATIN 40 MG TAB PO SCH (08:56)
[2022-11-16] MEDS: guaiFENesin 600 MG TABCR PO SCH ×2 (08:56→22:08)
[2022-11-16] MEDS: TAMSULOSIN HCL 0.4 MG CAP PO SCH (08:56)
--- NOTE | 2022-11-16 09:05 | Cardiology Progress Note ---
Date of Service November 16, 2022 Assessment & Plan (1) Status post placement of cardiac pacemaker: Plan (1) Status post placement of cardiac pacemaker: Plan 1. Postop day #1 pacemaker: The device is working well, leads are in good position and he feels well. He is stable for discharge from the pacemaker standpoint at any time. I am going to arrange outpatient pacemaker follow-up for 1 month, wound check in several days if he goes home soon. 2. Congestive heart failure: He should be scheduled for heart failure clinic in 1 to 2 weeks for fluid management and medication adjustments. I am going to adjust his medications today. Admission and Anticipated Discharge Date Admission Date: November 14, 2022 Subjective Patient is feeling well today, no cardiovascular complaints. No incisional discomfort, no chest discomfort, minimal shortness of breath. Physical Exam Physical Exam: The incision is clean and dry, there is no erythema or swelling. Cardiac rhythm is regular with no rub Lungs are essentially clear Results & Data Vital Signs (Past 12 Hours) Vital Signs Temp Pulse Pulse Resp BP Pulse Ox O2 Del Method 11/16/22 08:40 Room Air 11/16/22 08:00 73 11/16/22 06:52 85 18 91 Room Air 11/16/22 04:19 37.2 C 83 28 H 93 11/16/22 04:19 149/93 H 11/16/22 00:20 37.2 C 79 17 97 11/16/22 00:20 125/83 11/16/22 00:15 18 94 Nasal Cannula 11/15/22 22:35 76 13 94 O2 Flow Rate FiO2 11/16/22 08:40 11/16/22 08:00 11/16/22 06:52 11/16/22 04:19 11/16/22 04:19 11/16/22 00:20 11/16/22 00:20 11/16/22 00:15 4 11/15/22 22:35 40 Laboratory Results CBC 11/16/22 Range/Units 04:24 WBC 9.94 (4.8-10.8) K/ul RBC 4.35 L (4.70-6.10) M/uL Hgb 14.3 (14.0-18.0) g/dl Hct 41.0 L (42.0-52.0) % Plt Count 151 (130-400) K/uL Neut # (Auto) 7.60 H (1.40-6.50) K/uL Lymph # (Auto) 0.82 L (1.2-3.4) K/uL [place] # (Auto) 1.31 H (0.11-0.59) K/uL Eos # (Auto) 0.12 (0-0.50) K/uL Baso # (Auto) 0.05 (0-0.2) K/uL Comprehensive Metabolic Panel 11/16/22 Range/Units 04:24 Sodium 137 (136-145) mmol/L Potassium 3.8 (3.5-5.1) mmol/L Chloride 100 (98-107) mmol/L Carbon Dioxide 31 (21-32) mmol/L BUN 22 (6-23) mg/dl Creatinine 1.02 (0.6-1.4) mg/dl Glucose 101 H (70-99(Fasting)) mg/dl Calcium 9.0 (8.5-10.1) mg/dl Intake and Output 11/15/22 11/16/22 11/16/22 22:59 06:59 14:59 Intake Total 1000 / 1400 Output Total 975 / 2875 300 / 2875 Balance 25 / -1475 -300 / -1475 Intake: Oral 1000 / 1000 Output: Urine 225 / 1625 Urine Amount (Catheter) 750 / 1250 300 / 1250 Temp Sensing Nuñez 750 / 1250 300 / 1250 # Bowel Movements 0 / 0 Other: Weight 150.5 kg Weight Measurement Method Standing Scale Diagnostic Findings Postop ECG: Appropriate dual-chamber pacemaker with left bundle paced complex Telemetry: Normal pacemaker function with ventricular pacing throughout, some PVCs Chest x-ray: Good lead position, no pneumothorax Pacemaker evaluation: Excellent pacing and sensing characteristics, pacer dependent today PG Care Time/CCT Total # of Minutes Spent Total Time Spent with Patient: Total time spent is greater than 50% in coordination of care (as documented) at patient's floor/unit and/or counseling patient: Coding Level of Care Code 46926 Post Operative Follow-Up Diagnoses Status post placement of cardiac pacemaker Z95.0 CPT Codes Dual Lead Pacemaker System - [id number] ([id number])
[2022-11-16] MEDS ORDERED: METOPROLOL SUCC 25MG EXT REL TAB PO SCH (09:30)
[2022-11-16] MEDS: FUROSEMIDE 20 MG TAB PO SCH (09:38)
--- NOTE | 2022-11-16 09:45 | Hospitalist Progress Note ---
Date of Service November 16, 2022 Assessment & Plan (1) Acute respiratory failure with hypoxia: Plan: Likely secondary to acute on chronic systolic CHF Extubated on 11/14 Please see below for management of CHF Sputum culture grew Haemophilus influenzae Patient is not showing any signs of pneumonia with no fever, leukocytosis, shortness of breath or cough. Will not treat at this time but will monitor clinically (2) Acute on chronic systolic congestive heart failure: Plan: Reported EF approximately 18% in the past. No echocardiogram report on file. TTE 11/14 showed EF of 35%, global hypokinesis and severe concentric LVH Most likely triggered by bradycardia and complete heart block. Please see management for complete heart block below Was diuresed with IV Lasix, with good clinical and diuretic response Started 20 mg of p.o. Lasix today Renal function tolerating with stable creatinine Underwent cardiac catheterization 11/14 that showed clean coronaries (3) Complete heart block: Plan: Dual-chamber pacemaker placed on 11/15 EP cardiology on board Continue monitoring on telemetry Lyme's disease negative. TSH normal (4) Nonischemic cardiomyopathy: Plan: Patient had a cardiac catheterization that showed normal coronaries Echocardiogram showed EF of 35% Diuresis as needed. Now on p.o. Lasix 20 mg Will start guideline directed medical therapy once more stable Was started on Coreg 3.125, Entresto today Lisinopril discontinued as now on Entresto (5) HTN (hypertension): Plan: Patient was started on lisinopril 5 mg p.o. but now switched to Entresto and Coreg Also on 20 mg of p.o. Lasix Monitor blood pressure on current medications (6) Hyperlipidemia: Plan: Continue statin (7) Sleep apnea: Plan: Patient can bring his own CPAP to be used at night (8) Status post placement of cardiac pacemaker: Plan: Placed 11/15 Admission and Anticipated Discharge Date Admission Date: November 14, 2022 Subjective Patient feels better overall. No chest pain or shortness of breath. Lying in bed without feeling short of breath. Pacemaker was placed yesterday. Review of Systems Review of Systems: All systems reviewed & are unremarkable except as noted in Subjective Physical Exam Physical Exam: General: Awake, conversant, obese Heart: S1, S2/regular rate and rhythm, no murmur rubs or gallops. Dressing over left side of his chest where pacemaker was placed. Lungs: Clear to auscultation bilaterally. Normal effort Abdomen: Soft/nontender/nondistended. No hepatosplenomegaly Extremities: No clubbing/cyanosis. No edema Behavior: Appropriate, cooperative Results & Data Results & Data Vital Signs (Past 12 Hours) Vital Signs Temp Pulse Pulse Resp BP Pulse Ox O2 Del Method 11/16/22 08:05 38.0 C H 96 H 21 124/92 92 Room Air 11/16/22 08:40 Room Air 11/16/22 08:00 73 11/16/22 06:52 85 18 91 Room Air 11/16/22 04:19 37.2 C 83 28 H 93 11/16/22 04:19 149/93 H 11/16/22 00:20 37.2 C 79 17 97 11/16/22 00:20 125/83 11/16/22 00:15 18 94 Nasal Cannula 11/15/22 22:35 76 13 94 O2 Flow Rate FiO2 11/16/22 08:05 11/16/22 08:40 11/16/22 08:00 11/16/22 06:52 11/16/22 04:19 11/16/22 04:19 11/16/22 00:20 11/16/22 00:20 11/16/22 00:15 4 11/15/22 22:35 40 Laboratory Results Abnormal lab results 11/15/22 11/16/22 11/16/22 Range/Units 17:55 04:24 04:24 RBC 4.35 L (4.70-6.10) M/uL Hct 41.0 L (42.0-52.0) % Neut # (Auto) 7.60 H (1.40-6.50) K/uL Lymph # (Auto) 0.82 L (1.2-3.4) K/uL [place] # (Auto) 1.31 H (0.11-0.59) K/uL BUN/Creatinine Ratio 21.6 H (10-20) Glucose 101 H (70-99(Fasting)) mg/dl POC Glucose 118 H (70-99) mg/dl 11/16/22 Range/Units 07:25 RBC (4.70-6.10) M/uL Hct (42.0-52.0) % Neut # (Auto) (1.40-6.50) K/uL Lymph # (Auto) (1.2-3.4) K/uL [place] # (Auto) (0.11-0.59) K/uL BUN/Creatinine Ratio (10-20) Glucose (70-99(Fasting)) mg/dl POC Glucose 118 H (70-99) mg/dl Diagnostic Findings Chest X-Ray 11/16/22 07:00 XR chest 2V PA/lateral HISTORY: Status post pacemaker placement. EXACT TIME ORDERED Evaluate for pneumothorax and l COMPARISON: Chest 11/14/2022. FINDINGS: Interval placement left-sided dual-chamber pacemaker. The leads appear intact. No pneumothorax. No pleural effusions. The heart remains enlarged. There is mild central pulmonary vascular congestion without overt edema. IMPRESSION: 1. Left-sided pacemaker. No pneumothorax. 2. Cardiomegaly and mild congestive change persists. ACT 112: Negative or not required by law. Electronically signed by: Naeem Guthrie M.D. 11/16/2022 7:32 AM PG Care Time/CCT Total # of Minutes Spent Total Time Spent: 35 Total Time Spent with Patient: I spent 35 minutes in the care of this patient. The time was spent in talking to the patient, nurse, care management team, reviewing the chart, formulating plan and placing the orders accordingly. Coding Level of Care Code 01876 SUB INP/OBS CARE 2/35MIN Diagnoses Acute respiratory failure with hypoxia J96.01 Acute on chronic systolic congestive heart failure I50.23 Complete heart block I44.2 Nonischemic cardiomyopathy I42.8 HTN (hypertension) I10 Hyperlipidemia E78.5 Sleep apnea G47.30 Status post placement of cardiac pacemaker Z95.0
[2022-11-16] MEDS ORDERED: carvediloL 3.125 MG TAB PO SCH (21:00)
[2022-11-17] MEDS: ALBUT/IPRATROP 3MG/0.5MG NEB 3 ML VIAL NEB SCH ×4 (00:21→19:33)
--- NOTE | 2022-11-17 08:13 | Cardiology Progress Note ---
Date of Service November 17, 2022 Assessment & Plan (1) Status post placement of cardiac pacemaker: (2) Nonischemic cardiomyopathy: (3) HBP (high blood pressure): Plan (1) Status post placement of cardiac pacemaker: Plan 1. Postop day #2 pacemaker: The device is working well and he feels well. He is stable for discharge from the pacemaker standpoint at any time. I am going to arrange outpatient pacemaker follow-up for 1 month, wound check tomorrow if he goes home today. 2. Congestive heart failure: He should be scheduled for heart failure clinic in 1 to 2 weeks for fluid management and medication adjustments. I am going to adjust his medications today. 3. Cardiomyopathy: I would like to titrate his medications to carvedilol 50 mg twice a day and Entresto 200 mg combined dose over time, this will need to be done gradually. I suspect his blood pressure will hold. I will repeat the echocardiogram in 3 to 6 months to see whether his ejection fraction has changed. 4. Hypertension: His blood pressure has become very high, perhaps from recovery from his illness. This will allow us to titrate his medications more quickly and I am going to double his carvedilol today and increase his Entresto to the middle dose (which he will be starting today). If his blood pressure is still elevated at the end of the day we can increase his evening carvedilol. Admission and Anticipated Discharge Date Admission Date: November 14, 2022 Subjective He is sitting at his bedside today eating breakfast. He feels well without cardiovascular complaints. He has minor incisional discomfort but only when he touches the site. Physical Exam Physical Exam: The site is bandaged and I did not remove the dressing, that can be removed tomorrow. No obvious swelling, expected tenderness. Results & Data Vital Signs (Past 12 Hours) Vital Signs Temp Pulse Pulse Resp BP Pulse Ox O2 Del Method 11/17/22 07:52 36.5 C 78 18 171/98 H 91 Room Air 11/17/22 06:59 78 18 93 Room Air 11/17/22 02:46 36.6 C 83 20 162/96 H 93 Room Air 11/16/22 22:01 83 11/16/22 23:13 81 18 155/77 H 93 CPAP 11/16/22 22:05 Room Air Laboratory Results Intake and Output 11/16/22 11/17/2211/17/23 22:59 06:59 14:59 Intake Total 240 / 360 120 / 360 Output Total 850 / 1201 350 / 1201 Balance -610 / -841 -230 / -841 - Intake: Oral 240 / 360 120 / 360 Output: Urine Amount (Catheter) 850 / 1200 350 / 1200 Temp Sensing Nuñez 850 / 1200 350 / 1200 # Bowel Movements Other: Weight 151.3 kg Weight Measurement Method Standing Scale Diagnostic Findings Telemetry: Ventricular pacing throughout. PG Care Time/CCT Total # of Minutes Spent Total Time Spent with Patient: Total time spent is greater than 50% in coordination of care (as documented) at patient's floor/unit and/or counseling patient: Coding Level of Care Code 77900 SUB INP/OBS CARE 2/35MIN Diagnoses Status post placement of cardiac pacemaker Z95.0 Nonischemic cardiomyopathy I42.8 HBP (high blood pressure) I10 Hypertension type: primary hypertension (3) HBP (high blood pressure) Hypertension type: primary hypertension Qualified Code(s): I10 - Essential (primary) hypertension
[2022-11-17] MEDS ORDERED: VALSARTAN/SACUBITRIL 26/24MG TAB PO SCH (09:00)
[2022-11-17] MEDS ORDERED: carvediloL 6.25 MG TAB PO SCH (09:00)
[2022-11-17 09:29] LABS: Calcium 9.5 mg/dl (8.5-10.1); Est GFR (African American) 91.8 ml/min; Est GFR (Non-African American) 79.2 ml/min; Magnesium 1.9 mg/dl (1.7-2.4); Phosphorus 2.5 mg/dl (2.5-4.9); Potassium 3.7 mmol/L (3.5-5.1)
[2022-11-17] MEDS: carvediloL 12.5 MG TAB PO SCH ×2 (09:29→20:48)
[2022-11-17] MEDS: guaiFENesin 600 MG TABCR PO SCH ×2 (09:29→20:48)
[2022-11-17] MEDS: VALSARTAN/SACUBITRIL 51/49 MG TAB PO SCH ×2 (09:29→20:48)
[2022-11-17] MEDS: FUROSEMIDE 20 MG TAB PO SCH (09:30)
[2022-11-17] MEDS: TAMSULOSIN HCL 0.4 MG CAP PO SCH (09:30)
[2022-11-17] MEDS: ASPIRIN 81 MG CHEW PO SCH (09:30)
[2022-11-17] MEDS: ENOXAPARIN INJ 30 MG/0.3 ML SYR SQ SCH ×2 (09:30→20:48)
[2022-11-17] MEDS: ATORVASTATIN 40 MG TAB PO SCH (09:30)
[2022-11-17] MEDS: UMECLIDINIUM/VILANTEROL 62.5/25MCG 7 PUFFS/INHALER INH SCH (09:31)
[2022-11-17] MEDS ORDERED: ATROPINE SULFATE 0.1 MG/ML 10ML SYR IV ONE (11:15)
--- NOTE | 2022-11-17 16:24 | Hospitalist Progress Note ---
Date of Service November 17, 2022 Assessment & Plan (1) Acute respiratory failure with hypoxia: Plan: Likely secondary to acute on chronic systolic CHF Extubated on 11/14 Please see below for management of CHF Sputum culture grew Haemophilus influenzae Patient is not showing any signs of pneumonia with no fever, leukocytosis, shortness of breath or cough. Will not treat at this time but will monitor clinically (2) Acute on chronic systolic congestive heart failure: Plan: Reported EF approximately 18% in the past. No echocardiogram report on file. TTE 11/14 showed EF of 35%, global hypokinesis and severe concentric LVH Most likely triggered by bradycardia and complete heart block. Please see management for complete heart block below Was diuresed with IV Lasix, with good clinical and diuretic response Started 20 mg of p.o. Lasix today Renal function tolerating with stable creatinine Underwent cardiac catheterization 11/14 that showed clean coronaries Discontinue Nuñez catheter (3) Complete heart block: Plan: Dual-chamber pacemaker placed on 11/15 EP cardiology on board Continue monitoring on telemetry Lyme's disease negative. TSH normal (4) Nonischemic cardiomyopathy: Plan: Patient had a cardiac catheterization that showed normal coronaries Echocardiogram showed EF of 35% Diuresis as needed. Now on p.o. Lasix 20 mg Will start guideline directed medical therapy once more stable Was started on Coreg 3.125, Entresto Blood pressure is high and thus the dose of Coreg was increased. Entresto was increased as well. (5) HTN (hypertension): Plan: Patient was started on lisinopril 5 mg p.o. but now switched to Entresto and Coreg Also on 20 mg of p.o. Lasix The dose of Entresto and Coreg were increased. (6) Hyperlipidemia: Plan: Continue statin (7) Sleep apnea: Plan: Patient can bring his own CPAP to be used at night (8) Status post placement of cardiac pacemaker: Plan: Placed 11/15 Admission and Anticipated Discharge Date Admission Date: November 14, 2022 Subjective Patient feels well. Feels weak overall. Complaining that the Nuñez catheter is bothering him. Review of Systems Review of Systems: All systems reviewed & are unremarkable except as noted in Subjective Physical Exam Physical Exam: General: Awake, conversant, obese Heart: S1, S2/regular rate and rhythm, no murmur rubs or gallops. Dressing over left side of his chest where pacemaker was placed. Lungs: Clear to auscultation bilaterally. Normal effort Abdomen: Soft/nontender/nondistended. No hepatosplenomegaly Extremities: No clubbing/cyanosis. No edema Behavior: Appropriate, cooperative Results & Data Results & Data Vital Signs (Past 12 Hours) Vital Signs Temp Pulse Resp BP Pulse Ox O2 Del Method 11/17/22 15:48 36.3 C L 80 18 170/91 H 95 CPAP 11/17/22 13:25 72 16 93 Room Air, CPAP 11/17/22 08:00 Room Air 11/17/22 11:12 36.8 C 84 18 154/82 H 94 Room Air 11/17/22 07:52 36.5 C 78 18 171/98 H 91 Room Air 11/17/22 06:59 78 18 93 Room Air PG Care Time/CCT Total # of Minutes Spent Total Time Spent with Patient: Total time spent is greater than 50% in coordination of care (as documented) at patient's floor/unit and/or counseling patient: Coding Level of Care Code 52960 SUB INP/OBS CARE 2/35MIN Diagnoses Acute respiratory failure with hypoxia J96.01 Acute on chronic systolic congestive heart failure I50.23 Complete heart block I44.2 Nonischemic cardiomyopathy I42.8 HTN (hypertension) I10 Hyperlipidemia E78.5 Sleep apnea G47.30 Status post placement of cardiac pacemaker Z95.0
--- NOTE | 2022-11-18 00:05 | Electrocardiogram Report ---
Test Reason : Blood Pressure : / mmHG Vent. Rate : 076 BPM Atrial Rate : 076 BPM P-R Int : 152 ms QRS Dur : 174 ms QT Int : 534 ms P-R-T Axes : 068 267 086 degrees QTc Int : 601 ms Atrial-sensed ventricular-paced rhythm Abnormal ECG When compared with ECG of 14-NOV-2022 03:21, Atrial sensing is now present Vent. rate has increased BY 30 BPM Confirmed by Oskar Patel ([id number]) on 11/18/2022 12:04:40 AM Referred By: REFERRED SELF Confirmed By:Oskar Patel
--- NOTE | 2022-11-18 00:19 | Electrocardiogram Report ---
Test Reason : Blood Pressure : / mmHG Vent. Rate : 081 BPM Atrial Rate : 081 BPM P-R Int : 150 ms QRS Dur : 168 ms QT Int : 500 ms P-R-T Axes : 057 -77 100 degrees QTc Int : 580 ms Atrial-sensed ventricular-paced rhythm Abnormal ECG When compared with ECG of 15-NOV-2022 17:58, Vent. rate has decreased BY 9 BPM Confirmed by Oskar Patel ([id number] on 11/18/2022 12:19:17 AM Referred By: REFERRED SELF Confirmed By:Oskar Patel
[2022-11-18] MEDS: ALBUT/IPRATROP 3MG/0.5MG NEB 3 ML VIAL NEB SCH ×4 (00:35→19:13)
[2022-11-18 07:49] LABS: BUN Creatinine Ratio 22.1 (10-20); Calcium 9.1 mg/dl (8.5-10.1); Est GFR (African American) 106.2 ml/min; Est GFR (Non-African American) 91.6 ml/min; Magnesium 1.9 mg/dl (1.7-2.4); Phosphorus 3.2 mg/dl (2.5-4.9); Potassium 3.9 mmol/L (3.5-5.1)
[2022-11-18] MEDS: VALSARTAN/SACUBITRIL 51/49 MG TAB PO SCH ×2 (08:07→20:23)
[2022-11-18] MEDS: carvediloL 12.5 MG TAB PO SCH (08:08)
[2022-11-18] MEDS: ATORVASTATIN 40 MG TAB PO SCH (08:08)
[2022-11-18] MEDS: TAMSULOSIN HCL 0.4 MG CAP PO SCH (08:08)
[2022-11-18] MEDS: FUROSEMIDE 20 MG TAB PO SCH (08:08)
[2022-11-18] MEDS: guaiFENesin 600 MG TABCR PO SCH ×2 (08:08→20:23)
[2022-11-18] MEDS: UMECLIDINIUM/VILANTEROL 62.5/25MCG 7 PUFFS/INHALER INH SCH (08:09)
[2022-11-18] MEDS: ENOXAPARIN INJ 30 MG/0.3 ML SYR SQ SCH ×2 (08:09→20:20)
[2022-11-18] MEDS ORDERED: carvediloL 12.5 MG TAB PO STA (08:29)
[2022-11-18] MEDS: ASPIRIN 81 MG CHEW PO SCH (09:40)
[2022-11-18] MEDS: AMOXICILLIN/CLAVULANATE 875 MG TAB PO SCH ×2 (11:53→16:47)
--- NOTE | 2022-11-18 14:25 | Hospitalist Progress Note ---
Date of Service November 18, 2022 Assessment & Plan (1) Acute respiratory failure with hypoxia: Plan: Likely secondary to acute on chronic systolic CHF Extubated on 11/14 Please see below for management of CHF Check ambulatory O2 sats for likely discharge tomorrow (2) Acute on chronic systolic congestive heart failure: Plan: Reported EF approximately 18% in the past. No echocardiogram report on file. TTE 11/14 showed EF of 35%, global hypokinesis and severe concentric LVH Most likely triggered by bradycardia and complete heart block. Please see management for complete heart block below Was diuresed with IV Lasix, with good clinical and diuretic response Started 20 mg of p.o. Lasix Appears euvolemic Renal function tolerating with stable creatinine Underwent cardiac catheterization 11/14 that showed clean coronaries Discontinue Nuñez catheter (3) Complete heart block: Plan: Dual-chamber pacemaker placed on 11/15 EP cardiology on board Continue monitoring on telemetry Lyme's disease negative. TSH normal (4) Nonischemic cardiomyopathy: Plan: Patient had a cardiac catheterization that showed normal coronaries Echocardiogram showed EF of 35% Diuresis as needed. Now on p.o. Lasix 20 mg Started guideline directed medical therapy Was started on Coreg , Entresto Blood pressure is high and thus the dose of Coreg was increased. (5) HTN (hypertension): Plan: Patient was started on lisinopril 5 mg p.o. but now switched to Entresto and Coreg Also on 20 mg of p.o. Lasix The dose of Coreg were increased again today. (6) Hyperlipidemia: Plan: Continue statin (7) Sleep apnea: Plan: Patient can bring his own CPAP to be used at night (8) Status post placement of cardiac pacemaker: Plan: Placed 11/15 (9) Haemophilus influenzae laryngotracheobronchitis: Plan: Sputum culture grew Haemophilus influenzae when the patient was intubated Patient is not showing any signs of pneumonia with no fever, leukocytosis, shortness of breath. Complaining of cough with productive sputum today Start Augmentin to treat haemophilus bronchitis Admission and Anticipated Discharge Date Admission Date: November 14, 2022 Subjective Patient feels well overall. Denies chest pain or shortness of breath. Coughing quite a bit. Bringing up phlegm. Review of Systems Review of Systems: All systems reviewed & are unremarkable except as noted in Subjective Physical Exam Physical Exam: General: Awake, conversant, obese Heart: S1, S2/regular rate and rhythm, no murmur rubs or gallops. Healing scar over the left side of his chest where pacemaker was placed. Lungs: Clear to auscultation bilaterally. Normal effort Abdomen: Soft/nontender/nondistended. No hepatosplenomegaly Extremities: No clubbing/cyanosis. No edema Behavior: Appropriate, cooperative Results & Data Results & Data Vital Signs (Past 12 Hours) Vital Signs Temp Pulse Pulse Pulse Resp BP Pulse Ox 11/18/22 13:35 80 18 96 11/18/22 06:01 81 11/18/22 12:35 36.6 C 78 18 129/76 98 11/18/22 08:00 11/18/22 08:47 36.6 C 76 18 132/86 92 11/18/22 07:00 85 18 94 11/18/22 02:59 36.7 C 81 18 144/85 H 93 11/18/22 02:48 18 95 O2 Del Method O2 Flow Rate 11/18/22 13:35 Room Air 11/18/22 06:01 11/18/22 12:35 Room Air 11/18/22 08:00 Room Air 11/18/22 08:47 Room Air 11/18/22 07:00 Room Air 11/18/22 02:59 BiPAP 11/18/22 02:48 CPAP 3 PG Care Time/CCT Total # of Minutes Spent Total Time Spent with Patient: Total time spent is greater than 50% in coordination of care (as documented) at patient's floor/unit and/or counseling patient: Coding Level of Care Code 34122 SUB INP/OBS CARE 2/35MIN Diagnoses Acute respiratory failure with hypoxia J96.01 Acute on chronic systolic congestive heart failure I50.23 Complete heart block I44.2 Nonischemic cardiomyopathy I42.8 HTN (hypertension) I10 Hyperlipidemia E78.5 Sleep apnea G47.30 Status post placement of cardiac pacemaker Z95.0 Haemophilus influenzae laryngotracheobronchitis J40; B96.3
--- NOTE | 2022-11-18 16:20 | Cardiology Progress Note ---
Date of Service November 18, 2022 Assessment & Plan (1) Status post placement of cardiac pacemaker: (2) Nonischemic cardiomyopathy: (3) HBP (high blood pressure): Plan (1) Status post placement of cardiac pacemaker: Plan 1. Permanent pacemaker. Incision appears to be well-healed. 2. Congestive heart failure: He seems to be diuresing well on his current regimen which includes 20 mg of Lasix daily. He should be scheduled for heart failure clinic in 1 to 2 weeks for fluid management and medication adjustments. 3. Cardiomyopathy: I will continue his current dose of carvedilol and Entresto. He would also be a good candidate for an SGLT2 inhibitor but initiation could be deferred to the outpatient setting. 4. Hypertension: Improved Provided he is ambulatory without significant symptoms it would be reasonable to consider discharge from a cardiovascular standpoint. Make arrange follow-up in our heart failure an outpatient clinic for evaluation of his symptoms and pacemaker. Admission and Anticipated Discharge Date Admission Date: November 14, 2022 Subjective This morning the patient's primary concern was a cough. This apparently was present prior to admission. His breathing overall has improved significantly. He has been ambulatory to the bathroom and back without significant dizziness. No sense of palpitation. No symptoms of chest pain. Review of Systems Review of Systems: Some paresthesias involving the right thigh. Longstanding in nature but more frequent recently Physical Exam Physical Exam: The patient is alert and oriented. Mood and affect appeared normal. He answered all questions appropriately. HEENT: Pupils are equal and reactive to light and accommodation. Extraocular movements are intact. The sclerae are anicteric. Neuro: Cranial nerves intact Lungs: Clear to auscultation bilaterally. He has good air movement without use of accessory muscles. No rales wheezes or rhonchi. Cardiac: Heart demonstrates a regular rate and rhythm. Normal S1 and S2. No murmurs on examination. Pulses: The patient has palpable radial pulses bilaterally that are equal in intensity Extremities: There was no evidence of hypoperfusion. There is no cyanosis or clubbing. Skin: I did not appreciate any rashes on examination today. Atrial fibrillation Results & Data Vital Signs (Past 12 Hours) Vital Signs Temp Pulse Pulse Pulse Pulse Pulse Pulse 11/18/22 14:10 79 11/18/22 15:11 36.5 C 76 11/18/22 14:56 88 84 80 11/18/22 13:35 80 11/18/22 06:01 81 11/18/22 12:35 36.6 C 78 11/18/22 08:00 11/18/22 08:47 36.6 C 76 11/18/22 07:00 85 Resp Resp Resp Resp BP Pulse Ox Pulse Ox 11/18/22 14:10 11/18/22 15:11 18 138/88 95 11/18/22 14:56 20 18 18 97 11/18/22 13:35 18 96 11/18/22 06:01 11/18/22 12:35 18 129/76 98 11/18/22 08:00 11/18/22 08:47 18 132/86 92 11/18/22 07:00 18 94 Pulse Ox Pulse Ox O2 Del Method 11/18/22 14:10 11/18/22 15:11 Room Air 11/18/22 14:56 96 95 11/18/22 13:35 Room Air 11/18/22 06:01 11/18/22 12:35 Room Air 11/18/22 08:00 Room Air 11/18/22 08:47 Room Air 11/18/22 07:00 Room Air Laboratory Results Abnormal Lab Results 11/17/22 11/18/22 19:56 06:55 Sodium 138 Potassium 3.9 Chloride 102 Carbon Dioxide 31 Anion Gap 5 BUN 19 Creatinine 0.86 Est Cr Clr Drug Dosing 131.0 Est GFR ( Amer) 106.2 Est GFR (Non-Af Amer) 91.6 BUN/Creatinine Ratio 22.1 H Glucose 111 H POC Glucose 123 H Calcium 9.1 Phosphorus 3.2 Magnesium 1.9 PG Care Time/CCT Total # of Minutes Spent Total Time Spent with Patient: Total time spent is greater than 50% in coordination of care (as documented) at patient's floor/unit and/or counseling patient: Coding Level of Care Code 61135 SUB INP/OBS CARE 2/35MIN Diagnoses Status post placement of cardiac pacemaker Z95.0 Nonischemic cardiomyopathy I42.8 HBP (high blood pressure) I10 Hypertension type: primary hypertension (3) HBP (high blood pressure) Hypertension type: primary hypertension Qualified Code(s): I10 - Essential (primary) hypertension
[2022-11-18] MEDS: carvediloL 25 MG TAB PO SCH (20:22)
[2022-11-19] MEDS: ALBUT/IPRATROP 3MG/0.5MG NEB 3 ML VIAL NEB SCH ×2 (00:25→07:19)
[2022-11-19 03:04] VITALS: TEMP 98.1
[2022-11-19 07:31] LABS: Calcium 9.4 mg/dl (8.5-10.1); Creatinine Clr Calc Pharmacy 129.6 ml/min; Est GFR (African American) 105.7 ml/min; Est GFR (Non-African American) 91.2 ml/min; Phosphorus 3.3 mg/dl (2.5-4.9)
[2022-11-19 07:59] VITALS: O2SAT 93
[2022-11-19] MEDS: AMOXICILLIN/CLAVULANATE 875 MG TAB PO SCH (08:13)
[2022-11-19] MEDS: ATORVASTATIN 40 MG TAB PO SCH (08:16)
[2022-11-19] MEDS: carvediloL 25 MG TAB PO SCH (08:17)
[2022-11-19] MEDS: FUROSEMIDE 20 MG TAB PO SCH (08:18)
[2022-11-19] MEDS: guaiFENesin 600 MG TABCR PO SCH (08:19)
[2022-11-19] MEDS: TAMSULOSIN HCL 0.4 MG CAP PO SCH (08:21)
[2022-11-19] MEDS: VALSARTAN/SACUBITRIL 51/49 MG TAB PO SCH (08:22)
[2022-11-19] MEDS: UMECLIDINIUM/VILANTEROL 62.5/25MCG 7 PUFFS/INHALER INH SCH (08:29)
[2022-11-19] MEDS: ENOXAPARIN INJ 30 MG/0.3 ML SYR SQ SCH (08:30)
[2022-11-19] MEDS: ASPIRIN 81 MG CHEW PO SCH (09:31)
--- NOTE | 2022-11-19 09:56 | Discharge Summary ---
Date of Service November 19, 2022 Admission HPI Per Admitting Provider 62 y/o male w/ PMHx of CAD (NSTEMI 2010 w/ acute CHF), nonischemic cardiomyopathy, diet-controlled DM2, BPH, HTN, HLD, current tobacco use, morbid obesity, ANT on cpap who presented via EMS for a heart alert. Patient had called EMS for severe SOB that started the day prior. He was hypertensive to 210s systolic. He has existing bifasicular disease and developed new LBBB followed by bradycardia and complete heart block. He was paced externally. He received 3 nitro in the field. He was noted to be in hypoxic resp failure and upon arrival to the ED, was intubated and brought to the laboratory technician. The coronaries were esse ntially clean. A transvenous pacer was placed. Patient received total of 2 doses of IV Lasix 40mg, w/ pulmonary edema on cxr. Nitro drip was started and vasopressor support provided. Per chart review. 2016 cardiac cath w/ luminal disease in several vessels. Hx limited to chart review as patient on mechanical vent and back from laboratory technician at time of my exam. Admission Exam Per Admitting Provider General: Sedated. On vent. HEENT: Atraumatic, normocephalic. Pulm: CTAB anteriorly. -wheezes, -rales, -rhonchi. Cardiac: RRR, -mrg. 2+ bilat lower extremity edema. Abdominal: Nontender, nondistended, soft. : + walters Integ: Warm, dry, intact. No erythema of peripheral IVs or R neck site. Principal Diagnosis Complete heart block leading to acute on chronic systolic congestive heart failure causing acute hypoxic respiratory failure Discharge Exam General: Awake, conversant, obese Heart: S1, S2/regular rate and rhythm, no murmur rubs or gallops. Healing scar over the left side of his chest where pacemaker was placed. Lungs: Clear to auscultation bilaterally. Normal effort Abdomen: Soft/nontender/nondistended. No hepatosplenomegaly Extremities: No clubbing/cyanosis. No edema Behavior: Appropriate, cooperative Discharge Data Allergies Allergy/AdvReac Type Severity Reaction Status Date / Time No Known Allergies Allergy OTHER Verified 11/13/22 22:29 Consultations 11/14/22 00:10 Consult Ripsawyer Routine Procedures Performed Operation Date: 11/15/22 14:30 Actual Procedures p Pacer with A/V Leads (Dual) - Peter Stewart MD s Venogram, Unilateral - Peter Stewart MD Ordered Studies 11/13/22 22:36 CL Cath Imgs for PACS use only Stat 11/15/22 14:30 EP Lab Images for PACS ONCE Hospital Course (1) Acute respiratory failure with hypoxia: Likely secondary to acute on chronic systolic CHF Extubated on 11/14 Please see below for management of CHF Patient is not requiring oxygen on ambulation (2) Acute on chronic systolic congestive heart failure: Reported EF approximately 18% in the past. No echocardiogram report on file. TTE 11/14 showed EF of 35%, global hypokinesis and severe concentric LVH Most likely triggered by bradycardia and complete heart block. Please see management for complete heart block below Was diuresed with IV Lasix, with good clinical and diuretic response Now on 20 mg of p.o. Lasix Appears euvolemic Renal function tolerating with stable creatinine Underwent cardiac catheterization 11/14 that showed clean coronaries Discontinued Walters catheter Patient will follow up with CHF clinic in 1 to 2 weeks (3) Complete heart block: Dual-chamber pacemaker placed on 11/15 EP cardiology on board. Patient will follow-up with EP clinic Lyme's disease negative. TSH normal (4) Nonischemic cardiomyopathy: Patient had a cardiac catheterization that showed normal coronaries Echocardiogram showed EF of 35% Now on p.o. Lasix 20 mg Started guideline directed medical therapy Now being discharged on Coreg , Entresto (5) HTN (hypertension): Patient was started on lisinopril 5 mg p.o. but now switched to Entresto and Coreg Also on 20 mg of p.o. Lasix (6) Hyperlipidemia: Continue statin (7) Sleep apnea: (8) Status post placement of cardiac pacemaker: Placed 11/15 (9) Haemophilus influenzae laryngotracheobronchitis: Sputum culture grew Haemophilus influenzae when the patient was intubated Patient is not showing any signs of pneumonia with no fever, leukocytosis, shortness of breath. Complaining of cough with productive sputum Started Augmentin to treat haemophilus bronchitis Total Time Total Time Spent Total Time Spent (In Minutes): 35 Discharge Plan Discharge Items Patient Disposition: Home - Self-Care Reason For Visit: RESPIRATORY HEART FAILURE Discharge Diagnosis: Complete heart block leading to acute on chronic systolic congestive heart failure leading to acute hypoxic respiratory failure Activity: Resume your previous activity Non-emergency contact: Primary Care Provider Call non-emergency contact if: you have any medication questions Follow-up/Referrals: Peter Stewart MD [Physician] - Joceline Vargas PA-C [Physician Wastewater Manager] - 11/24/22 10:30 am Margaret Holcomb PA-C [Primary Care Provider] - (PLEASE CALL YOUR PRIMARY CARE PROVIDER TO SCHEDULE A DISCHARGE FOLLOW-UP APPOINTMENT WITHIN 7-10 DAYS) Diet: Low Sodium (2gm) Addtl Attending Provider Instructions: Advised to follow-up with PCP in 1 week, EP cardiology in 1 month, CHF clinic in 1 week Pending Studies at Discharge: No Stand-Alone Forms: [facility] Medications and DC Order Prescriptions: New amoxicillin-pot clavulanate [Augmentin] 500-125 mg tablet 1 tab PO BID 6 Days Qty: 12 0RF Entresto 49-51 mg tablet 1 tab PO BID 28 Days Qty: 56 0RF carvedilol [Coreg] 25 mg tablet 25 mg PO BID Qty: 60 0RF Rx Instructions: must administer with a meal/food furosemide [Lasix] 20 mg tablet 20 mg PO DAILY Qty: 30 0RF Continued atorvastatin 40 mg tablet 40 mg PO QPM tamsulosin 0.4 mg capsule 0.4 mg PO QPM aspirin [Ecotrin Low Strength] 81 mg Tablet,Delayed Release (Dr/Ec) 81 mg PO BID Karuna-Agustina Heartburn-Gas 750-80 mg Tablet,Chewable 1 tab PO DIRECTED PRN (Reason: HEARTBURN/GAS) Rx Instructions: do not exceed 6 tabs per 24 hrs Discontinued isosorbide mononitrate 60 mg tablet extended release 24 hr 60 mg PO BID labetalol 200 mg tablet 200 mg PO TID lisinopril-hydrochlorothiazide 20-12.5 mg Tablet 1 tab PO BID Discharge Orders: Discharge Order- CHF (Routine); Ordered 11/19/22 Ordered By: Liam Haro/Other Patient Handouts: A1C, Sacubitril/Valsartan Oral Tablet, Carvedilol Oral Tablet, Furosemide Oral Tablet, Pacemakers, Living with a Pacemaker, 5 Steps for Eating Healthier, Heart Failure Dc, Pacemaker Implant Dc, Heart Block 3rd Degree Admission Data Admit Date/Time: 11/14/22 00:10 Attending Provider: Liam Curtis Admit Provider: Scot Rodriguez Primary Care Provider: Margaret Holcomb Other Providers: [facility] ; Paul Marcos ; [facility] Other Interventions: Discharge Summary Assessment (RN) Last Done: 11/19/22 10:18 Coding Level of Care Code 40947 INP/OBS DISCH >30 MIN Diagnoses Acute respiratory failure with hypoxia J96.01 Acute on chronic systolic congestive heart failure I50.23 Complete heart block I44.2 Nonischemic cardiomyopathy I42.8 HTN (hypertension) I10 Hyperlipidemia E78.5 Sleep apnea G47.30 Status post placement of cardiac pacemaker Z95.0 Haemophilus influenzae laryngotracheobronchitis J40; B96.3
[2022-11-19 10:23] VITALS: BP 147/88; PULSE 78
== END 2022-11-19 11:58 | disposition home or self-care (01) | DRG 242 ==
LOC: ED 22:23 → OR 22:57 → 1E 22:59 → SUATTDRO 11-14 00:10 → 1E 11-14 00:10 → 2N 11-16 11:01